=== PATIENT | male | born 1955 | race Caucasian/White ===

== ENCOUNTER → 2019-10-03 16:58 | Outpatient (BNVA) | payer MEDICARE, SELFPAY | PROVIDERS: Family Provider Nurse Practitioner; Visit Provider Family Medicine | DX: E11.9 Type 2 diabetes mellitus without complications (principal); E11.42 Type 2 diabetes mellitus with diabetic polyneuropathy; Z79.4 Long term (current) use of insulin; E78.5 Hyperlipidemia, unspecified; I10 Essential (primary) hypertension; J44.9 Chronic obstructive pulmonary disease, unspecified; K21.9 Gastro-esophageal reflux disease without esophagitis | CPT/HCPCS: 80053; 80061; 83036; 85025 ==

== ENCOUNTER → 2019-12-13 09:01 | Outpatient (BNVA) | payer MEDICARE, SELFPAY | PROVIDERS: Family Provider Nurse Practitioner; Visit Provider Family Medicine | DX: E11.42 Type 2 diabetes mellitus with diabetic polyneuropathy (principal); Z79.4 Long term (current) use of insulin | CPT/HCPCS: 83036 ==

== ENCOUNTER 2020-03-15 11:25 | Emergency (ER) | payer MEDICARE, SELFPAY ==
[2020-03-15 11:31] VITALS: BP 106/55; PULSE 78; RESP 20; TEMP 36.4; O2SAT 93; BMI 46.5
[2020-03-15 11:41] VITALS: BP 130/64; PULSE 75; RESP 17; O2SAT 94
[2020-03-15] MEDS: HYDROcodone-acetaminophen 7.5-325 mg Tablet 1 TAB PO (11:41)
--- NOTE | 2020-03-15 11:46 | W.ED.BACK ---
HPI - Back Pain/Injury General: Chief Complaint: Back Pain/Injury Stated Complaint: BACK PAIN Time Seen by Provider: 03/15/20 11:29 Source: patient Mode of arrival: ambulatory Limitations: no limitations History of Present Illness: HPI Narrative: 4-year-old male states for the last 5 days has had left lower back pain has been sharp in nature. He states it is much worse with twisting or bending. States is improved with rest. He states the pain is a 5 out of 10. He denies any bowel or bladder incontinence. Denies any numbness to his legs. Denies any fever or injury. Associated symptoms: Deny abdominal pain, chills, dysuria, fever(s), nausea or vomiting Review of Systems Const: Denies: fever(s), chills, body aches or change in appetite Eyes: Denies: blurry vision or eye discomfort ENMT: Denies: throat pain or dental pain Card: Denies: chest pain Resp: Denies: dyspnea GI: Denies: abdominal pain, nausea, vomiting or diarrhea : Denies: dysuria Musc: Reports: back pain Skin/Breast: Denies: rash Neuro: Denies: headache(s) Psych: Denies: depression Stephen/Lymph: Denies: easy bruising All/Imm: Denies: urticaria PFSH ED PFSH: Medical History (Updated 03/15/20 @ 11:37 by Nik Spence MD) BPH (benign prostatic hyperplasia) Chronic pain of both shoulders Dyslipidemia Generalized anxiety disorder GERD (gastroesophageal reflux disease) Hypertension Major depressive disorder, recurrent, moderate Seasonal allergies Sleep apnea Type 2 diabetes mellitus Surgical History H/O circumcision H/O shoulder surgery H/O wrist surgery History of appendectomy History of colonoscopy Family History Mother Diabetes Grandmother Heart disease Social History Smoking and tobacco status: former smoker Quit status (tobacco): has quit using tobacco Year quit tobacco: 2011 Second hand smoke exposure: No Alcohol intake: never Desire information about alcohol rehabilitation?: No Desire information about substance/drug rehabilitation?: No Caregiver/support person: Yes Lives independently: No Household members: spouse History of recent travel: No Sexually active: Yes Current gender identity: Male Physical Exam Const: COMMON NORMALS: no acute distress, patient oriented x3 and healthy appearing HENMT: COMMON NORMALS: normocephalic and atraumatic HEAD & SCALP: normocephalic and atraumatic Eye: COMMON NORMALS: Equal, round and reactive pupils present and EOMs intact bilaterally PUPIL: Yes Equal, round and reactive pupils present Neck/C-Spine: COMMON NORMALS: full ROM and supple Chest: COMMONS NORMALS: normal inspection of the chest and normal palpation of entire chest wall Resp: COMMON NORMALS: normal respiratory effort, No retractions, No use of accessory muscles and clear to auscultation bilaterally AUSCULTATION: clear to auscultation bilaterally Cardio: COMMON NORMALS: regular rate, regular rhythm and No murmurs present (Cardio) RATE: regular rate RHYTHM: regular rhythm GI: COMMON NORMALS: Normal to inspection, nondistended, normoactive bowel sounds present, Soft to palpation, non-tender and no masses PALPATION: Yes Soft to palpation Back/Pelvis: OTHER: Tenderness over left lower back. No midline tenderness. No saddle anesthesia. Extremity: COMMON NORMALS: normal to inspection and full ROM Neuro: COMMON NORMALS: patient oriented x3, moves all extremities and no focal motor deficits Psych: COMMON NORMALS: mental status grossly normal, Normal thought process present and cooperative THOUGHT PROCESS: Normal thought process present Skin: COMMON NORMALS: no rashes or lesions noted and no wounds GENERAL SKIN EXAM: no rashes or lesions noted Course Vital Signs: Vital signs: Vital Signs Temperature 97.6 F 03/15/20 11:31 Pulse Rate 75 03/15/20 11:41 Respiratory Rate 17 03/15/20 11:41 Blood Pressure 130/64 03/15/20 11:41 Pulse Oximetry 94 03/15/20 11:41 MDM - Back Pain/Injury MDM Narrative: Medical decision making narrative: Patient presents with back pain is likely a lumbar strain. Patient is well-appearing here and is stable for discharge. He has no signs of epidural abscess or cord compression. We will place him on Naprosyn along with Robaxin. He is to follow-up with PCP in 3 to 5 days return if worsening. He understands agrees to plan. Discharge Plan Discharge Patient Disposition: Home Clinical Impression: Lumbar strain Qualifiers: Encounter type: initial encounter Qualified Code(s): S39.012A - Strain of muscle, fascia and tendon of lower back, initial encounter Condition: Stable Prescriptions: New Naprosyn 500 mg tablet 500 mg PO BID PRN (Reason: pain) Qty: 20 RF: 0 Marshall 5-325 mg tablet 1 tab PO Q6H PRN (Reason: pain) Qty: 14 RF: 0 Robaxin-750 750 mg tablet 750 mg PO Q6H Qty: 30 RF: 0 No Action atorvastatin 20 mg tablet 20 mg PO DAILY 30 Days Qty: 30 RF: 11 cetirizine 10 mg capsule 10 mg PO DAILY 30 Days Qty: 30 RF: 11 lisinopril 10 mg tablet 10 mg PO DAILY 30 Days Qty: 30 RF: 5 (DME) blood-glucose meter Misc See Rx Instructions .ROUTE .MEDSUPPLY Qty: 1 RF: 0 polymyxin B sulf-trimethoprim [Polytrim] 10,000 unit- 1 mg/mL drops 1 drp ophthalmic (eye) .four times daily 7 Days Qty: 10 RF: 0 bupropion HCl [Wellbutrin XL] 300 mg tablet extended release 24 hr 300 mg PO QAM Qty: 30 RF: 3 trazodone 100 mg tablet 100 mg PO .One to two bedtime PRN (Reason: insomnia) Qty: 60 RF: 3 hydroxyzine pamoate [Vistaril] 25 mg capsule 50 mg PO TID PRN (Reason: anxiety) Qty: 180 RF: 3 omeprazole 20 mg capsule,delayed release(DR/EC) 20 mg PO BID 30 Days Qty: 60 RF: 0 doxazosin 4 mg tablet See Rx Instructions .ROUTE .COMPLEX Qty: 30 RF: 0 cyclobenzaprine 10 mg tablet See Rx Instructions .ROUTE .COMPLEX Qty: 30 RF: 0 atenolol 25 mg tablet See Rx Instructions .ROUTE .COMPLEX Qty: 30 RF: 0 gabapentin 300 mg capsule See Rx Instructions .ROUTE .COMPLEX Qty: 30 RF: 0 ibuprofen 800 mg tablet See Rx Instructions .ROUTE .COMPLEX Qty: 60 RF: 0 glipizide 10 mg tablet See Rx Instructions .ROUTE .COMPLEX Qty: 60 RF: 0 insulin aspart U-100 [Novolog Flexpen U-100 Insulin] 100 unit/mL (3 mL) insulin pen See Rx Instructions .ROUTE .COMPLEX Qty: 30 RF: 0 insulin degludec [Tresiba FlexTouch U-200] 200 unit/mL (3 mL) insulin pen See Rx Instructions .ROUTE .COMPLEX Qty: 27 RF: 0 Discharge Orders: Discharge Order (Routine); Ordered 03/15/20 Ordered By: Nik Spence Referrals: Kylie Mills DPM [Family Provider] - 1-3 days Discharge Diet: Advance as tolerated Discharge Activity: Resume usual activity Patient Instructions: Low Back Strain (ED) Coding Level of Care Code ED Torch Straightener And Heater for Ammy Rust
== END 2020-03-15 11:43 | disposition home or self-care (01) ==
LOC: ER 05-16 10:35
PROVIDERS: Emergency Provider Emergency Medicine; Family Provider Nurse Practitioner
DX: S39.012A Strain of muscle, fascia and tendon of lower back, initial encounter (principal); Z79.4 Long term (current) use of insulin; E78.5 Hyperlipidemia, unspecified; I10 Essential (primary) hypertension; E11.9 Type 2 diabetes mellitus without complications; Z87.891 Personal history of nicotine dependence; X58.XXXA Exposure to other specified factors, initial encounter
CPT/HCPCS: 12345; 99281

== ENCOUNTER → 2020-03-19 18:00 | Outpatient (BNVA) | payer MEDICARE, SELFPAY | PROVIDERS: Family Provider Nurse Practitioner; Visit Provider Family Medicine | DX: E11.42 Type 2 diabetes mellitus with diabetic polyneuropathy (principal); I10 Essential (primary) hypertension; Z79.4 Long term (current) use of insulin; G89.29 Other chronic pain; M54.9 Dorsalgia, unspecified | CPT/HCPCS: 80048; 83036 ==

== ENCOUNTER → 2020-04-25 11:16 | Outpatient (BNVA) | payer MEDICARE, SELFPAY | PROVIDERS: Family Provider Nurse Practitioner; Visit Provider Family Medicine | DX: S91.332A Puncture wound without foreign body, left foot, initial encounter (principal); M79.672 Pain in left foot; X58.XXXA Exposure to other specified factors, initial encounter | CPT/HCPCS: 73630 ==

== ENCOUNTER → 2020-06-18 14:02 | Outpatient (BNVA) | payer MEDICARE, SELFPAY | PROVIDERS: Family Provider Nurse Practitioner; Visit Provider Family Medicine | DX: E11.42 Type 2 diabetes mellitus with diabetic polyneuropathy (principal); M54.9 Dorsalgia, unspecified; G89.29 Other chronic pain; M54.5 Low back pain; I10 Essential (primary) hypertension; L98.491 Non-pressure chronic ulcer of skin of other sites limited to breakdown of skin; F33.1 Major depressive disorder, recurrent, moderate; Z79.4 Long term (current) use of insulin | CPT/HCPCS: 83036 ==

== ENCOUNTER → 2020-09-11 11:20 | Outpatient (BNVA) | payer MEDICARE, SELFPAY | PROVIDERS: Family Provider Nurse Practitioner; Visit Provider Family Medicine | DX: E11.42 Type 2 diabetes mellitus with diabetic polyneuropathy (principal); E78.5 Hyperlipidemia, unspecified; Z79.4 Long term (current) use of insulin; J32.9 Chronic sinusitis, unspecified; K21.9 Gastro-esophageal reflux disease without esophagitis; I10 Essential (primary) hypertension | CPT/HCPCS: 80048; 80061; 83036 ==

== ENCOUNTER → 2020-12-11 12:00 | Outpatient (BNVA) | payer MEDICARE, SELFPAY | PROVIDERS: Family Provider Nurse Practitioner; PCP Family Medicine; Visit Provider Family Medicine | DX: E11.42 Type 2 diabetes mellitus with diabetic polyneuropathy (principal); I10 Essential (primary) hypertension; M54.5 Low back pain; G89.29 Other chronic pain; Z79.4 Long term (current) use of insulin | CPT/HCPCS: 80048; 83036 ==

== ENCOUNTER → 2021-01-05 17:29 | Outpatient (BNVA) | payer MEDICARE, SELFPAY | PROVIDERS: Family Provider Nurse Practitioner; PCP Family Medicine; Visit Provider Nurse Practitioner Family | DX: Z20.822 Contact with and (suspected) exposure to COVID-19 (principal) | CPT/HCPCS: 87635 ==

== ENCOUNTER → 2021-03-17 09:26 | Outpatient (BNVA) | payer MEDICARE, SELFPAY | PROVIDERS: Family Provider Nurse Practitioner; PCP Family Medicine; Visit Provider Family Medicine | DX: E11.42 Type 2 diabetes mellitus with diabetic polyneuropathy (principal); I10 Essential (primary) hypertension; M54.9 Dorsalgia, unspecified; G89.29 Other chronic pain; M25.511 Pain in right shoulder; K21.9 Gastro-esophageal reflux disease without esophagitis; E78.5 Hyperlipidemia, unspecified; N40.0 Benign prostatic hyperplasia without lower urinary tract symptoms; M25.512 Pain in left shoulder; N40.1 Benign prostatic hyperplasia with lower urinary tract symptoms; R39.11 Hesitancy of micturition; Z79.4 Long term (current) use of insulin | CPT/HCPCS: 80048; 83036 ==

== ENCOUNTER → 2021-07-07 09:24 | Outpatient (BNVA) | payer MEDICARE, SELFPAY | PROVIDERS: Family Provider Nurse Practitioner; PCP Family Medicine; Visit Provider Family Medicine | DX: M54.9 Dorsalgia, unspecified (principal); G89.29 Other chronic pain; M25.511 Pain in right shoulder; M25.512 Pain in left shoulder; E11.42 Type 2 diabetes mellitus with diabetic polyneuropathy; E78.5 Hyperlipidemia, unspecified; I10 Essential (primary) hypertension; F33.1 Major depressive disorder, recurrent, moderate; Z79.4 Long term (current) use of insulin | CPT/HCPCS: 80048; 80061; 83036 ==

== ENCOUNTER → 2021-10-06 13:43 | Outpatient (BNVA) | payer MEDICARE, SELFPAY | PROVIDERS: Family Provider Nurse Practitioner; PCP Family Medicine; Visit Provider Family Medicine | DX: E11.9 Type 2 diabetes mellitus without complications (principal); M54.9 Dorsalgia, unspecified; G89.29 Other chronic pain; M25.511 Pain in right shoulder; M25.512 Pain in left shoulder; N40.0 Benign prostatic hyperplasia without lower urinary tract symptoms; J30.2 Other seasonal allergic rhinitis; E78.5 Hyperlipidemia, unspecified; I10 Essential (primary) hypertension; K21.9 Gastro-esophageal reflux disease without esophagitis; E11.42 Type 2 diabetes mellitus with diabetic polyneuropathy; Z79.4 Long term (current) use of insulin; Z12.5 Encounter for screening for malignant neoplasm of prostate; F33.1 Major depressive disorder, recurrent, moderate | CPT/HCPCS: 80053; 83036; 84153 ==

== ENCOUNTER → 2021-12-05 12:29 | Outpatient (BNVA) | payer MEDICARE, SELFPAY | PROVIDERS: Family Provider Nurse Practitioner; PCP Family Medicine; Visit Provider Family Medicine | DX: G89.29 Other chronic pain (principal) | CPT/HCPCS: 72100 ==

== ENCOUNTER 2021-12-12 12:06 | Emergency (ER) | payer MEDICARE, SELFPAY ==
[2021-12-12 12:16] VITALS: BP 95/62; PULSE 70; RESP 15; TEMP 36.3; O2SAT 94; BMI 47.2
[2021-12-12 13:06] LABS: Add Urine Microscopic? NO; Charge for UA Resulting for Rev; Urine Appearance Clear (CLEAR); Urine Color Yellow (Yellow)
[2021-12-12 13:07] LABS: Bilirubin Urine Neg (Negative); Blood Urine Neg (Negative); Glucose Urine UA 2+ (Normal); Ketones Urine Negative (Negative); Leukocyte Esterase Urine Negative (Negative); Nitrate Urine Negative (Negative); Protein Urine Neg (Negative); Specific Gravity, Urine 1.025 (1.005-1.030); Urobilinogen Urine Norm (Negative); pH Urine 5 (5-7)
--- NOTE | 2021-12-12 13:32 | CT_ITS ---
WS: [id number] CT LUMBAR SPINE, noncontrast. HISTORY: back pain TECHNIQUE: Contiguous 2.5 mm axial imaging are performed. Sagittal and coronal reformats are submitte d and reviewed. [facility] at least one of these dose optimization techni ques: automated exposure control; mA and/or kV adjustment per patient size (includes targeted exams w here dose is matched to clinical indication); or iterative reconstruction. IV contrast: None DLP: 2914.59 mGy.cm COMPARISON: 09/16/2014 Posterior lumbar alignment is normal. Mild disc desiccation at L5-S1. No fracture. L1-2: Normal. L2-3: Mild disc bulging. No stenosis. L3-4: Mild disc bulging and mild ligamentum flavum and facet arthritis. There is mild central and sub articular recess narrowing. L4-5: Moderate annular disc bulging encroaching upon the ventral thecal sac. Mild ligamentum flavum a nd facet arthritis. Mild bilateral foraminal stenosis. Mild disc encroachment upon the traversing L5 nerve roots. L5-S1: Mild annular disc bulge with a broad-based central disc protrusion. Disc protrusion extends in to the subarticular recesses and foramina, greatest on the LEFT. Mass effect upon the central thecal sac and narrowing of the LEFT subarticular recess. Mild atherosclerosis aorta. Degenerative air in the SI joints. CT/CT lumbar spine wo con* [id number] IMPRESSION: 1. No acute lumbar spine fracture. 2. New broad-based central to RIGHT paracentral disc protrusion at L5-S1. Cont act and deformity of the ventral thecal sac with encroachment into the subartic ular recesses and contact on the S1 nerve roots. Greater contact on the LEFT S1 nerve root with more significant displacement. 3. Mild central and subarticular recess narrowing at L3-4. 4. Mild disc encroachment upon the traversing L5 nerve roots.
--- NOTE | 2021-12-12 13:33 | ED_ITS ---
HPI - Back Pain/Injury General: Chief Complaint: Urogenital-Male Stated Complaint: kidney pain Time Seen by Provider: 12/12/21 13:23 Source: patient and family Mode of arrival: ambulatory Limitations: no limitations History of Present Illness: Patient is a 66-year-old male who presents to ED today along with his for evaluation of lower back pain. Patient states pain has been present over the past 2 weeks. Patient states he was recently seen by his primary care provider and had lumbar x-rays performed. Radiologist commented on bilateral renal calculi. Patient states his primary care provider sent him over for further evaluation of his kidney stones. Patient is not having any flank pain. He reports a previous history of kidney stones. He is not complaining of hematuria, urinary urgency or frequency, or difficulty starting a stream. He is not running fevers. He has no abdominal pain, nausea, vomiting, diarrhea. He does report his back pain intermittently will radiate down his left lower extremity. He does not complain of any saddle anesthesia or dysfunction with bowel/bladder. MD elicited complaint: back pain Onset (ago): week(s) Timing: constant Severity: severe Similar Symptoms Previously: No Location: lumbar spine, right lower back and left lower back Radiation: left leg below the knee Relieving factors: none Associated symptoms: Deny abdominal pain, chills, change in bowel habits, dysuria, fatigue, fever(s), hematuria, nausea, urinary urgency or vomiting Work related injury: No Review of Systems Const: Denies: fever(s), chills, body aches, fatigue or malaise Card: Denies: chest pain Resp: Denies: dyspnea GI: Denies: abdominal pain, nausea, vomiting, diarrhea or change in bowel habits : Denies: flank pain, difficulty urinating, dysuria, urinary frequency, urinary urgency, urinary hesitancy or hematuria Musc: Reports: back pain; Denies: neck pain, extremity pain or joint pain Skin/Breast: Denies: rash Neuro: Denies: headache(s), numbness in extremities, weakness in extremities or sensory changes PFS ED PFSH: Medical History BPH (benign prostatic hyperplasia) (~06/2020) Chronic back pain Chronic pain of both shoulders Dyslipidemia Generalized anxiety disorder GERD (gastroesophageal reflux disease) Hypertension Major depressive disorder, recurrent, moderate Psychiatric care Seasonal allergies Sleep apnea Type 2 diabetes mellitus Surgical History H/O circumcision H/O shoulder surgery H/O wrist surgery History of appendectomy History of colonoscopy Family History Mother Diabetes Grandmother Heart disease Social History Smoking and tobacco status: former smoker Quit status (tobacco): has quit using tobacco Year quit tobacco: 2011 Second hand smoke exposure: No Alcohol intake: never Desire information about alcohol rehabilitation?: No Desire information about substance/drug rehabilitation?: No Caregiver/support person: Yes Lives independently: No Household members: spouse History of recent travel: No Sexually active: Yes Current gender identity: Male Physical Exam Const: COMMON NORMALS: no acute distress, patient oriented x3, no limitations and alert GENERAL APPEARANCE: cooperative NUTRITIONAL APPEARANCE: obese m orbidly obese ORIENTATION/CONSCIOUSNESS: Yes awake, Yes oriented to person, Yes oriented to place and Yes oriented to time Resp: COMMON NORMALS: normal respiratory effort and clear to auscultation bilaterally AUSCULTATION: clear to auscultation bilaterally Cardio: COMMON NORMALS: regular rate and regular rhythm RATE: regular rate RHYTHM: regular rhythm GI: COMMON NORMALS: Normal to inspection, nondistended, normoactive bowel s ounds present, Soft to palpation and non-tender PALPATION: Yes Soft to pa lpation : COMMON NORMALS: Yes no CVA tenderness BLADDER/KIDNEY EXAM: Yes no CVA tenderness Back/Pelvis: COMMON NORMALS: no CVA tenderness THORACIC SPINE/UPPER BACK: Yes normal to inspection, No thoracic spinal tenderness and No paraspinal muscle tenderness LUMBAR SPINE/LOWER BACK: Yes pain with ROM, Yes lumbar spinal tenderness, Yes paraspinal muscle tenderness and No paraspinal muscle spasm PELVIS: Yes buttocks normal SACROILIAC JOINTS: Yes SI joints normal SACRUM: no tenderness COCCYX: no tenderness OTHER: pain across lower back and mid to lower lumbar vertebrae Extremity: COMMON NORMALS: normal to inspection and full ROM GENERAL: Yes normal exam except as noted Neuro: AMBERLY COMA SCALE: document GCS findings [place] coma scale eye opening: Spontaneous Amberly coma scale verbal response: Orientated Amberly coma scale motor response: Obey commands Amberly coma scale total score: 15 COMMON NORMALS: patient oriented x3, moves all extremities, no focal motor deficits, no sensory deficits noted and gait normal SENSORIUM/ORIENTATION: Yes alert, Yes oriented to person, Yes oriented to place and Yes oriented to time MOTOR EXAM: 5/5 motor strength present throughout Skin: COMMON NORMALS: no rashes or lesions noted GENERAL SKIN EXAM: no rash es or lesions noted Course Vital Signs: Vital signs: Vital Signs Temperature 97.4 F L 12/12/21 12:16 Pulse Rate 70 12/12/21 12:16 Respiratory Rate 15 12/12/21 12:16 Blood Pressure 95/62 12/12/21 12:16 Pulse Oximetry 94 12/12/21 12:16 MDM - Back Pain/Injury Medical Decision Making Patient had the same bilateral renal calculi on previous x-rays dated back from 2018. He is not having any flank pain. He is not having any urinary complaints. He is tender to palpation to his mid to lower lumbar spine and across his lower back. He does have lumbar radiculopathy symptoms. I do not have any suspicion that patient's back pain is originating from the calculus formations. Blood work overall is unremarkable. He is an uncontrolled diabetic. His UA is clear. CT scan of his lumbar spine does show broad-based disc protrusion at his L5-S1 level with contact on his left S1 nerve root. Patient already takes anti-inflammatories, muscle relaxers, and hydrocodone as needed for pain. Due to his uncontrolled diabetes I would be hesitant to place him on steroids at this time. Recommend he follow-up with primary care for further evaluation and initiation of conservative treatments at this time for his back pain including but not limited to weight loss, physical therapy, pain management, etc. Labs : 12/12/21 13:40 12/12/21 13:40 Radiology Impressions Lumbar Spine CT 12/12/21 13:32 IMPRESSION: 1. No acute lumbar spine fracture. 2. New broad-based central to RIGHT paracentral disc protrusion at L5-S1. Contact and deformity of the ventral thecal sac with encroachment into the subarticular recesses and contact on the S1 nerve roots. Greater contact on the LEFT S1 nerve root with more significant displacement. 3. Mild central and subarticular recess narrowing at L3-4. 4. Mild disc encroachment upon the traversing L5 nerve roots. Laboratory Results WBC 10.5 10^3/uL (4.0-10.0) H 12/12/21 13:40 RBC 4.25 10^6/uL (4.1-5.3) 12/12/21 13:40 Hgb 12.3 g/dL (11.7-16.6) 12/12/21 13:40 Hct 36.5 % (42.0-52.0) L 12/12/21 13:40 MCV 85.9 fl (80-94) 12/12/21 13:40 MCH 28.9 pg (28.0-34.0) 12/12/21 13:40 MCHC 33.7 g/dL (30.0-36.0) 12/12/21 13:40 RDW 13.0 % (12.1-15.1) 12/12/21 13:40 Plt Count 269 10^3/cmm (130-400) 12/12/21 13:40 MPV 10.5 fL (7.4-10.4) H 12/12/21 13:40 Neut % (Auto) 64.2 % 12/12/21 13:40 Lymph % (Auto) 26.6 % 12/12/21 13:40 [place] % (Auto) 6.7 % 12/12/21 13:40 Eos % (Auto) 1.3 % 12/12/21 13:40 Baso % (Auto) 0.5 % 12/12/21 13:40 Neut # (Auto) 6.76 10^3/uL (1.8-7.7) 12/12/21 13:40 Lymph # (Auto) 2.8 10^3/uL (0.8-4.8) 12/12/21 13:40 [place] # (Auto) 0.7 10^3/uL (0.2-0.9) 12/12/21 13:40 Eos # (Auto) 0.1 10^3/uL (0.0-0.8) 12/12/21 13:40 Baso # (Auto) 0.1 10^3/uL (0.0-0.1) 12/12/21 13:40 Nucleated RBC % (auto) 0 % 12/12/21 13:40 Nucleated RBCs # 0.0 /100WBC 12/12/21 13:40 Sodium 134 mmol/L (136-145) L 12/12/21 13:40 Potassium 4.7 mmol/L (3.5-5.1) 12/12/21 13:40 Chloride 100 mmol/L (98-107) 12/12/21 13:40 Carbon Dioxide 23 mmol/L (22-29) 12/12/21 13:40 Anion Gap 15.7 (5-19) 12/12/21 13:40 BUN 21 mg/dL (8-23) 12/12/21 13:40 Creatinine 1.1 mg/dL (0.7-1.2) 12/12/21 13:40 GFR Calculation 67.4 mL/min (90-130) L 12/12/21 13:40 Glucose 256 mg/dL (65-115) H 12/12/21 13:40 Calculated Osmolality 290 mOsm/kg (285-295) 12/12/21 13:40 Calcium 8.9 mg/dL (8.5-10.5) 12/12/21 13:40 Total Bilirubin 0.3 mg/dL (0.15-1.2) 12/12/21 13:40 AST 24 U/L (0-40) 12/12/21 13:40 ALT 18 U/L (0-41) 12/12/21 13:40 Alkaline Phosphatase 85 IU/L (40-130) 12/12/21 13:40 Total Protein 7.7 g/dL (6.6-8.7) 12/12/21 13:40 Albumin 3.9 g/dL (3.5-5.2) 12/12/21 13:40 Globulin 3.8 g/dL (1.3-4.6) 12/12/21 13:40 Urine Color Yellow (Yellow) 12/12/21 13:00 Urine Appearance Clear (CLEAR) 12/12/21 13:00 Urine pH 5 (5-7) 12/12/21 13:00 Ur Specific [place] 1.025 (1.005-1.030) 12/12/21 13:00 Urine Protein Neg (Negative) 12/12/21 13:00 Urine Glucose (UA) 2+ (Normal) H 12/12/21 13:00 Urine Ketones Negative (Negative) 12/12/21 13:00 Urine Blood Neg (Negative) 12/12/21 13:00 Urine Nitrate Negative (Negative) 12/12/21 13:00 Urine Bilirubin Neg (Negative) 12/12/21 13:00 Urine Urobilinogen Norm mg/dL (Negative) 12/12/21 13:00 Ur Leukocyte Esterase Negative (Negative) 12/12/21 13:00 Discharge Plan Discharge Patient Disposition: Home Clinical Impression: Protrusion of lumbar intervertebral disc Condition: Stable Prescriptions: No Action (DME) blood-glucose meter Misc See Rx Instructions .ROUTE .MEDSUPPLY Qty: 1 0RF Rx Instructions: ONE TOUCH ULTRA METER hydroxyzine pamoate [Vistaril] 25 mg capsule 50 mg PO TID PRN (Reason: anxiety) Qty: 180 3RF Rx Instructions: 1-2 caps 3x daily trazodone 100 mg tablet See Rx Instructions .ROUTE .COMPLEX Qty: 60 2RF Dose Instruction: TAKE 1 TO 2 TABLETS BY MOUTH AT BEDTIME FOR INSOMNIA Rx Instructions: TAKE 1 TO 2 TABLETS BY MOUTH AT BEDTIME FOR INSOMNIA bupropion HCl 300 mg tablet extended release 24 hr See Rx Instructions .ROUTE .COMPLEX Qty: 30 2RF Dose Instruction: TAKE ONE TABLET BY MOUTH EVERY MORNING Rx Instructions: TAKE ONE TABLET BY MOUTH EVERY MORNING Tresiba FlexTouch U-200 200 unit/mL (3 mL) insulin pen See Rx Instructions .ROUTE .COMPLEX Qty: 27 2RF Dose Instruction: 85 UNITS SUBCUT TWICE A DAY FOR 30 DAYS Rx Instructions: 85 UNITS SUBCUT TWICE A DAY FOR 30 DAYS insulin aspart U-100 [Novolog Flexpen U-100 Insulin] 100 unit/mL (3 mL) insulin pen See Rx Instructions .ROUTE .COMPLEX Qty: 60 2RF Dose Instruction: 60 UNIT (0.6 ML) SUBCUT THREE TIMES A DAY FOR 30 DAYS WITH MEALS Rx Instructions: 60 UNIT (0.6 ML) SUBCUT THREE TIMES A DAY FOR 30 DAYS WITH MEALS glipizide 10 mg tablet See Rx Instructions .ROUTE .COMPLEX Qty: 60 5RF Dose Instruction: TAKE ONE TABLET BY MOUTH TWICE A DAY FOR 30 DAYS Rx Instructions: TAKE ONE TABLET BY MOUTH TWICE A DAY FOR 30 DAYS doxazosin 4 mg tablet See Rx Instructions .ROUTE .COMPLEX Qty: 30 5RF Dose Instruction: TAKE ONE TABLET BY MOUTH DAILY FOR 30 DAYS Rx Instructions: TAKE ONE TABLET BY MOUTH DAILY FOR 30 DAYS cetirizine 10 mg tablet See Rx Instructions .ROUTE .COMPLEX Qty: 30 11RF Dose Instruction: TAKE ONE TABLET BY MOUTH DAILY Rx Instructions: TAKE ONE TABLET BY MOUTH DAILY atorvastatin 20 mg tablet 20 mg PO DAILY 30 Days Qty: 30 5RF Rx Instructions: 340B atenolol 25 mg tablet See Rx Instructions .ROUTE .COMPLEX Qty: 30 5RF Dose Instruction: TAKE ONE TABLET BY MOUTH DAILY FOR 30 DAYS Rx Instructions: TAKE ONE TABLET BY MOUTH DAILY FOR 30 DAYS lisinopril 10 mg tablet 10 mg PO DAILY 30 Days Qty: 30 5RF Rx Instructions: 340B omeprazole 40 mg capsule,delayed release(DR/EC) 40 mg PO DAILY 30 Days Qty: 30 5RF Rx Instructions: 340B hydrocodone-acetaminophen 5-325 mg tablet 1 tab PO DAILY PRN (Reason: pain) 30 Days Qty: 30 0RF (DME) lancets [OneTouch UltraSoft Lancets] Misc See Rx Instructions .ROUTE .COMPLEX Qty: 100 11RF Dose Instruction: CHECK BLOOD SUGAR 4 TIMES DAILY ULTRASOFT LANCETS Rx Instructions: CHECK BLOOD SUGAR 4 TIMES DAILY ULTRASOFT LANCETS (DME) blood sugar diagnostic Strip See Rx Instructions .ROUTE .MEDSUPPLY Qty: 100 12RF Rx Instructions: use three times daily (DME) Comfort EZ Pen [place] 33 gauge x 1/4 needle See Rx Instructions .ROUTE .MEDSUPPLY Qty: 100 11RF Rx Instructions: As directed ibuprofen 800 mg tablet See Rx Instructions .ROUTE .COMPLEX Qty: 60 5RF Dose Instruction: TAKE ONE TABLET BY MOUTH TWICE A DAY NEEDED FOR PAIN FOR 30 DAYS Rx Instructions: TAKE ONE TABLET BY MOUTH TWICE A DAY NEEDED FOR PAIN FOR 30 DAYS 340B gabapentin 300 mg capsule 300 mg PO TID 30 Days Qty: 90 2RF cyclobenzaprine 10 mg tablet See Rx Instructions .ROUTE .COMPLEX Qty: 90 2RF Dose Instruction: TAKE ONE TABLET BY MOUTH THREE TIMES A DAY NEEDED FOR MUSCLE SPASMS FOR 30 DAYS Rx Instructions: TAKE ONE TABLET BY MOUTH THREE TIMES A DAY NEEDED FOR MUSCLE SPASMS FOR 30 DAYS miscellaneous medical supply Misc See Rx Instructions miscellaneous .COMPLEX Qty: 1 5RF Rx Instructions: BiPAP supplies, mask and tubing etc. miscellaneous; Discharge Orders: Discharge ED (Routine); Ordered 12/12/21 Ordered By: Daniela Ashton Referrals: Lia Pennington MD [Primary Care Provider] - Patient Instructions: Lumbar Disc Herniation (ED) Coding Level of Care Code ED Product Development Scientist for Chg Fwd Exam Comprehensive
[2021-12-12 13:46] LABS: Basophils # 0.1 10^3/uL (0.0-0.1); Basophils % 0.5 %; Eosinophils # 0.1 10^3/uL (0.0-0.8); Eosinophils % 1.3 %; Hematocrit 36.5 % (42.0-52.0); Hemoglobin 12.3 g/dL (11.7-16.6); Lymphocytes # 2.8 10^3/uL (0.8-4.8); Lymphocytes % 26.6 %; Mean Corpuscular HGB Conc 33.7 g/dL (30.0-36.0); Mean Corpuscular Hemoglobin 28.9 pg (28.0-34.0); Mean Corpuscular Volume 85.9 fl (80-94); Mean Platelet Volume 10.5 fL (7.4-10.4); Monocytes # 0.7 10^3/uL (0.2-0.9); Monocytes % 6.7 %; Neutrophils # 6.76 10^3/uL (1.8-7.7); Neutrophils % 64.2 %; Nucleated Red Blood Cells % 0 %; Platelet Count 269 10^3/cmm (130-400); Red Blood Count 4.25 10^6/uL (4.1-5.3); White Blood Count 10.5 10^3/uL (4.0-10.0)
[2021-12-12] MEDS: ketorolac 30 mg/mL INJ IVP (14:02)
[2021-12-12] MEDS: orphenadrine 30 mg/mL Inj 2 mL 60 MG IVP (14:03)
[2021-12-12 14:12] LABS: Albumin Level 3.9 g/dL (3.5-5.2); Alkaline Phosphatase 85 IU/L (40-130); Blood Urea Nitrogen 21 mg/dL (8-23); Calcium 8.9 mg/dL (8.5-10.5); Carbon Dioxide 23 mmol/L (22-29); Chloride 100 mmol/L (98-107); Globulin 3.8 g/dL (1.3-4.6); Glomerular Filtration Rate 67.4 mL/min (90-130); Glucose 256 mg/dL (65-115); Osmolality Calculated 290 mOsm/kg (285-295); Sodium 134 mmol/L (136-145); Total Bilirubin 0.3 mg/dL (0.15-1.2); Total Protein 7.7 g/dL (6.6-8.7)
[2021-12-12 14:16] LABS: Alanine Aminotransferase 18 U/L (0-41); Anion Gap 15.7 (5-19); Aspartate Amino Transferase 24 U/L (0-40); Potassium 4.7 mmol/L (3.5-5.1)
[2021-12-12] MEDS: dexamethasone 10 mg/mL INJ 6 MG IM (14:41)
== END 2021-12-12 15:35 | disposition home or self-care (01) ==
PROVIDERS: Family Medicine; Emergency Provider Physician Assistant; PCP Family Medicine
DX: M51.26 Other intervertebral disc displacement, lumbar region (principal); Z79.84 Long term (current) use of oral hypoglycemic drugs; Z79.4 Long term (current) use of insulin; E78.5 Hyperlipidemia, unspecified; I10 Essential (primary) hypertension; E11.9 Type 2 diabetes mellitus without complications; Z87.891 Personal history of nicotine dependence
CPT/HCPCS: 72131; 80053; 81003; 85025; 96374; 96375; 99284; J1100; J1885; J2360

== ENCOUNTER → 2021-12-23 09:59 | Outpatient (BNVA) | payer MEDICARE, SELFPAY | PROVIDERS: PCP Family Medicine; Visit Provider Family Medicine | DX: E11.42 Type 2 diabetes mellitus with diabetic polyneuropathy (principal); Z79.4 Long term (current) use of insulin; M54.9 Dorsalgia, unspecified; G89.29 Other chronic pain | CPT/HCPCS: 83036 ==

== ENCOUNTER → 2022-03-25 10:07 | Outpatient (BNVA) | payer MEDICARE, SELFPAY | PROVIDERS: PCP Family Medicine; Visit Provider Family Medicine | DX: I10 Essential (primary) hypertension (principal); K21.9 Gastro-esophageal reflux disease without esophagitis; E11.9 Type 2 diabetes mellitus without complications; M54.9 Dorsalgia, unspecified; G89.29 Other chronic pain; M25.511 Pain in right shoulder; M25.512 Pain in left shoulder; N40.0 Benign prostatic hyperplasia without lower urinary tract symptoms; E78.5 Hyperlipidemia, unspecified; E11.42 Type 2 diabetes mellitus with diabetic polyneuropathy; Z79.4 Long term (current) use of insulin; J30.2 Other seasonal allergic rhinitis | CPT/HCPCS: 80048; 83036 ==

== ENCOUNTER 2022-06-22 10:45 | Observation (INO) | payer MEDICARE, SELFPAY ==
[2022-06-22] VITALS (43 sets, daily range): BP systolic 82–153; BP diastolic 50–104; PULSE 81–115; RESP 7–24; TEMP 36.5–36.7; O2SAT 93–99; BMI 47.5
--- NOTE | 2022-06-22 10:56 | ECG_ITS ---
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 Measurements Intervals [place] Rate: 102 P: 0 NE: 0 QRS: 137 QRSD: 83 T: 0 QT: 368 QTc: 481 Interpretive Statements ATRIAL FLUTTER/TACHYCARDIA WITH RAPID VENTRICULAR RESPONSE POSSIBLE RIGHT VENTRICULAR HYPERTROPHY [SOME/ALL OF: PROMINENT R IN V1, LATE TRANSITION, RAD, BUD, SSS] NONSPECIFIC ST & T-WAVE ABNORMALITY Compared to ECG 12/30/2015 06:08:52 T-wave abnormality now present Sinus rhythm no longer present Electronically Signed On 06-22-2022 20:29:12 MATERIAL HANDLER by Ida Segal M.D. [id number]
--- NOTE | 2022-06-22 10:57 | XRR_ITS ---
PROCEDURE INFORMATION: Exam: XR Chest Exam date and time: 06/22/2022 11:10 AM Age: 67 years old Clinical indication: Cough and dyspnea; Prior surgery; Surgery type: Appendeciomy; Additional info: Dyspnea/cough TECHNIQUE: Imaging protocol: Radiologic exam of the chest. Views: 1 view. COMPARISON: DX XR chest 1V [id number] 05/26/2021 9:00 PM FINDINGS: Lungs: Minimal bibasilar atelectasis. No consolidation. Pleural spaces: Unremarkable. No pleural effusion. No pneumothorax. Heart/Mediastinum: Stable cardiomediastinal silhouette. Bones/joints: Unremarkable. XR/XR chest 1V portable [id number] IMPRESSION: Minimal bibasilar atelectasis. Pneumonia should be excluded clinically.
--- NOTE | 2022-06-22 11:15 | ED_ITS ---
HPI - Weakness General: Chief complaint: Weakness Stated complaint: AFIB W/RVR & Time Seen by Provider: 06/22/22 10:52 Source: patient Mode of arrival: ambulatory History of Present Illness: 67-year-old female presents emergency room in [facility] with RVR this is a new rhythm for him he has never had this before. He said he has been very weak and intermittently been having rapid heart rates for the last 3 months. Arrival here his heart rate is 130s to 140s he is not having any chest pain orthopnea. MD Complaint: generalized weakness Onset (ago): month(s) (3) Duration: constant Location: generalized Migration: none Severity: moderate Relieving factors: none Exacerbating factors: none Associated symptoms: Denies chest pain, chills, confusion, melena, decreased appetite, diaphoresis, dysuria, easy bruising, fever(s), headache(s), myalgias, nausea, rash, short of breath, syncope or vomiting Review of Systems Const: Denies: fever(s), chills, fatigue, malaise or diaphoresis ENMT: Denies: throat pain, ear or mastoid pain, nasal discharge or nasal congestion Card: Reports: palpitations and irregular heart rhythm; Denies: chest pain, edema, swelling of feet/ankles or syncope Resp: Denies: dyspnea, productive cough or non-productive cough GI: Denies: abdominal pain, nausea, vomiting or melena : Denies: dysuria, urinary frequency or urinary urgency Musc: Denies: neck pain or back pain Skin/Breast: Denies: rash or pruritus Neuro: Denies: headache(s) or confusion Stephen/Lymph: Denies: easy bruising PFSH ED PFSH: Medical History BPH (benign prostatic hyperplasia) (~06/2020) Chronic back pain Chronic pain of both shoulders Dyslipidemia Generalized anxiety disorder GERD (gastroesophageal reflux disease) Hypertension Major depressive disorder, recurrent, moderate Psychiatric care Seasonal allergies Sleep apnea Type 2 diabetes mellitus Surgical History H/O circumcision H/O shoulder surgery H/O wrist surgery History of appendectomy History of colonoscopy Family History Mother Diabetes Grandmother Heart disease Social History Smoking and tobacco status: never smoked Quit status (tobacco): has quit using tobacco Year quit tobacco: 2011 Second hand smoke exposure: No Alcohol intake: never Desire information about alcohol rehabilitation?: No Desire information about substance/drug rehabilitation?: No Caregiver/support person: Yes Lives independently: No Household members: spouse History of recent travel: No Sexually active: Yes Current gender identity: Male Physical Exam Const: COMMON NORMALS: no acute distress GENERAL APPEARANCE: cooperative and comfortable ORIENTATION/CONSCIOUSNESS: Yes awake, Yes oriented to person, Yes oriented to place and Yes oriented to time HENMT: COMMON NORMALS: normocephalic, atraumatic and hearing grossly normal bilaterally HEAD & SCALP: normocephalic and atraumatic Resp: COMMON NORMALS: normal respiratory effort, No retractions, No use of accessory muscles and clear to auscultation bilaterally AUSCULTATION: clear to auscultation bilaterally Cardio: COMMON NORMALS: No murmurs present (Cardio) RATE: tachycardic RHYTHM: abnormal rhythm irregularly irregular GI: COMMON NORMALS: Soft to palpation and No hepatosplenomegaly present AUSCULTATION: Yes normoactive bowel sounds PALPATION: Yes Soft to palpation, No Tenderness to palpation present (GI), No Guarding due to palpation present (GI) and Yes No hepatosplenomegaly present Extremity: COMMON NORMALS: normal to inspection, capillary refill normal, no clubbing, cyanosis or edema, no calf tenderness and no pedal edema Neuro: SENSORIUM/ORIENTATION: Yes oriented to person, Yes oriented to place and Yes oriented to time Skin: COMMON NORMALS: no rashes or lesions noted GENERAL SKIN EXAM: no rashes or lesions noted Course Vital Signs: Vital signs: Vital Signs Temperature 98.1 F 06/22/22 10:49 Pulse Rate 87 06/22/22 13:50 Respiratory Rate 12 06/22/22 13:30 Blood Pressure 108/82 06/22/22 13:50 Pulse Oximetry 96 06/22/22 13:50 Oxygen Delivery Me thod 06/22/22 10:58 MDM - Weakness Medical Decision Making New onset A. fib actually was able to control the rate relatively quickly with a single dose of IV metoprolol and p.o. metoprolol he will require hospitalization on observation for further evaluation. Kj with hospitalist orders written Medical Records I reviewed the patient's medical records. Lab Data I reviewed the patient's lab results. 06/22/22 11:57 06/22/22 11:57 Radiology Impressions Chest X-Ray 06/22/22 10:57 IMPRESSION: Minimal bibasilar atelectasis. Pneumonia should be excluded clinically. Laboratory Results WBC 12.0 10^3/uL (4.0-10.0) H 06/22/22 11:57 RBC 4.31 10^6/uL (4.1-5.3) 06/22/22 11:57 Hgb 12.6 g/dL (11.7-16.6) 06/22/22 11:57 Hct 38.7 % (42.0-52.0) L 06/22/22 11:57 MCV 89.8 fl (80-94) 06/22/22 11:57 MCH 29.2 pg (28.0-34.0) 06/22/22 11:57 MCHC 32.6 g/dL (30.0-36.0) 06/22/22 11:57 RDW 13.2 % (12.1-15.1) 06/22/22 11:57 Plt Count 283 10^3/cmm (130-400) 06/22/22 11:57 MPV 9.6 fL (7.4-10.4) 06/22/22 11:57 Neut % (Auto) 66.3 % 06/22/22 11:57 Lymph % (Auto) 23.9 % 06/22/22 11:57 [place] % (Auto) 6.5 % 06/22/22 11:57 Eos % (Auto) 2.2 % 06/22/22 11:57 Baso % (Auto) 0.4 % 06/22/22 11:57 Neut # (Auto) 7.99 10^3/uL (1.8-7.7) H 06/22/22 11:57 Lymph # (Auto) 2.9 10^3/uL (0.8-4.8) 06/22/22 11:57 [place] # (Auto) 0.8 10^3/uL (0.2-0.9) 06/22/22 11:57 Eos # (Auto) 0.3 10^3/uL (0.0-0.8) 06/22/22 11:57 Baso # (Auto) 0.1 10^3/uL (0.0-0.1) 06/22/22 11:57 Nucleated RBC % (auto) 0 % 06/22/22 11:57 Nucleated RBCs # 0.0 /100WBC 06/22/22 11:57 Sodium 135 mmol/L (136-145) L 06/22/22 11:57 Potassium 4.2 mmol/L (3.5-5.1) 06/22/22 11:57 Chloride 101 mmol/L (98-107) 06/22/22 11:57 Carbon Dioxide 25 mmol/L (22-29) 06/22/22 11:57 Anion Gap 13.2 (5-19) 06/22/22 11:57 BUN 17 mg/dL (8-23) 06/22/22 11:57 Creatinine 0.8 mg/dL (0.7-1.2) 06/22/22 11:57 GFR Calculation 97.0 mL/min (90-130) 06/22/22 11:57 Glucose 115 mg/dL (65-115) 06/22/22 11:57 Calculated Osmolality 282 mOsm/kg (285-295) L 06/22/22 11:57 Calcium 8.4 mg/dL (8.5-10.5) L 06/22/22 11:57 Total Bilirubin 0.2 mg/dL (0.15-1.2) 06/22/22 11:57 AST 17 U/L (0-40) 06/22/22 11:57 ALT 18 U/L (0-41) 06/22/22 11:57 Alkaline Phosphatase 114 U/L (40-130) 06/22/22 11:57 Troponin T Baseline 7 ng/L (0-15) 06/22/22 11:57 NT-Pro-B Natriuret Pep 322 pg/mL (0-125) H 06/22/22 11:57 Total Protein 7.2 g/dL (6.6-8.7) 06/22/22 11:57 Albumin 3.8 g/dL (3.5-5.2) 06/22/22 11:57 Globulin 3.4 g/dL (1.3-4.6) 06/22/22 11:57 Discharge Plan Discharge Patient Disposition: Placed in Observation Clinical Impression: Atrial fibrillation and flutter Coding Level of Care Code ED Remote Operations Producer for [employer]al[employer] Exam Detailed
[2022-06-22] MEDS: metoprolol tartrate 1 mg/1 mL SDV 5 mL 5 MG IVP (11:42)
[2022-06-22] MEDS: metoprolol succinate ER (24 HR) 25 mg Tablet PO (11:42)
[2022-06-22] MEDS: aspirin 81 mg Chew Tablet 324 MG PO (11:42)
[2022-06-22 12:06] LABS: Basophils # 0.1 10^3/uL (0.0-0.1); Basophils % 0.4 %; Eosinophils # 0.3 10^3/uL (0.0-0.8); Eosinophils % 2.2 %; Hematocrit 38.7 % (42.0-52.0); Hemoglobin 12.6 g/dL (11.7-16.6); Lymphocytes # 2.9 10^3/uL (0.8-4.8); Lymphocytes % 23.9 %; Mean Corpuscular HGB Conc 32.6 g/dL (30.0-36.0); Mean Corpuscular Hemoglobin 29.2 pg (28.0-34.0); Mean Corpuscular Volume 89.8 fl (80-94); Mean Platelet Volume 9.6 fL (7.4-10.4); Monocytes # 0.8 10^3/uL (0.2-0.9); Monocytes % 6.5 %; Neutrophils # 7.99 10^3/uL (1.8-7.7); Neutrophils % 66.3 %; Nucleated Red Blood Cells % 0 %; Platelet Count 283 10^3/cmm (130-400); Red Blood Count 4.31 10^6/uL (4.1-5.3); Red Cell Distribution Width 13.2 % (12.1-15.1)
[2022-06-22 12:31] LABS: Troponin(5th) Baseline 7 ng/L (0-15)
[2022-06-22 12:40] LABS: Alanine Aminotransferase 18 U/L (0-41); Albumin Level 3.8 g/dL (3.5-5.2); Alkaline Phosphatase 114 U/L (40-130); Anion Gap 13.2 (5-19); Aspartate Amino Transferase 17 U/L (0-40); Blood Urea Nitrogen 17 mg/dL (8-23); Calcium 8.4 mg/dL (8.5-10.5); Carbon Dioxide 25 mmol/L (22-29); Chloride 101 mmol/L (98-107); Globulin 3.4 g/dL (1.3-4.6); Glucose 115 mg/dL (65-115); NT Pro B Type Natriuretic Pept 322 pg/mL (0-125); Osmolality Calculated 282 mOsm/kg (285-295); Potassium 4.2 mmol/L (3.5-5.1); Sodium 135 mmol/L (136-145); Total Bilirubin 0.2 mg/dL (0.15-1.2); Total Protein 7.2 g/dL (6.6-8.7)
--- NOTE | 2022-06-22 12:56 | ECG_ITS ---
[facility] Test Date: 2022-06-22 Pat Name: Dennis Velez Department: Room: Gender: Male Certified Alcohol Counselor: : 1955 Requested By: Octavio Montero Order Number: [id number] Doretha MD: Ida Segal M.D. Measurements Intervals [place] Rate: 88 P: 0 SD: 0 QRS: 45 QRSD: 85 T: 37 QT: 371 QTc: 450 Interpretive Statements ATRIAL FLUTTER/TACHYCARDIA NONSPECIFIC T-WAVE ABNORMALITY ABNORMAL RHYTHM ECG Compared to ECG 06/22/2022 11:03:29 No significant changes Electronically Signed On 06-22-2022 20:37:27 OIL DISPATCHER by Ida Segal M.D. [email or web address]
[2022-06-22 14:21] LABS: Add Urine Microscopic? NO; Charge for UA Resulting for Rev
[2022-06-22 14:30] LABS: Troponin 5 2HR 6.87 ng/L (0-15)
[2022-06-22 14:31] LABS: Protein Urine Neg (Negative); Urine Appearance Clear (CLEAR); Urine Color Yellow (Yellow); pH Urine 5 (5-7)
[2022-06-22 14:32] LABS: Bilirubin Urine Neg (Negative); Blood Urine Neg (Negative); Glucose Urine UA 1+ (Normal); Ketones Urine Negative (Negative); Leukocyte Esterase Urine Negative (Negative); Nitrate Urine Negative (Negative); Urobilinogen Urine Neg (Negative)
[2022-06-22 15:10] LABS: Troponin 5 2HR Delta -0.13 ABS# (0-10)
--- NOTE | 2022-06-22 15:14 | P.HP_ITS ---
Providers/Chief Complaint Admitting Physician: Kae Casey MD Primary Care Provider: Lia Pennington MD Chief Complaint: AFIB W/RVR History of Present Illness Dennis Velez is a 67 year old male who presented to the emergency room with chief complaint of abnormal heart rhythm. Patient was seen this morning at Dr. Lia Pennington office for routine 3-month follow-up. He was found to be tachycardic and on EKG noted to have atrial fibrillation with rapid ventricular response. This was new onset for Mr. Velez. Patient was sent to the emergency room from clinic for further evaluation and treatment. In talking with him and his did not feel quite like himself this morning. He describes himself as dragging . He had a funny feeling . No complaints of chest pain today but he has been having chest pain intermittently over the last few days. It is a pain located over the left side of the chest that feels like somebody beating his chest wall with a fist. Generally will last about an hour. Resting sometimes helps if he has been up and about and pain medication also helps. He has chronic back pain as well. His reports that he has been nauseated a little bit over the last few days but no vomiting. He has had increased shortness of breath and a mild cough primarily nonproductive. No reports of any fever. Some runny nose. He is a former smoker who quit back in 2011. No known pulmonary disease. He has a history of hypertension and hyperlipidemia as well as diabetes. Also has sleep apnea. He wears BiPAP nightly and is compliant with it. Upon arrival to the emergency room patient was noted to be in atrial fibrillation with heart rate into the 140s. He received some IV metoprolol with improvement. He is being admitted for further evaluation and treatment in the setting of new onset atrial fibrillation. Patient was not aware that his heart rate was elevated but again he had not been feeling quite like himself. He denies significant orthopnea, PND or lower extremity edema. He has gained weight over time. Currently complaining of back pain and some anxiety having not had his usual medications. Review of Systems Const: Denies: fever(s) or chills Card: Reports: chest pain, irregular heart rhythm, lightheadedness and dyspnea on exertion; Denies: palpitations, edema, syncope or orthopnea Resp: Reports: dyspnea and non-productive cough; Denies: wheezing, pain on inspiration or hemoptysis GI: Reports: nausea, diarrhea and constipation; Denies: vomiting : Reports: difficulty starting urination (Enlarged prostate) Musc: Reports: back pain and extremity pain Skin/Breast: Reports: sores (Slow healing sores to arms and other places) Stephen/Lymph: Denies: easy bruising or easy bleeding Medications/Allergies Home Medications Medication Instructions Recorded Confirmed Last Taken Type blood-glucose meter #1 ea 10/03/19 06/22/22 Unknown Rx miscellaneous medical supply See Rx Instructions miscellaneous 12/10/20 06/22/22 Unknown Rx .COMPLEX #1 ea blood sugar diagnostic #100 ea 10/06/21 06/22/22 Unknown Rx lancets (OneTouch UltraSoft ##100 10/06/21 06/22/22 Unknown Rx Lancets) pen needle, diabetic 33 gauge x #100 ea 10/06/21 06/22/22 Unknown Rx 1/4 (Comfort EZ Pen [place]) albuterol sulfate 90 mcg/actuation 2 puff inhalation Q6H PRN 03/08/22 06/22/22 Unknown Rx aerosol inhaler shortness of breath or wheezing #8.5 grams gabapentin 300 mg capsule 300 mg PO TID 30 days #90 caps 03/25/22 06/22/22 06/22/22 Rx hydrocodone 5 mg-acetaminophen 325 1 tab PO DAILY PRN pain 30 days 03/25/22 06/22/22 Unknown Rx mg tablet #30 tabs aspirin 81 mg tablet,delayed 81 mg PO BEDTIME 04/16/22 06/22/22 06/21/22 History release (Adult Low Dose Aspirin) atenolol 25 mg tablet 25 mg PO QAM 06/22/22 06/22/22 06/22/22 History atorvastatin 20 mg tablet 20 mg PO QAM 06/22/22 06/22/22 06/22/22 History bupropion HCl 300 mg 24 hr tablet, 300 mg PO QAM 06/22/22 06/22/22 06/22/22 History extended release cetirizine 10 mg tablet 10 mg PO QAM 06/22/22 06/22/22 06/22/22 History cyclobenzaprine 10 mg tablet 10 mg PO TID 06/22/22 06/22/22 06/22/22 History doxazosin 4 mg tablet 4 mg PO QAM 06/22/22 06/22/22 06/22/22 History glipizide 10 mg tablet 10 mg PO BID 06/22/22 06/22/22 06/22/22 History hydroxyzine pamoate 25 mg capsule 50 mg PO TID 06/22/22 06/22/22 06/22/22 History (Vistaril) ibuprofen 800 mg tablet 800 mg PO BID 06/22/22 06/22/22 06/22/22 History insulin aspart U-100 100 unit/mL 65 unit SUBCUT TID 06/22/22 06/22/22 06/21/22 History (3 mL) subcutaneous pen (Novolog Flexpen U-100 Insulin aspart) insulin degludec 200 unit/mL (3 85 unit SUBCUT BID 06/22/22 06/22/22 06/21/22 History mL) subcutaneous pen (Tresiba FlexTouch U-200 insulin) lisinopril 10 mg tablet 10 mg PO QAM 06/22/22 06/22/22 06/22/22 History omeprazole 40 mg capsule,delayed 40 mg PO QAM 06/22/22 06/22/22 06/22/22 History release trazodone 100 mg tablet 200 mg PO BEDTIME 06/22/22 06/22/22 06/21/22 History Allergies Allergy/AdvReac Type Severity Reaction Status Date / Time codeine Allergy Unknown Unknown Verified 06/22/22 12:13 Penicillins Allergy Unknown unknown Verified 06/22/22 12:13 PFSH Acute PFSH: Medical History (Updated 06/22/22 @ 20:43 by Kae Casey MD) BPH (benign prostatic hyperplasia) (~06/2020) Chronic back pain Chronic pain of both shoulders Dyslipidemia Generalized anxiety disorder GERD (gastroesophageal reflux disease) Hypertension Major depressive disorder, recurrent, moderate Psychiatric care Seasonal allergies Sleep apnea Type 2 diabetes mellitus Surgical History (Updated 06/22/22 @ 20:22 by Kae Casey MD) H/O circumcision H/O shoulder surgery right for rotator cuff repair H/O wrist surgery right History of appendectomy (~1975) History of colonoscopy Family History (Updated 06/22/22 @ 20:22 by Kae Casey MD) Mother Diabetes Grandmother Heart disease Father Stroke Social History (Updated 06/22/22 @ 20:23 by Kae Casey MD) Smoking and tobacco status: former smoker Quit status (tobacco): has quit using tobacco Year quit tobacco: 2011 Second hand smoke exposure: No Alcohol intake: never Substance/Drug Use: never Caregiver/support person: Yes Lives independently: No Household members: spouse Sexually active: Yes Current gender identity: Male Vitals/I&O/Wt Last Vital Signs Temp 98.1 F 06/22/22 10:49 Pulse 94 06/22/22 14:50 Resp 17 06/22/22 14:50 BP 115/95 06/22/22 14:50 Pulse Ox 94 06/22/22 14:50 O2 Del Method 06/22/22 10:58 Weight last 48 hrs Weight 146.057 kg Physical Exam Narrative: Patient is awake and alert, able to provide history though defers to his to answer a lot of questions. He is oriented to person place and situation. Normocephalic, nasopharynx is clear, oropharynx is clear with moist mucous membranes. Neck is large but supple. Lungs are clear to auscultation bilaterally without any rales rhonchi or wheezes. No accessory muscle use. Irregularly irregular rhythm, no murmurs. Abdomen is soft, rotund, positive bowel sounds. No pitting edema to the distal extremities. Several scabbed sores in different stages of healing to both upper arms. Dry thickened skin to the distal lower extremities. No calf tenderness. Data 06/22/22 11:57 06/22/22 11:57 Other Labs: Radiology Impressions Chest X-Ray 06/22/22 10:57 IMPRESSION: Minimal bibasilar atelectasis. Pneumonia should be excluded clinically. Laboratory Results WBC 12.0 10^3/uL (4.0-10.0) H 06/22/22 11:57 RBC 4.31 10^6/uL (4.1-5.3) 06/22/22 11:57 Hgb 12.6 g/dL (11.7-16.6) 06/22/22 11:57 Hct 38.7 % (42.0-52.0) L 06/22/22 11:57 MCV 89.8 fl (80-94) 06/22/22 11:57 MCH 29.2 pg (28.0-34.0) 06/22/22 11:57 MCHC 32.6 g/dL (30.0-36.0) 06/22/22 11:57 RDW 13.2 % (12.1-15.1) 06/22/22 11:57 Plt Count 283 10^3/cmm (130-400) 06/22/22 11:57 MPV 9.6 fL (7.4-10.4) 06/22/22 11:57 Neut % (Auto) 66.3 % 06/22/22 11:57 Lymph % (Auto) 23.9 % 06/22/22 11:57 [place] % (Auto) 6.5 % 06/22/22 11:57 Eos % (Auto) 2.2 % 06/22/22 11:57 Baso % (Auto) 0.4 % 06/22/22 11:57 Neut # (Auto) 7.99 10^3/uL (1.8-7.7) H 06/22/22 11:57 Lymph # (Auto) 2.9 10^3/uL (0.8-4.8) 06/22/22 11:57 [place] # (Auto) 0.8 10^3/uL (0.2-0.9) 06/22/22 11:57 Eos # (Auto) 0.3 10^3/uL (0.0-0.8) 06/22/22 11:57 Baso # (Auto) 0.1 10^3/uL (0.0-0.1) 06/22/22 11:57 Nucleated RBC % (auto) 0 % 06/22/22 11:57 Nucleated RBCs # 0.0 /100WBC 06/22/22 11:57 Sodium 135 mmol/L (136-145) L 06/22/22 11:57 Potassium 4.2 mmol/L (3.5-5.1) 06/22/22 11:57 Chloride 101 mmol/L (98-107) 06/22/22 11:57 Carbon Dioxide 25 mmol/L (22-29) 06/22/22 11:57 Anion Gap 13.2 (5-19) 06/22/22 11:57 BUN 17 mg/dL (8-23) 06/22/22 11:57 Creatinine 0.8 mg/dL (0.7-1.2) 06/22/22 11:57 GFR Calculation 97.0 mL/min (90-130) 06/22/22 11:57 Glucose 115 mg/dL (65-115) 06/22/22 11:57 Calculated Osmolality 282 mOsm/kg (285-295) L 06/22/22 11:57 Calcium 8.4 mg/dL (8.5-10.5) L 06/22/22 11:57 Total Bilirubin 0.2 mg/dL (0.15-1.2) 06/22/22 11:57 AST 17 U/L (0-40) 06/22/22 11:57 ALT 18 U/L (0-41) 06/22/22 11:57 Alkaline Phosphatase 114 U/L (40-130) 06/22/22 11:57 Troponin T Baseline 7 ng/L (0-15) 06/22/22 11:57 Troponin T 120 Minute 6.87 ng/L (0-15) 06/22/22 14:04 Delta Troponin T -0.13 ABS# (0-10) L 06/22/22 14:04 NT-Pro-B Natriuret Pep 322 pg/mL (0-125) H 06/22/22 11:57 Total Protein 7.2 g/dL (6.6-8.7) 06/22/22 11:57 Albumin 3.8 g/dL (3.5-5.2) 06/22/22 11:57 Globulin 3.4 g/dL (1.3-4.6) 06/22/22 11:57 Urine Color Yellow (Yellow) 06/22/22 14:08 Urine Appearance Clear (CLEAR) 06/22/22 14:08 Urine pH 5 (5-7) 06/22/22 14:08 Ur Specific [place] 1.020 (1.005-1.030) 06/22/22 14:08 Urine Protein Neg (Negative) 06/22/22 14:08 Urine Glucose (UA) 1+ (Normal) H 06/22/22 14:08 Urine Ketones Negative (Negative) 06/22/22 14:08 Urine Blood Neg (Negative) 06/22/22 14:08 Urine Nitrate Negative (Negative) 06/22/22 14:08 Urine Bilirubin Neg (Negative) 06/22/22 14:08 Urine Urobilinogen Neg mg/dL (Negative) 06/22/22 14:08 Ur Leukocyte Esterase Negative (Negative) 06/22/22 14:08 A&P Assessment and plan (1) Atrial flutter with rapid ventricular response: New finding though probably onset sometime within the last few weeks to months given description of intermittent issues that are likely symptoms related to ta chycardia. Exact time of onset unknown. (2) Chest pain: Precordial pain occurring at rest and with exertion that has both typical and atypical features for ischemia. Not pleuritic in nature. Not requiring oxygen. Patient has multiple risk factors for coronary artery disease. May be secondary or related to above or separate process. (3) Hypertension: Chronically has been on atenolol 25 mg daily and lisinopril 10 mg daily and appears to have good control. Qualifiers: Hypertension type: essential hypertension Qualified Code(s): I10 - Essential (primary) hypertension (4) Dyslipidemia: Chronically on atorvastatin (5) HIEN treated with BiPAP: Uses BiPAP nightly, unsure of settings, no oxygen requirement (6) Type 2 diabetes mellitus: Chronically on Tresiba twice a day and NovoLog with meals. Also continues to be on glipizide. Qualifiers: Diabetes mellitus termite exterminator helper insulin use: with termite exterminator helper use Diabetes mellitus complication status: with neurologic complications Diabetes mellitus complication detail: with polyneuropathy Qualified Code(s): E11.42 - Type 2 diabetes mellitus with diabetic polyneuropathy; Z79.4 - intermodal owner operator truck driver (current) use of insulin (7) GERD (gastroesophageal reflux disease): Chronically on omeprazole Qualifiers: Esophagitis presence: without esophagitis Qualified Code(s): K21.9 - Gastro-esophageal reflux disease without esophagitis (8) Chronic back pain: Chronically on hydrocodone, ibuprofen, cyclobenzaprine and gabapentin Qualifiers: Back pain location: low back pain Back pain laterality: bilateral Sciatica presence: without sciatica Qualified Code(s): M54.5 - Low back pain; G89.29 - Other chronic pain (9) Generalized anxiety disorder: Chronically on hydroxyzine along with bupropion and trazodone for anxiety and depression (10) BMI 45.0-49.9, adult: Plan Benign prostatic hypertrophy chronically on doxazosin Leukocytosis and bibasilar atelectasis on chest x-ray, low suspicion for pneumonia based on current examination Observation admission Telemetry monitoring Serial cardiac enzymes Echocardiogram Adjust beta-tom coverage for rate control versus initiation of other agents Check baseline coagulation studies Bacilio currently with plan to change to direct oral anticoagulant at discharge, reviewed benefits of anticoagulation primarily reducing risk of stroke as well as risk of bleeding with patient and his Continue home lisinopril and statin therapy Continue aspirin therapy BiPAP with sleep Lantus and lispro insulin in the hospital Currently holding glipizide Continue home PPI Continue home pain medications with the exception of stopping scheduled ibuprofen. With planned initiation of anticoagulation will need to consider alternative pain management options that do not contribute to bleeding risk. Continue home hydroxyzine, bupropion and trazodone along with gabapentin Continue home doxazosin Monitor for any symptoms suggesting acute pulmonary infection Repeat laboratory studies in the morning along with TSH and magnesium levels Otherwise Findings, concerns and plans were discussed with patient and his and both were given an opportunity to ask questions Anticipate discharge home with outpatient follow-up to primary care provider. If abnormalities noted on cardiac evaluation may also benefit from cardiology follow-up. Full code Attestations 2 Medical Necessity Statement*: Anticipated stay less than 2 midnights in this gentleman with new onset or newly identified atrial flutter/atrial fibrillation with rapid ventricular response along with chest pain as described. Plans are as indicated. He has received IV medication and continues to have further cardiac work-up and monitoring as listed. Coding Level of Care Code Acute Panelboard Assembler for [facility] Fwd Diagnoses Atrial flutter with rapid ventricular response I48.92 Chest pain R07.9 Hypertension I10 Hypertension type: essential hypertension Dyslipidemia E78.5 HIEN treated with BiPAP G47.33 Type 2 diabetes mellitus E11.42; Z79.4 Diabetes mellitus senior living insulin use: with termite exterminator helper use Diabetes mellitus complication status: with neurologic complications Diabetes mellitus complication detail: with polyneuropathy GERD (gastroesophageal reflux disease) K21.9 Esophagitis presence: without esophagitis Chronic back pain M54.5; G89.29 Back pain location: low back pain Back pain laterality: bilateral Sciatica presence: without sciatica Generalized anxiety disorder F41.1 BMI 45.0-49.9, adult Z68.42
--- NOTE | 2022-06-22 17:49 | ECG_ITS ---
[facility] Test Date: 2022-06-22 Pat Name: Dennis Velez Department: Room: [facility] Gender: Male Supervisor Publications: : 1955 Requested By: Octavio Montero Order Number: [id number] Doretha MD: Ida Segal M.D. Measurements Intervals [place] Rate: 84 P: 0 [place]: 0 QRS: 58 QRSD: 90 T: 23 QT: 372 QTc: 442 Interpretive Statements ATRIAL FLUTTER/TACHYCARDIA NONSPECIFIC T-WAVE ABNORMALITY ABNORMAL RHYTHM ECG Compared to ECG 06/22/2022 12:42:48 No significant changes Electronically Signed On 06-22-2022 20:38:34 AIR CONDITIONING TECHNICIAN by Ida Segal M.D. [id number]
[2022-06-22 18:36] LABS: Troponin 5 6HR 8.48 ng/L (0-15)
[2022-06-22 18:46] LABS: Troponin 5 6HR Delta 1.48 ng/L (0-12)
--- NOTE | 2022-06-22 20:06 | USCV_ITS ---
Dennis Velez Age: 67 Gender: M : 1955 Exam Date: 06/22/2022 21:03 Ordering Phys: Kae Casey MD Technologist: GRETEL [place] [facility] [place] first time with atrial fibrillation. No history of cardiac intervention per patient. BP: 153 / 72 HR: 97 Rhythm: Atrial fibrillation Technical Quality: difficult c/o body habitus with [employer] MEASUREMENTS (Male / Female) Normal Values 2D ECHO LV Diastolic Diameter PLAX 4.3 cm 4.2 - 5.9 / 3.9 - 5.3 cm LV Systolic Diameter PLAX 3.2 cm IVS Diastolic Thickness 1.2 cm 0.6 - 1.0 / 0.6 - 0.9 cm IVS Systolic Thickness 2.1 cm LVPW Diastolic Thickness 1.7 cm 0.6 - 1.0 / 0.6 - 0.9 cm LVPW Systolic Thickness 1.5 cm LVOT Diameter 2.4 cm LV Ejection Fraction 2D Teich 52.8 % LV Ejection Fraction MOD 2C 57.1 % LV Ejection Fraction 2C AL 58.2 % LA Diameter 3.9 cm LA Width 4.3 cm LA Height 5.8 cm RA Width 4.0 cm RA Height 4.8 cm Aorta at Sinotubular Diameter 2.7 cm IVC Diameter 2.2 cm M-MODE Aortic Annulus Diameter 3.2 cm LA Ao Ratio MM 1.3 MV E Point Septal Separation 0.4 cm DOPPLER AV Peak Velocity 162.0 cm/s LVOT Peak Velocity 94.0 cm/s AV Area Cont Eq vti 3.0 cm squared AV Area Cont Eq pk 2.6 cm squared MV Area PHT 5.1 cm squared MV E' Velocity 67.0 cm/s Mitral E to MV E' Ratio 8.7 Mitral E to LV E' Lateral Ratio 8.4 Mitral E to LV E' Septal Ratio 8.9 PV Peak Velocity 83.0 cm/s RV Acceleration Time 0.1 s RV Ejection Time 0.3 s RV AcT/ET 0.3 FINDINGS Left Ventricle Left ventricle is normal in size. LV systolic function is normal with EF of 55 to 60%. No regional wall motion abnormalities are seen. Diastolic function is indeterminate because of atrial fibrillation. Right Ventricle Normal in size and function Right Atrium Normal in size Left Atrium Normal in size Mitral Valve Structurally normal mitral valve. No significant stenosis or regurgitation seen Aortic Valve Grossly normal. No significant stenosis or regurgitation. Tricuspid Valve Trace tricuspid regurgitation. insufficient TR jet to calculate RVSP Pulmonic Valve Not well visualized Pericardium Normal Aorta Normal in size IVC Not well visualized CONCLUSIONS Technically limited quality echocardiogram because of poor ultrasonic windows. LV systolic function is normal with EF 55 to 60%. Diastolic function is indeterminate because of atrial fibrillation. Trace tricuspid regurgitation Compared to prior echocardiogram from 2016, no significant changes are seen. Tru Alcantar MD (Electronically Signed) Final Date: 23 June 2022 11:30 S
[2022-06-22 20:39] LABS: Glucose Point of Care 233 mg/dL (70-110)
[2022-06-22] MEDS: aspirin 81 mg EC Tablet PO (20:43)
[2022-06-22] MEDS: trazodone 100 mg Tablet 200 MG PO (20:43)
[2022-06-22] MEDS: metoprolol tartrate 50 mg Tablet PO (20:43)
[2022-06-22] MEDS: sodium chloride 0.45% 1,000 ML 75 ML IV (20:43)
[2022-06-22] MEDS: gabapentin 300 mg Capsule PO (20:43)
[2022-06-22] MEDS: enoxaparin 40 mg/0.4 mL Syringe SUBCUT (20:44)
[2022-06-22] MEDS: insulin lispro 100 unit/1 mL SUBCUT (20:44)
[2022-06-22] MEDS: insulin glargine 100 units/1 mL 30 UNIT SUBCUT (20:56)
[2022-06-23] VITALS (17 sets, daily range): BP systolic 97–130; BP diastolic 58–85; PULSE 64–97; RESP 12–25; TEMP 36–36.3; O2SAT 94–97
[2022-06-23] MEDS: HYDROcodone-acetaminophen 5-325 mg Tablet 1 TAB PO (00:25)
[2022-06-23 04:21] LABS: Basophils # 0.1 10^3/uL (0.0-0.1); Basophils % 0.5 %; Eosinophils # 0.2 10^3/uL (0.0-0.8); Eosinophils % 2.2 %; Hematocrit 37.5 % (42.0-52.0); Lymphocytes # 3.4 10^3/uL (0.8-4.8); Lymphocytes % 34.4 %; Mean Corpuscular Hemoglobin 29.1 pg (28.0-34.0); Mean Corpuscular Volume 90.8 fl (80-94); Mean Platelet Volume 10.3 fL (7.4-10.4); Monocytes # 0.7 10^3/uL (0.2-0.9); Monocytes % 6.9 %; Neutrophils # 5.51 10^3/uL (1.8-7.7); Neutrophils % 55.2 %; Nucleated Red Blood Cells % 0 %; Platelet Count 267 10^3/cmm (130-400); Red Blood Count 4.13 10^6/uL (4.1-5.3); Red Cell Distribution Width 13.5 % (12.1-15.1)
[2022-06-23 04:28] LABS: INR 1.03 (0.8-1.2)
[2022-06-23 04:29] LABS: Partial Thromboplastin Time 25.7 SECONDS (23.9-36.7)
[2022-06-23 04:39] LABS: Anion Gap 14.5 (5-19); Blood Urea Nitrogen 18 mg/dL (8-23); Calcium 8.6 mg/dL (8.5-10.5); Carbon Dioxide 26 mmol/L (22-29); Chloride 103 mmol/L (98-107); Glucose 254 mg/dL (65-115); Magnesium 1.8 mg/dL (1.7-2.3); Osmolality Calculated 299 mOsm/kg (285-295); Potassium 4.5 mmol/L (3.5-5.1); Sodium 139 mmol/L (136-145)
[2022-06-23 04:40] LABS: Alanine Aminotransferase 15 U/L (0-41); Albumin Level 3.6 g/dL (3.5-5.2); Alkaline Phosphatase 101 U/L (40-130); Anion Gap 13.6 (5-19); Aspartate Amino Transferase 15 U/L (0-40); Blood Urea Nitrogen 19 mg/dL (8-23); Calcium 8.3 mg/dL (8.5-10.5); Carbon Dioxide 26 mmol/L (22-29); Chloride 105 mmol/L (98-107); Globulin 3.2 g/dL (1.3-4.6); Glucose 259 mg/dL (65-115); Osmolality Calculated 301 mOsm/kg (285-295); Potassium 4.6 mmol/L (3.5-5.1); Sodium 140 mmol/L (136-145); Total Bilirubin 0.2 mg/dL (0.15-1.2); Total Protein 6.8 g/dL (6.6-8.7)
[2022-06-23 04:52] LABS: Procalcitonin 0.03 ng/mL (0-0.5)
[2022-06-23] MEDS: lisinopril 10 mg Tablet PO (05:25)
[2022-06-23] MEDS: cetirizine 10 mg Tablet PO (05:25)
[2022-06-23] MEDS: atorvastatin 40 mg Tablet 20 MG PO (05:25)
[2022-06-23] MEDS: buPROPion XL (24 HR) 300 mg Tablet PO (05:25)
[2022-06-23] MEDS: doxazosin 4 mg Tablet PO (05:25)
[2022-06-23] MEDS: perflutren protein-a microsphr 0.22 mg/mL SDV 3 mL IV (06:03)
[2022-06-23 07:30] LABS: Glucose Point of Care 241 mg/dL (70-110)
[2022-06-23] MEDS: pantoprazole DR 40 mg Tablet PO (08:28)
[2022-06-23] MEDS: gabapentin 300 mg Capsule PO (08:28)
[2022-06-23] MEDS: metoprolol tartrate 50 mg Tablet PO (08:28)
[2022-06-23] MEDS: insulin lispro 100 unit/1 mL SUBCUT (08:29)
[2022-06-23] MEDS: insulin glargine 100 units/1 mL 30 UNIT SUBCUT (09:55)
--- NOTE | 2022-06-23 10:30 | PC.CHAP ---
Pastoral Care Encounter/Spiritual Assessment Type of Contact [] Declined hospice case manager visit [] Patient/Family/Request visit [] Outpatient visit [] Follow-up visit [] Physician referral [] Code/Alert [x] Routine visit [] Staff referral [] Actively dying [] Patient sleeping [x] Family support [] [] Out of room [] Palliative care [] [] Receiving care in room [] Pre-surgical visit [] Trauma [] Long length of stay [x] ICU visit [x] Other: feeling better than yesterday... looking for some good sleep Relational/Emotional Strength [] Patient feels connected with others/family/visitors/staff [] Distress [] Loneliness/isolation [] Abandonment Spirituality of Patient [] Person of Yolanda [] Attends Shinto of their Yolanda [] Believes in Prayer [] Reads Bible or Anglican materials [] There are Spiritual issues to be addressed Gymnastics Coach Or Instructor Interventions [x] Prayer [] Active listening [] Non-anxious presence [] Spiritual/emotional support [] Crisis/trauma care [] Spiritual counseling [] Bereavement support [] Provided bereavement packet [] Provided Bible/devotional materials [] Provided toy/stuffed animal, coloring book to patient or family member [] Provided Communion [] Anointing/[place] [] Salvation [x] Completed spiritual assessment [] Other: Impact on Illness or Injury [] Angry [] Fearful [] Anxious [] Often cries [] Exhaustion [] Unable to work [] Unable to attend congregation [] Unable to walk/stand [] Unable to read [] Unable to drive [] Unable to eat/drink [] Unable to sleep [] Unable to be with family [] Patient intubated [] Other: Summary Time spent with patient
[2022-06-23 12:01] LABS: Glucose Point of Care 226 mg/dL (70-110)
--- NOTE | 2022-06-23 12:48 | PM.DCS ---
Discharge Providers Date of Admission: 06/22/22 17:41 Date of Discharge: June 23, 2022 Attending Provider at Admission: Kae Casey MD Attending Provider at Discharge: Laura Johsn MD Primary Care Provider: Lia Pennington MD Diagnoses at Discharge Discharge Diagnosis (1) Atrial flutter with rapid ventricular response: Status: Acute (2) Chest pain: Status: Acute (3) Hypertension: Status: Chronic Qualifiers: Hypertension type: essential hypertension Qualified Code(s): I10 - Essential (primary) hypertension (4) Dyslipidemia: Status: Chronic (5) HIEN treated with BiPAP: Status: Acute (6) Type 2 diabetes mellitus: Status: Chronic Qualifiers: Diabetes mellitus retirement insulin use: with retirement use Diabetes mellitus complication status: with neurologic complications Diabetes mellitus complication detail: with polyneuropathy Qualified Code(s): E11.42 - Type 2 diabetes mellitus with diabetic polyneuropathy; Z79.4 - intermediate teacher (current) use of insulin (7) GERD (gastroesophageal reflux disease): Status: Chronic Qualifiers: Esophagitis presence: without esophagitis Qualified Code(s): K21.9 - Gastro-esophageal reflux disease without esophagitis (8) Chronic back pain: Status: Chronic Qualifiers: Back pain location: low back pain Back pain laterality: bilateral Sciatica presence: without sciatica Qualified Code(s): M54.5 - Low back pain; G89.29 - Other chronic pain (9) Generalized anxiety disorder: Status: Chronic (10) BMI 45.0-49.9, adult: Status: Acute Reason for Visit Reason for Visit: AFIB W/RVR Hospital Course Hospital Course Patient is a 67-year-old male with a past medical history of hypertension, diabetes mellitus, who presented to the hospital on June 22, 2022 with palpitation and was found to have new onset A. fib with RVR. Review of systems was negative for any orthopnea PND or lower extremity edema. Heart rate upon presentation was 1 30-1 40, improved with beta-blockers. EKG did not show any signs of acute ST-T wave changes. Troponin series was negative for ACS. Overnight on telemetry he remained in controlled A. fib with heart rate ranging between 80 to 100 bpm. Echocardiogram was performed which showed LV systolic function of 55 to 60%, diastolic function unable to be determined, trace tricuspid regurgitation, no significant changes overall compared to 2016. At home patient typically takes atenolol, we will discontinue this and change him over to metoprolol 50 mg twice daily instead. Instructed to maintain a chart of his heart rate and blood pressure. Also started on anticoagulation with Eliquis 5 mg twice daily at the time of discharge for stroke prevention. Physical Exam Narrative: General: No acute distress, AO x3 HEENT: PERRLA, pupils bilaterally equal and reactive, pallors not present Chest: Normal vesicular breath sounds, no added sounds, equal good air entry bilaterally CVS: S1-S2 regular, no murmurs, no tachycardia, no gallops, no rubs Abdomen: Soft, nontender, no organomegaly, bowel sounds present Neuro: No focal deficits, no facial deformity, AO x3, power 5/5 in all limbs Discharge Data Studies Completed and Pending Completed Studies During Hospitalization Category Date Time Status XR chest 1V portable [id number] Stat Exams 06/22/22 10:57 Completed CV. echo wo/w contrast [id number] Routine Ultrasound 06/22/22 20:06 Completed Radiology Impressions Chest X-Ray 06/22/22 10:57 IMPRESSION: Minimal bibasilar atelectasis. Pneumonia should be excluded clinically. Laboratory Results WBC 10.0 10^3/uL (4.0-10.0) 06/23/22 03:41 RBC 4.13 10^6/uL (4.1-5.3) 06/23/22 03:41 Hgb 12.0 g/dL (11.7-16.6) 06/23/22 03:41 Hct 37.5 % (42.0-52.0) L 06/23/22 03:41 MCV 90.8 fl (80-94) 06/23/22 03:41 MCH 29.1 pg (28.0-34.0) 06/23/22 03:41 MCHC 32.0 g/dL (30.0-36.0) 06/23/22 03:41 RDW 13.5 % (12.1-15.1) 06/23/22 03:41 Plt Count 267 10^3/cmm (130-400) 06/23/22 03:41 MPV 10.3 fL (7.4-10.4) 06/23/22 03:41 Neut % (Auto) 55.2 % 06/23/22 03:41 Lymph % (Auto) 34.4 % 06/23/22 03:41 [place] % (Auto) 6.9 % 06/23/22 03:41 Eos % (Auto) 2.2 % 06/23/22 03:41 Baso % (Auto) 0.5 % 06/23/22 03:41 Neut # (Auto) 5.51 10^3/uL (1.8-7.7) 06/23/22 03:41 Lymph # (Auto) 3.4 10^3/uL (0.8-4.8) 06/23/22 03:41 [place] # (Auto) 0.7 10^3/uL (0.2-0.9) 06/23/22 03:41 Eos # (Auto) 0.2 10^3/uL (0.0-0.8) 06/23/22 03:41 Baso # (Auto) 0.1 10^3/uL (0.0-0.1) 06/23/22 03:41 Nucleated RBC % (auto) 0 % 06/23/22 03:41 Nucleated RBCs # 0.0 /100WBC 06/23/22 03:41 PT 13.80 SECONDS (12.1-14.9) 06/23/22 03:41 INR 1.03 (0.8-1.2) 06/23/22 03:41 APTT 25.7 SECONDS (23.9-36.7) 06/23/22 03:41 Sodium 139 mmol/L (136-145) 06/23/22 03:41 Sodium 140 mmol/L (136-145) 06/23/22 03:41 Potassium 4.5 mmol/L (3.5-5.1) 06/23/22 03:41 Potassium 4.6 mmol/L (3.5-5.1) 06/23/22 03:41 Chloride 103 mmol/L (98-107) 06/23/22 03:41 Chloride 105 mmol/L (98-107) 06/23/22 03:41 Carbon Dioxide 26 mmol/L (22-29) 06/23/22 03:41 Carbon Dioxide 26 mmol/L (22-29) 06/23/22 03:41 Anion Gap 13.6 (5-19) 06/23/22 03:41 Anion Gap 14.5 (5-19) 06/23/22 03:41 BUN 18 mg/dL (8-23) 06/23/22 03:41 BUN 19 mg/dL (8-23) 06/23/22 03:41 Creatinine 0.8 mg/dL (0.7-1.2) 06/23/22 03:41 Creatinine 0.8 mg/dL (0.7-1.2) 06/23/22 03:41 GFR Calculation 97.0 mL/min (90-130) 06/23/22 03:41 GFR Calculation 97.0 mL/min (90-130) 06/23/22 03:41 Glucose 254 mg/dL (65-115) H 06/23/22 03:41 Glucose 259 mg/dL (65-115) H 06/23/22 03:41 POC Glucose 226 mg/dL (70-110) H 06/23/22 11:57 Calculated Osmolality 299 mOsm/kg (285-295) H 06/23/22 03:41 Calculated Osmolality 301 mOsm/kg (285-295) H 06/23/22 03:41 Calcium 8.3 mg/dL (8.5-10.5) L 06/23/22 03:41 Calcium 8.6 mg/dL (8.5-10.5) 06/23/22 03:41 Magnesium 1.8 mg/dL (1.7-2.3) 06/23/22 03:41 Total Bilirubin 0.2 mg/dL (0.15-1.2) 06/23/22 03:41 AST 15 U/L (0-40) 06/23/22 03:41 ALT 15 U/L (0-41) 06/23/22 03:41 Alkaline Phosphatase 101 U/L (40-130) 06/23/22 03:41 Troponin T Baseline 7 ng/L (0-15) 06/22/22 11:57 Troponin T 120 Minute 6.87 ng/L (0-15) 06/22/22 14:04 Delta Troponin T -0.13 ABS# (0-10) L 06/22/22 14:04 Troponin T Hi Sens 6Hr 8.48 ng/L (0-15) 06/22/22 18:05 Troponin T Hi Sens 6Hr Delta 1.48 ng/L (0-12) 06/22/22 18:05 NT-Pro-B Natriuret Pep 322 pg/mL (0-125) H 06/22/22 11:57 Total Protein 6.8 g/dL (6.6-8.7) 06/23/22 03:41 Albumin 3.6 g/dL (3.5-5.2) 06/23/22 03:41 Globulin 3.2 g/dL (1.3-4.6) 06/23/22 03:41 Procalcitonin 0.03 ng/mL (0-0.5) 06/23/22 03:41 TSH 2.10 uIU/mL (0.27-4.20) 06/23/22 03:41 Urine Color Yellow (Yellow) 06/22/22 14:08 Urine Appearance Clear (CLEAR) 06/22/22 14:08 Urine pH 5 (5-7) 06/22/22 14:08 Ur Specific [place] 1.020 (1.005-1.030) 06/22/22 14:08 Urine Protein Neg (Negative) 06/22/22 14:08 Urine Glucose (UA) 1+ (Normal) H 06/22/22 14:08 Urine Ketones Negative (Negative) 06/22/22 14:08 Urine Blood Neg (Negative) 06/22/22 14:08 Urine Nitrate Negative (Negative) 06/22/22 14:08 Urine Bilirubin Neg (Negative) 06/22/22 14:08 Urine Urobilinogen Neg mg/dL (Negative) 06/22/22 14:08 Ur Leukocyte Esterase Negative (Negative) 06/22/22 14:08 Vitals Last Vital Signs Temp 97.3 F L 06/23/22 04:00 Pulse 66 06/23/22 11:00 Resp 20 H 06/23/22 11:00 BP 116/80 06/23/22 11:00 Pulse Ox 94 06/23/22 11:00 O2 Del Method 06/23/22 08:25 FiO2 21 06/23/22 00:00 Discharge Plan Discharge Patient Disposition: Home Condition: Stable Prescriptions: New metoprolol tartrate 50 mg Tablet 50 mg PO BID@0900,2100 30 Days Qty: 60 0RF Eliquis 5 mg tablet 5 mg PO BID 30 Days Qty: 60 0RF Continued (DME) blood-glucose meter Misc See Rx Instructions .ROUTE .MEDSUPPLY Qty: 1 0RF Rx Instructions: ONE TOUCH ULTRA METER (DME) lancets [OneTouch UltraSoft Lancets] Misc See Rx Instructions .ROUTE .COMPLEX Qty: 100 11RF Dose Instruction: CHECK BLOOD SUGAR 4 TIMES DAILY ULTRASOFT LANCETS Rx Instructions: CHECK BLOOD SUGAR 4 TIMES DAILY ULTRASOFT LANCETS (DME) blood sugar diagnostic Strip See Rx Instructions .ROUTE .MEDSUPPLY Qty: 100 12RF Rx Instructions: use three times daily (DME) Comfort EZ Pen [place] 33 gauge x 1/4 needle See Rx Instructions .ROUTE .MEDSUPPLY Qty: 100 11RF Rx Instructions: As directed aspirin [Adult Low Dose Aspirin] 81 mg tablet,delayed release (DR/EC) 81 mg PO BEDTIME albuterol sulfate 90 mcg/actuation HFA aerosol inhaler 2 puff inhalation Q6H PRN (Reason: shortness of breath or wheezing) Qty: 8.5 0RF hydrocodone-acetaminophen 5-325 mg tablet 1 tab PO DAILY PRN (Reason: pain) 30 Days Qty: 30 0RF gabapentin 300 mg capsule 300 mg PO TID 30 Days Qty: 90 2RF miscellaneous medical supply Misc See Rx Instructions miscellaneous .COMPLEX Qty: 1 5RF Rx Instructions: BiPAP supplies, mask and tubing etc. miscellaneous; cyclobenzaprine 10 mg tablet 10 mg PO TID atorvastatin 20 mg tablet 20 mg PO QAM Rx Instructions: 340B cetirizine 10 mg tablet 10 mg PO QAM ibuprofen 800 mg tablet 800 mg PO BID glipizide 10 mg tablet 10 mg PO BID omeprazole 40 mg capsule,delayed release(DR/EC) 40 mg PO QAM trazodone 100 mg tablet 200 mg PO BEDTIME lisinopril 10 mg tablet 10 mg PO QAM Rx Instructions: 340B doxazosin 4 mg tablet 4 mg PO QAM Vistaril 25 mg capsule 50 mg PO TID Novolog Flexpen U-100 Insulin 100 unit/mL (3 mL) insulin pen 65 unit SUBCUT TID bupropion HCl 300 mg tablet extended release 24 hr 300 mg PO QAM Tresiba FlexTouch U-200 200 unit/mL (3 mL) insulin pen 85 unit SUBCUT BID Discontinued atenolol 25 mg tablet 25 mg PO QAM Discharge Orders: Discharge Order (Routine); Ordered 06/23/22 Ordered By: Laura Johns Referrals: Lia Pennington MD [Primary Care Provider] - 7-10 days (new diagnosis of A fib) Patient Instructions: Opioid Safety Plan of Treatment: Please note that atenolol has been discontinued at discharge. Instead you have been started on metoprolol 50 mg p.o. twice daily. Discharge Attestations Time Spent in Discharge Care*: greater than 30 min Quality Metrics Clinical Quality Measures [ No reported AMI, CVA or VTE this stay] Coding Level of Care Code Acute Chg FW DC note Diagnoses Atrial flutter with rapid ventricular response I48.92 Chest pain R07.9 Hypertension I10 Hypertension type: essential hypertension Dyslipidemia E78.5 HIEN treated with BiPAP G47.33 Type 2 diabetes mellitus E11.42; Z79.4 Diabetes mellitus retirement insulin use: with retirement use Diabetes mellitus complication status: with neurologic complications Diabetes mellitus complication detail: with polyneuropathy GERD (gastroesophageal reflux disease) K21.9 Esophagitis presence: without esophagitis Chronic back pain M54.5; G89.29 Back pain location: low back pain Back pain laterality: bilateral Sciatica presence: without sciatica Generalized anxiety disorder F41.1 BMI 45.0-49.9, adult Z68.42
== END 2022-06-23 13:52 | disposition home or self-care (01) ==
LOC: ER 14:22 → ICU 17:19
PROVIDERS: Admitting Provider Hospitalist; Emergency Provider Family Medicine; PCP Family Medicine; Visit Provider Student in an Organized Health Care Education/Training Program
DX: I48.92 Unspecified atrial flutter (principal); R07.9 Chest pain, unspecified; I10 Essential (primary) hypertension; E78.5 Hyperlipidemia, unspecified; G47.33 Obstructive sleep apnea (adult) (pediatric); E11.42 Type 2 diabetes mellitus with diabetic polyneuropathy; Z79.4 Long term (current) use of insulin; K21.9 Gastro-esophageal reflux disease without esophagitis; G89.29 Other chronic pain; F41.1 Generalized anxiety disorder; Z68.42 Body mass index [BMI] 45.0-49.9, adult; N40.0 Benign prostatic hyperplasia without lower urinary tract symptoms
CPT/HCPCS: 36415; 36416; 71045; 80048; 80053; 81003; 82962; 83735; 83880; 84145; 84443; 84484; 85025; 85610; 85730; 93005; 94660; 96361; 96372; 96374; 96375; 99285; C8929; G0378; J1650; J1815; J3490; Q9956

== ENCOUNTER → 2022-07-01 09:36 | Outpatient (BNVA) | payer MEDICARE, SELFPAY | PROVIDERS: PCP Family Medicine; Visit Provider Family Medicine | DX: E78.5 Hyperlipidemia, unspecified (principal); E11.42 Type 2 diabetes mellitus with diabetic polyneuropathy | CPT/HCPCS: 80061; 83036 ==

== ENCOUNTER 2022-07-17 14:43 | Emergency (ER) | payer MEDICARE, MEDICAID, SELFPAY ==
[2022-07-17 15:01] VITALS: BP 113/61; PULSE 87; RESP 18; TEMP 36.6; O2SAT 96; BMI 48.6
--- NOTE | 2022-07-17 15:04 | ECG_ITS ---
[facility] Test Date: 2022-07-17 Pat Name: Dennis Velez Department: Room: Gender: Male Disposal Man: : 1955 Requested By: Ryan Marks Order Number: [id number] Reading MD: Tru Alcantar M.D. Measurements Intervals [place] Rate: 87 P: 0 CT: 0 QRS: 52 QRSD: 90 T: 21 QT: 402 QTc: 486 Interpretive Statements ATRIAL FIBRILLATION MODERATE T-WAVE ABNORMALITY, CONSIDER INFERIOR ISCHEMIA [-0.1+ mV T-WAVE IN II/aVF] Compared to ECG 06/22/2022 17:49:20 Possible ischemia now present T-wave abnormality still present Electronically Signed On 07-17-2022 23:26:06 [employer]NTHET[employer]ING [employer]UTTER by Tru Alcantar M.D. [email or web address]
--- NOTE | 2022-07-17 15:17 | XR_ITS ---
WS: [id number] Portable AP upright chest, 07/17/2022 Clinical Data: afib Comparison: Portable chest, 06/22/2022 Findings: No nodules, masses or effusions are seen. The heart is normal. The pulmonary vascularity is not increased. No pneumonia or pneumothorax is seen. After leads are on the chest wall. XR/XR chest 1V portable [id number] Impression: Negative chest.
--- NOTE | 2022-07-17 15:26 | W.ED.ARRPALP ---
HPI - Arrhythmia/Palpitations General: Chief Complaint: Arrhythmia/Palpitations Stated Complaint: CP/ AFIB Time Seen by Provider: 07/17/22 14:45 History of Present Illness: This 67-year-old male with a history of A. fib was sent to the ER for evaluation because of elevated heart rate. He had gone to the [facility] for a scheduled follow-up and on checking his vitals, his heart rate was 117. When they rechecked it later, it was 109. So they advised him to go to urgent care for evaluation since his heart rate was over 100. At urgent care, they checked his heart rate and it was over 100 and so they called an ambulance to bring him to the ER for evaluation. Patient is clinically stable and in no acute distress. Review of Systems Const: Denies: chills, body aches or change in appetite Eyes: Denies: change in vision or eye discharge ENMT: Denies: throat pain, dental pain or nasal discharge Card: Reports: other (Elevated heart rate); Denies: lightheadedness : Denies: dysuria Musc: Denies: neck pain or back pain Neuro: Denies: headache(s) or weakness in extremities Psych: Denies: depression Stephen/Lymph: Denies: easy bruising All/Imm: Denies: urticaria, tongue swelling or facial swelling PFSH ED PFSH: Medical History BPH (benign prostatic hyperplasia) (~06/2020) Chronic back pain Chronic pain of both shoulders Dyslipidemia Generalized anxiety disorder GERD (gastroesophageal reflux disease) Hypertension Major depressive disorder, recurrent, moderate Psychiatric care Seasonal allergies Sleep apnea Type 2 diabetes mellitus Surgical History H/O circumcision H/O shoulder surgery right for rotator cuff repair H/O wrist surgery right History of appendectomy (~1975) History of colonoscopy Family History Mother Diabetes Grandmother Heart disease Father Stroke Social History Smoking and tobacco status: former smoker Quit status (tobacco): has quit using tobacco Year quit tobacco: 2011 Second hand smoke exposure: No Alcohol intake: never Caregiver/support person: Yes Lives independently: No Household members: spouse Sexually active: Yes Current gender identity: Male Physical Exam Const: COMMON NORMALS: no acute distress, patient oriented x3, no limitations and alert OTHER: Morbidly obese HENMT: COMMON NORMALS: normocephalic HEAD & SCALP: normocephalic Eye: COMMON NORMALS: EOMs intact bilaterally Neck/C-Spine: COMMON NORMALS: full ROM and supple Chest: COMMONS NORMALS: normal inspection of the chest Resp: COMMON NORMALS: normal respiratory effort, No retractions, No use of accessory muscles and clear to auscultation bilaterally AUSCULTATION: clear to auscultation bilaterally Cardio: COMMON NORMALS: regular rate, regular rhythm and No murmurs present (Cardio) RATE: regular rate RHYTHM: regular rhythm OTHER: Tachycardia, irregular rhythm, no murmurs. GI: COMMON NORMALS: Normal to inspection, nondistended, normoactive bowel sounds present and non-tender : COMMON NORMALS: Yes no CVA tenderness BLADDER/KIDNEY EXAM: Yes no CVA tenderness Back/Pelvis: COMMON NORMALS: no CVA tenderness and no thoracic nor lumbar tenderness Extremity: GENERAL: Yes normal exam except as noted Neuro: COMMON NORMALS: patient oriented x3 and no focal motor deficits SENSORIUM/ORIENTATION: Yes alert Psych: COMMON NORMALS: mental status grossly normal and cooperative Course Vital Signs: Vital signs: Vital Signs Temperature 97.8 F 07/17/22 15:01 Pulse Rate 92 07/17/22 15:54 Respiratory Rate 22 H 07/17/22 17:23 Blood Pressure 125/66 07/17/22 15:54 Pulse Oximetry 96 07/17/22 15:54 Oxygen Delivery Me thod 07/17/22 15:54 MDM - Arrhythmia/Palpitations Medical Decision Making Medical decision making: Patient has a history of A. fib and is currently on metoprolol and Eliquis. He was sent to the ER because his heart rate was slightly over 100. However, patient is in no distress and has normal vitals. Troponin is negative. There is no indication to admit him. Since the metoprolol is controlling his heart rate adequately, he was advised to continue taking it and to follow-up with his primary care physician. Return instructions provided. Lab Data 07/17/22 15:43 07/17/22 15:43 Radiology Impressions Chest X-Ray 07/17/22 15:17 Impression: Negative chest. Laboratory Results WBC 11.0 10^3/uL (4.0-10.0) H 07/17/22 15:43 RBC 4.30 10^6/uL (4.1-5.3) 07/17/22 15:43 Hgb 12.2 g/dL (11.7-16.6) 07/17/22 15:43 Hct 38.4 % (42.0-52.0) L 07/17/22 15:43 MCV 89.3 fl (80-94) 07/17/22 15:43 MCH 28.4 pg (28.0-34.0) 07/17/22 15:43 MCHC 31.8 g/dL (30.0-36.0) 07/17/22 15:43 RDW 13.7 % (12.1-15.1) 07/17/22 15:43 Plt Count 277 10^3/cmm (130-400) 07/17/22 15:43 MPV 9.8 fL (7.4-10.4) 07/17/22 15:43 Neut % (Auto) 55.3 % 07/17/22 15:43 Lymph % (Auto) 32.9 % 07/17/22 15:43 Prentiss % (Auto) 8.4 % 07/17/22 15:43 Eos % (Auto) 2.3 % 07/17/22 15:43 Baso % (Auto) 0.5 % 07/17/22 15:43 Neut # (Auto) 6.08 10^3/uL (1.8-7.7) 07/17/22 15:43 Lymph # (Auto) 3.6 10^3/uL (0.8-4.8) 07/17/22 15:43 Prentiss # (Auto) 0.9 10^3/uL (0.2-0.9) 07/17/22 15:43 Eos # (Auto) 0.3 10^3/uL (0.0-0.8) 07/17/22 15:43 Baso # (Auto) 0.1 10^3/uL (0.0-0.1) 07/17/22 15:43 Nucleated RBC % (auto) 0 % 07/17/22 15:43 Nucleated RBCs # 0.0 /100WBC 07/17/22 15:43 Sodium 136 mmol/L (136-145) 07/17/22 15:43 Potassium 4.1 mmol/L (3.5-5.1) 07/17/22 15:43 Chloride 101 mmol/L (98-107) 07/17/22 15:43 Carbon Dioxide 26 mmol/L (22-29) 07/17/22 15:43 Anion Gap 13.1 (5-19) 07/17/22 15:43 BUN 15 mg/dL (8-23) 07/17/22 15:43 Creatinine 0.8 mg/dL (0.7-1.2) 07/17/22 15:43 GFR Calculation 97.0 mL/min (90-130) 07/17/22 15:43 Glucose 147 mg/dL (65-115) H 07/17/22 15:43 Calculated Osmolality 286 mOsm/kg (285-295) 07/17/22 15:43 Calcium 8.7 mg/dL (8.5-10.5) 07/17/22 15:43 Total Bilirubin 0.2 mg/dL (0.15-1.2) 07/17/22 15:43 AST 14 U/L (0-40) 07/17/22 15:43 ALT 15 U/L (0-41) 07/17/22 15:43 Alkaline Phosphatase 103 U/L (40-130) 07/17/22 15:43 Troponin T Baseline 7 ng/L (0-15) 07/17/22 15:43 Total Protein 6.9 g/dL (6.6-8.7) 07/17/22 15:43 Albumin 3.8 g/dL (3.5-5.2) 07/17/22 15:43 Globulin 3.1 g/dL (1.3-4.6) 07/17/22 15:43 Discharge Plan Discharge Patient Disposition: Home Clinical Impression: Atrial fibrillation with controlled ventricular rate Condition: Stable Prescriptions: No Action (DME) blood-glucose meter Misc See Rx Instructions .ROUTE .MEDSUPPLY Qty: 1 0RF Rx Instructions: ONE TOUCH ULTRA METER (DME) lancets [OneTouch UltraSoft Lancets] Misc See Rx Instructions .ROUTE .COMPLEX Qty: 100 11RF Dose Instruction: CHECK BLOOD SUGAR 4 TIMES DAILY ULTRASOFT LANCETS Rx Instructions: CHECK BLOOD SUGAR 4 TIMES DAILY ULTRASOFT LANCETS aspirin [Adult Low Dose Aspirin] 81 mg tablet,delayed release (DR/EC) 81 mg PO BEDTIME albuterol sulfate 90 mcg/actuation HFA aerosol inhaler 2 puff inhalation Q6H PRN (Reason: shortness of breath or wheezing) Qty: 8.5 0RF lisinopril 10 mg tablet 10 mg PO QAM 30 Days Qty: 30 5RF Rx Instructions: 340B (DME) blood sugar diagnostic Strip See Rx Instructions .ROUTE .MEDSUPPLY Qty: 100 12RF Rx Instructions: use three times daily Eliquis 5 mg tablet 5 mg PO BID 30 Days Qty: 60 5RF metoprolol tartrate 50 mg tablet 50 mg PO BID 30 Days Qty: 60 5RF Tresiba FlexTouch U-200 200 unit/mL (3 mL) insulin pen 85 unit SUBCUT BID 30 Days Qty: 27 2RF Novolog FlexPen U-100 Insulin 100 unit/mL (3 mL) insulin pen 65 unit SUBCUT TID 30 Days Qty: 60 5RF hydrocodone-acetaminophen 5-325 mg tablet 1 tab PO DAILY PRN (Reason: pain) 30 Days Qty: 30 0RF (DME) Comfort EZ Pen Goode 33 gauge x 1/4 needle See Rx Instructions .ROUTE .MEDSUPPLY Qty: 100 11RF Rx Instructions: As directed, LONG 8mm miscellaneous medical supply [facility] [place] See Rx Instructions miscellaneous .COMPLEX Qty: 1 5RF Rx Instructions: BiPAP supplies, mask and tubing etc. miscellaneous; gabapentin 300 mg capsule 300 mg PO TID 30 Days Qty: 90 2RF (DME) blood-glucose meter Mis See Rx Instructions .Route Qty: 1 0RF Rx Instructions: Use to test blood sugars 4 times daily (DME) Blood Glucose Test Strip See Rx Instructions .Route Qty: 50 11RF Rx Instructions: Use to test blood sugar 4 times daily (DME) lancets [Accu-Chek Softclix Lancets] Mis See Rx Instructions .Route Qty: 200 11RF Rx Instructions: Use to test blood sugar 4 times daily cyclobenzaprine 10 mg tablet 10 mg PO TID atorvastatin 20 mg tablet 20 mg PO QAM Rx Instructions: 340B cetirizine 10 mg tablet 10 mg PO QAM ibuprofen 800 mg tablet 800 mg PO BID glipizide 10 mg tablet 10 mg PO BID omeprazole 40 mg capsule,delayed release(DR/EC) 40 mg PO QAM trazodone 100 mg tablet 200 mg PO BEDTIME doxazosin 4 mg tablet 4 mg PO QAM Vistaril 25 mg capsule 50 mg PO TID Novolog FlexPen U-100 Insulin 100 unit/mL (3 mL) insulin pen 65 unit SUBCUT TID bupropion HCl 300 mg tablet extended release 24 hr 300 mg PO QAM Tresiba FlexTouch U-200 200 unit/mL (3 mL) insulin pen 85 unit SUBCUT BID Discharge Orders: Discharge ED (Routine); Ordered 07/17/22 Ordered By: Ryan Ramirez Referrals: Lia Pennington MD [Primary Care Provider] - Discharge Diet: Usual diet Discharge Activity: Resume usual activity Patient Instructions: Opioid Safety, Pain Management Activity Restrictions/Additional Instructions: Continue taking your current medications. Follow-up with your primary care physician in a week for reevaluation. Return with new or worsening symptoms. Coding Level of Care Code ED Chemical Radiation Technician for Ammy Fwd Exam Comprehensive
[2022-07-17 15:51] LABS: Basophils # 0.1 10^3/uL (0.0-0.1); Basophils % 0.5 %; Eosinophils # 0.3 10^3/uL (0.0-0.8); Eosinophils % 2.3 %; Hematocrit 38.4 % (42.0-52.0); Hemoglobin 12.2 g/dL (11.7-16.6); Lymphocytes # 3.6 10^3/uL (0.8-4.8); Lymphocytes % 32.9 %; Mean Corpuscular HGB Conc 31.8 g/dL (30.0-36.0); Mean Corpuscular Hemoglobin 28.4 pg (28.0-34.0); Mean Corpuscular Volume 89.3 fl (80-94); Mean Platelet Volume 9.8 fL (7.4-10.4); Monocytes # 0.9 10^3/uL (0.2-0.9); Monocytes % 8.4 %; Neutrophils # 6.08 10^3/uL (1.8-7.7); Neutrophils % 55.3 %; Nucleated Red Blood Cells % 0 %; Platelet Count 277 10^3/cmm (130-400); Red Cell Distribution Width 13.7 % (12.1-15.1)
[2022-07-17 15:54] VITALS: BP 125/66; PULSE 92; RESP 16; O2SAT 96
[2022-07-17 16:10] LABS: Troponin(5th) Baseline 7 ng/L (0-15)
[2022-07-17 16:12] LABS: Alanine Aminotransferase 15 U/L (0-41); Albumin Level 3.8 g/dL (3.5-5.2); Alkaline Phosphatase 103 U/L (40-130); Anion Gap 13.1 (5-19); Aspartate Amino Transferase 14 U/L (0-40); Blood Urea Nitrogen 15 mg/dL (8-23); Calcium 8.7 mg/dL (8.5-10.5); Carbon Dioxide 26 mmol/L (22-29); Chloride 101 mmol/L (98-107); Globulin 3.1 g/dL (1.3-4.6); Glucose 147 mg/dL (65-115); Osmolality Calculated 286 mOsm/kg (285-295); Potassium 4.1 mmol/L (3.5-5.1); Sodium 136 mmol/L (136-145); Total Bilirubin 0.2 mg/dL (0.15-1.2); Total Protein 6.9 g/dL (6.6-8.7)
[2022-07-17 17:23] VITALS: RESP 22
[2022-07-17] MEDS: morphine 4 mg/mL SDV 1 mL IVP (17:23)
== END 2022-07-17 17:50 | disposition home or self-care (01) ==
PROVIDERS: Emergency Provider Family Medicine; PCP Family Medicine
DX: I48.91 Unspecified atrial fibrillation (principal); Z79.82 Long term (current) use of aspirin; Z79.01 Long term (current) use of anticoagulants; Z79.4 Long term (current) use of insulin; Z79.84 Long term (current) use of oral hypoglycemic drugs; E78.5 Hyperlipidemia, unspecified; I10 Essential (primary) hypertension; E11.9 Type 2 diabetes mellitus without complications; Z87.891 Personal history of nicotine dependence
CPT/HCPCS: 71045; 80053; 84484; 85025; 93005; 96374; 99285; J2270

== ENCOUNTER → 2022-08-20 14:38 | Outpatient (BNVA) | payer MEDICARE, SELFPAY | PROVIDERS: PCP Family Medicine; Visit Provider Internal Medicine Cardiovascular Disease | DX: I48.91 Unspecified atrial fibrillation (principal); I48.92 Unspecified atrial flutter; R07.9 Chest pain, unspecified; E11.42 Type 2 diabetes mellitus with diabetic polyneuropathy; Z79.4 Long term (current) use of insulin; G47.33 Obstructive sleep apnea (adult) (pediatric); E78.5 Hyperlipidemia, unspecified; I10 Essential (primary) hypertension; F33.1 Major depressive disorder, recurrent, moderate; Z87.891 Personal history of nicotine dependence; Z79.01 Long term (current) use of anticoagulants | CPT/HCPCS: 99205 ==

== ENCOUNTER 2022-09-11 13:55 | Emergency (ER) | payer MEDICARE, MEDICAID, SELFPAY ==
[2022-09-11 14:08] VITALS: BP 116/73; PULSE 53; RESP 20; TEMP 36.3; O2SAT 93; BMI 48.7
--- NOTE | 2022-09-11 14:58 | XR_ITS ---
WS: [id number] Exam: XR lumbar spine 2-3V* [id number] Date/Time of Exam: 09/11/2022 2:58 PM Reason For Exam: Low back pain after fall Comparison 12/05/2021. No fracture or dislocation. Mild spondylosis. Disc spaces are preserved. Posterior elements are intac t. Prominent calcifications superimpose both kidneys and apparently represent known renal calculi. XR/XR lumbar spine 2-3V* [id number] IMPRESSION: 1. Mild degenerative changes. No fracture or malalignment. 2. Bilateral renal stones.
--- NOTE | 2022-09-11 14:58 | XR_ITS ---
WS: [id number] Exam: XR thoracic spine 3V* [id number] Date/Time of Exam: 09/11/2022 2:58 PM Reason For Exam: Mid back pain after fall No acute fracture or dislocation. No scoliosis identified. There is spondylosis. Unremarkable paraspi nal soft tissues. XR/XR thoracic spine 3V* [id number] IMPRESSION: 1. Mild spondylosis. No acute fracture or malalignment.
--- NOTE | 2022-09-11 14:59 | ED_ITS ---
Documented by User: [email or web address] Michael 09/11/22 17:09 HPI - Fall General: Chief Complaint: Fall Stated Complaint: back pain Time Seen by Provider: 09/11/22 14:28 History of Present Illness: Patient is a 67-year-old male who comes to the ED with back pain after fall. Injury occurred just prior to arrival. Patient states that he lost his balance and fell backwards. His mid and lower back hit the front wooden part of sofa. He denies any head trauma or loss of consciousness. He is now having 9 out of 10 pain in his lower back and mid back region. Any movement causes worsening pain. Denies any other symptoms. Associated symptoms-after fall: Denies abdominal pain, chest pain, headache(s), hematuria or neck pain Review of Systems Const: Denies: fever(s), chills or fatigue Eyes: Denies: change in vision or eye discomfort ENMT: Denies: throat pain, odynophagia, nasal discharge or nasal congestion Card: Denies: chest pain, palpitations, edema, swelling of feet/ankles, dyspnea on exertion or orthopnea Resp: Denies: dyspnea, productive cough or non-productive cough GI: Denies: abdominal pain, nausea, vomiting, diarrhea, constipation or hematochezia : Denies: flank pain, difficulty urinating, dysuria or hematuria Musc: Reports: back pain; Denies: neck pain or extremity swelling Skin/Breast: Denies: rash or new lesions Neuro: Denies: headache(s), numbness in extremities or weakness in extremities [facility] ED PFSH: Medical History BPH (benign prostatic hyperplasia) (~06/2020) Chronic back pain Chronic pain of both shoulders Dyslipidemia Generalized anxiety disorder GERD (gastroesophageal reflux disease) Hypertension Major depressive disorder, recurrent, moderate Psychiatric care Seasonal allergies Sleep apnea Type 2 diabetes mellitus Surgical History H/O circumcision H/O shoulder surgery right for rotator cuff repair H/O wrist surgery right History of appendectomy (~1975) History of colonoscopy Family History Mother Diabetes Grandmother Heart disease Father Stroke Social History Smoking and tobacco status: former smoker Quit status (tobacco): has quit using tobacco Year quit tobacco: 2011 Second hand smoke exposure: No Alcohol intake: never Caregiver/support person: Yes Lives independently: No Household members: spouse Sexually active: Yes Current gender identity: Male Physical Exam Const: COMMON NORMALS: patient oriented x3 HENMT: COMMON NORMALS: normocephalic HEAD & SCALP: normocephalic MOUTH: Normal oral and palatal mucosa present THROAT: posterior oropharynx normal and uvula midline Neck/C-Spine: COMMON NORMALS: supple GENERAL: Yes normal visual inspection Resp: COMMON NORMALS: normal respiratory effort, No retractions, No use of accessory muscles and clear to auscultation bilaterally AUSCULTATION: clear to auscultation bilaterally Cardio: COMMON NORMALS: regular rate, regular rhythm, S1 normal heart sound present, S2 normal heart sound present, No gallops present (Cardio), No clicks present (Cardio), No murmurs present (Cardio) and Peripheral pulses 2+ throughout RATE: regular rate RHYTHM: regular rhythm HEART SOUNDS: S1 normal heart sound present and S2 normal heart sound present PERIPHERAL PULSES: Peripheral pulses 2+ throughout GI: COMMON NORMALS: Normal to inspection, nondistended, normoactive bowel sounds present, Soft to palpation, non-tender and no masses PALPATION: Yes Soft to palpation : COMMON NORMALS: Yes no CVA tenderness BLADDER/KIDNEY EXAM: Yes no CVA tenderness Back/Pelvis: COMMON NORMALS: no CVA tenderness THORACIC SPINE/UPPER BACK: Yes thoracic spinal tenderness T-spine tenderness location: T6 and T7 and Yes paraspinal muscle tenderness Thoracic paraspinal muscle tenderness: bilateral LUMBAR SPINE/LOWER BACK: Yes lumbar spinal tenderness and Yes paraspinal muscle tenderness Lumbar paraspinal muscle tenderness: bilateral Extremity: COMMON NORMALS: normal to inspection Neuro: COMMON NORMALS: patient oriented x3 GAIT: Yes Normal gait present Skin: GENERAL SKIN EXAM: dry skin Course Vital Signs: Vital signs: Vital Signs Temperature 97.4 F L 09/11/22 14:08 Pulse Rate 53 L 09/11/22 14:08 Respiratory Rate 20 H 09/11/22 14:08 Blood Pressure 116/73 09/11/22 14:08 Pulse Oximetry 93 09/11/22 14:08 Oxygen Delivery Me thod 09/11/22 14:08 MDM - Fall Medical Decision Making Patient is a 67-year-old male who comes to the ED with mid lower back pain after fall. He denies any head trauma or loss of consciousness. Patient fell back into the front part of couch causing mid and lower back pain. Vitals are stable. X-ray of lumbar and thoracic spine showed no acute fractures or findings but noted some renal stones. UA showed RBCs but no signs of UTI. CT kidney stone is pending to further evaluate bilateral renal stones. Patient care was handed off to [place] nurse practitioner at shift change. Lab Data I reviewed the patient's lab results. Radiology Impressions Lumbar Spine X-Ray 09/11/22 14:58 IMPRESSION: 1. Mild degenerative changes. No fracture or malalignment. 2. Bilateral renal stones. Thoracic Spine X-Ray 09/11/22 14:58 IMPRESSION: 1. Mild spondylosis. No acute fracture or malalignment. Abdomen/Pelvis CT 09/11/22 15:41 IMPRESSION: 1. Bilateral nephrolithiasis. 2. No hydronephrosis or ureteral calculi 3. Question of mild bladder wall thickening. Please correlate for any clinical signs or symptoms of urinary tract infection. Laboratory Results Urine Color Yellow (Yellow) 09/11/22 16:05 Urine Appearance Hazy (CLEAR) A 09/11/22 16:05 Urine pH 5 (5-7) 09/11/22 16:05 Ur Specific [place] 1.025 (1.005-1.030) 09/11/22 16:05 Urine Protein Trace (Negative) 09/11/22 16:05 Urine Glucose (UA) 1+ (Normal) H 09/11/22 16:05 Urine Ketones Negative (Negative) 09/11/22 16:05 Urine Blood 3+ (Negative) H 09/11/22 16:05 Urine Nitrate Negative (Negative) 09/11/22 16:05 Urine Bilirubin Neg (Negative) 09/11/22 16:05 Urine Urobilinogen Norm mg/dL (Negative) 09/11/22 16:05 Ur Leukocyte Esterase Negative (Negative) 09/11/22 16:05 Urine RBC >100 /hpf (0-2) H 09/11/22 16:05 Urine WBC None /hpf (0-5) 09/11/22 16:05 Ur Squamous Epith Cells None /hpf (0-5) 09/11/22 16:05 Other Crystals Sulfa /hpf 09/11/22 16:05 Amorphous Sediment Not Reportable 09/11/22 16:05 Urine Bacteria 1+ /hpf (NONE) H 09/11/22 16:05 Discharge Plan Discharge Patient Disposition: Home Clinical Impression: Bilateral nephrolithiasis, Acute UTI Back pain Qualifiers: Back pain location: low back pain Chronicity: unspecified Back pain laterality: unspecified Sciatica presence: without sciatica Qualified Code(s): M54.50 - Low back pain, unspecified Condition: Stable Prescriptions: New hydrocodone-acetaminophen 5-325 mg tablet 1 tab PO Q8H PRN (Reason: pain (scale score 7-10)) Qty: 7 0RF celecoxib 100 mg capsule 100 mg PO BID Qty: 20 0RF Cipro 500 mg tablet 500 mg PO BID Qty: 14 0RF No Action (DME) blood-glucose meter Misc See Rx Instructions .ROUTE .MEDSUPPLY Qty: 1 0RF Rx Instructions: ONE TOUCH ULTRA METER (DME) lancets [OneTouch UltraSoft Lancets] Misc See Rx Instructions .ROUTE .COMPLEX Qty: 100 11RF Dose Instruction: CHECK BLOOD SUGAR 4 TIMES DAILY ULTRASOFT LANCETS Rx Instructions: CHECK BLOOD SUGAR 4 TIMES DAILY ULTRASOFT LANCETS albuterol sulfate 90 mcg/actuation HFA aerosol inhaler 2 puff inhalation Q6H PRN (Reason: shortness of breath or wheezing) Qty: 8.5 0RF lisinopril 10 mg tablet 10 mg PO QAM 30 Days Qty: 30 5RF Rx Instructions: 340B (DME) blood sugar diagnostic Strip See Rx Instructions .ROUTE .MEDSUPPLY Qty: 100 12RF Rx Instructions: use three times daily (DME) Blood Glucose Test Strip See Rx Instructions .Route Qty: 50 11RF Rx Instructions: Use to test blood sugar 4 times daily insulin lispro [Humalog KwikPen Insulin] 100 unit/mL insulin pen 65 unit SUBCUT TID 30 Days Qty: 60 2RF Eliquis 5 mg tablet 5 mg PO BID 30 Days Qty: 60 5RF metoprolol tartrate 50 mg tablet 50 mg PO BID 30 Days Qty: 60 5RF Tresiba FlexTouch U-200 200 unit/mL (3 mL) insulin pen 85 unit SUBCUT BID 30 Days Qty: 27 2RF hydrocodone-acetaminophen 5-325 mg tablet 1 tab PO DAILY PRN (Reason: pain) 30 Days Qty: 30 0RF (DME) Comfort EZ Pen [place] 33 gauge x 1/4 needle See Rx Instructions .ROUTE .MEDSUPPLY Qty: 100 11RF Rx Instructions: As directed, LONG 8mm nitroglycerin 0.4 mg tablet, sublingual 0.4 mg sublingual Q5M PRN Rx Instructions: do not exceed 3 doses per episode amiodarone 400 mg tablet 400 mg PO BID MDD 1200 Qty: 60 0RF Rx Instructions: 400 BID FOR 1wk; 400 BID FOR 1 WK; 400 DAILY FOR 1WK FOLLOWED BY 200 DAILY miscellaneous medical supply Misc See Rx Instructions miscellaneous .COMPLEX Qty: 1 5RF Rx Instructions: BiPAP supplies, mask and tubing etc. miscellaneous; gabapentin 300 mg capsule 300 mg PO TID 30 Days Qty: 90 2RF (DME) blood-glucose meter Misc See Rx Instructions .Route Qty: 1 0RF Rx Instructions: Use to test blood sugars 4 times daily (DME) lancets [Accu-Chek Softclix Lancets] Misc See Rx Instructions .Route Qty: 200 11RF Rx Instructions: Use to test blood sugar 4 times daily cyclobenzaprine 10 mg tablet See Rx Instructions .ROUTE .COMPLEX Qty: 90 2RF Dose Instruction: TAKE ONE TABLET BY MOUTH THREE TIMES A DAY NEEDED FOR MUSCLE SPASMS Rx Instructions: TAKE ONE TABLET BY MOUTH THREE TIMES A DAY NEEDED FOR MUSCLE SPASMS trazodone 100 mg tablet See Rx Instructions .ROUTE .COMPLEX Qty: 60 3RF Dose Instruction: TAKE 1 TO 2 TABLETS BY MOUTH AT BEDTIME FOR INSOMNIA Rx Instructions: TAKE 1 TO 2 TABLETS BY MOUTH AT BEDTIME FOR INSOMNIA bupropion HCl 300 mg tablet extended release 24 hr See Rx Instructions .ROUTE .COMPLEX Qty: 30 3RF Dose Instruction: TAKE ONE TABLET BY MOUTH EVERY MORNING Rx Instructions: TAKE ONE TABLET BY MOUTH EVERY MORNING atorvastatin 20 mg tablet See Rx Instructions .ROUTE .COMPLEX Qty: 30 0RF Dose Instruction: TAKE ONE TABLET BY MOUTH EVERY DAY Rx Instructions: TAKE ONE TABLET BY MOUTH EVERY DAY ibuprofen 800 mg tablet See Rx Instructions .ROUTE .COMPLEX Qty: 60 0RF Dose Instruction: TAKE ONE TABLET BY MOUTH TWICE A DAY NEEDED FOR PAIN FOR 30 DAYS Rx Instructions: TAKE ONE TABLET BY MOUTH TWICE A DAY NEEDED FOR PAIN FOR 30 DAYS glipizide 10 mg tablet See Rx Instructions .ROUTE .COMPLEX Qty: 60 0RF Dose Instruction: TAKE ONE TABLET BY MOUTH TWICE A DAY Rx Instructions: TAKE ONE TABLET BY MOUTH TWICE A DAY doxazosin 4 mg tablet See Rx Instructions .ROUTE .COMPLEX Qty: 30 0RF Dose Instruction: TAKE ONE TABLET BY MOUTH EVERY DAY Rx Instructions: TAKE ONE TABLET BY MOUTH EVERY DAY cetirizine 10 mg tablet 10 mg PO QAM omeprazole 40 mg capsule,delayed release(DR/EC) 40 mg PO QAM Vistaril 25 mg capsule 50 mg PO TID Novolog FlexPen U-100 Insulin 100 unit/mL (3 mL) insulin pen 65 unit SUBCUT TID Tresiba FlexTouch U-200 200 unit/mL (3 mL) insulin pen 85 unit SUBCUT BID Discharge Orders: Discharge ED (Routine); Ordered 09/11/22 Ordered By: Chavo V[place]la Referrals: Lia Pennington MD [Primary Care Provider] - Discharge Diet: Usual diet Discharge Activity: Increase activity as tolerated Patient Instructions: Opioid Safety, Pain Management Activity Restrictions/Additional Instructions: Home and rest. Drink plenty water. Take medications as directed. Do not use naproxen or ibuprofen with celecoxib. Use celecoxib routinely for pain and discomfort. Use hydrocodone for severe pain. Follow-up with primary care for further instructions. Return to ED for new concerns. You will need to follow- up regarding blood in the urine for repeat evaluation and possible further treatment/evaluation. Sign Out Sign Out Data: Patient Sign Out occurred on 09/11/22 at 17:20. Patient's care was discussed, and care was transferred from to Chavo V[place]la. Coding Level of Care Code ED Template Checker for Chg Fwd Documented by User: ELINOR Xie 09/11/22 17:42 HPI - Fall General: Chief Complaint: Fall Stated Complaint: back pain Time Seen by Provider: 09/11/22 14:28 [facility] ED PFS: Medical History BPH (benign prostatic hyperplasia) (~06/2020) Chronic back pain Chronic pain of both shoulders Dyslipidemia Generalized anxiety disorder GERD (gastroesophageal reflux disease) Hypertension Major depressive disorder, recurrent, moderate Psychiatric care Seasonal allergies Sleep apnea Type 2 diabetes mellitus Surgical History H/O circumcision H/O shoulder surgery right for rotator cuff repair H/O wrist surgery right History of appendectomy (~1975) History of colonoscopy Family History Mother Diabetes Grandmother Heart disease Father Stroke Social History Smoking and tobacco status: former smoker Quit status (tobacco): has quit using tobacco Year quit tobacco: 2011 Second hand smoke exposure: No Alcohol intake: never Caregiver/support person: Yes Lives independently: No Household members: spouse Sexually active: Yes Current gender identity: Male Course Vital Signs: Vital signs: Vital Signs Temperature 97.4 F L 09/11/22 14:08 Pulse Rate 53 L 09/11/22 14:08 Respiratory Rate 20 H 09/11/22 14:08 Blood Pressure 116/73 09/11/22 14:08 Pulse Oximetry 93 09/11/22 14:08 Oxygen Delivery Me thod 09/11/22 14:08 MDM - Fall Medical Decision Making Patient is a 67-year-old male who comes to the ED with mid lower back pain after fall. He denies any head trauma or loss of consciousness. Patient fell back into the front part of couch causing mid and lower back pain. Vitals are stable. X-ray of lumbar and thoracic spine showed no acute fractures or findings but noted some renal stones. UA showed RBCs but no signs of UTI. CT kidney stone is pending to further evaluate bilateral renal stones. Patient care was handed off to [place] nurse practitioner at shift change. CT noted nephrolithiasis, without signs of hydronephrosis or obstruction. It was noted patient had some urinary bladder wall thickening that may be suggestive of cystitis. Reviewed exam with patient with recommendations for treatment for back pain, UTI. Patient was also recommended to follow-up to have urine rechecked in about 1 week to ensure that blood has resolved and patient does need further evaluation to rule out need for further evaluation. Patient reported understanding and agreed to plan. Lab Data Radiology Impressions Lumbar Spine X-Ray 09/11/22 14:58 IMPRESSION: 1. Mild degenerative changes. No fracture or malalignment. 2. Bilateral renal stones. Thoracic Spine X-Ray 09/11/22 14:58 IMPRESSION: 1. Mild spondylosis. No acute fracture or malalignment. Abdomen/Pelvis CT 09/11/22 15:41 IMPRESSION: 1. Bilateral nephrolithiasis. 2. No hydronephrosis or ureteral calculi 3. Question of mild bladder wall thickening. Please correlate for any clinical signs or symptoms of urinary tract infection. Laboratory Results Urine Color Yellow (Yellow) 09/11/22 16:05 Urine Appearance Hazy (CLEAR) A 09/11/22 16:05 Urine pH 5 (5-7) 09/11/22 16:05 Ur Specific [place] 1.025 (1.005-1.030) 09/11/22 16:05 Urine Protein Trace (Negative) 09/11/22 16:05 Urine Glucose (UA) 1+ (Normal) H 09/11/22 16:05 Urine Ketones Negative (Negative) 09/11/22 16:05 Urine Blood 3+ (Negative) H 09/11/22 16:05 Urine Nitrate Negative (Negative) 09/11/22 16:05 Urine Bilirubin Neg (Negative) 09/11/22 16:05 Urine Urobilinogen Norm mg/dL (Negative) 09/11/22 16:05 Ur Leukocyte Esterase Negative (Negative) 09/11/22 16:05 Urine RBC >100 /hpf (0-2) H 09/11/22 16:05 Urine WBC None /hpf (0-5) 09/11/22 16:05 Ur Squamous Epith Cells None /hpf (0-5) 09/11/22 16:05 Other Crystals Sulfa /hpf 09/11/22 16:05 Amorphous Sediment Not Reportable 09/11/22 16:05 Urine Bacteria 1+ /hpf (NONE) H 09/11/22 16:05 Discharge Plan Discharge Patient Disposition: Home Clinical Impression: Bilateral nephrolithiasis, Acute UTI Back pain Qualifiers: Back pain location: low back pain Chronicity: unspecified Back pain laterality: unspecified Sciatica presence: without sciatica Qualified Code(s): M54.50 - Low back pain, unspecified Condition: Stable Prescriptions: New hydrocodone-acetaminophen 5-325 mg tablet 1 tab PO Q8H PRN (Reason: pain (scale score 7-10)) Qty: 7 0RF celecoxib 100 mg capsule 100 mg PO BID Qty: 20 0RF Cipro 500 mg tablet 500 mg PO BID Qty: 14 0RF No Action (DME) blood-glucose meter Misc See Rx Instructions .ROUTE .MEDSUPPLY Qty: 1 0RF Rx Instructions: ONE TOUCH ULTRA METER (DME) lancets [OneTouch UltraSoft Lancets] Misc See Rx Instructions .ROUTE .COMPLEX Qty: 100 11RF Dose Instruction: CHECK BLOOD SUGAR 4 TIMES DAILY ULTRASOFT LANCETS Rx Instructions: CHECK BLOOD SUGAR 4 TIMES DAILY ULTRASOFT LANCETS albuterol sulfate 90 mcg/actuation HFA aerosol inhaler 2 puff inhalation Q6H PRN (Reason: shortness of breath or wheezing) Qty: 8.5 0RF lisinopril 10 mg tablet 10 mg PO QAM 30 Days Qty: 30 5RF Rx Instructions: 340B (DME) blood sugar diagnostic Strip See Rx Instructions .ROUTE .MEDSUPPLY Qty: 100 12RF Rx Instructions: use three times daily (DME) Blood Glucose Test Strip See Rx Instructions .Route Qty: 50 11RF Rx Instructions: Use to test blood sugar 4 times daily insulin lispro [Humalog KwikPen Insulin] 100 unit/mL insulin pen 65 unit SUBCUT TID 30 Days Qty: 60 2RF Eliquis 5 mg tablet 5 mg PO BID 30 Days Qty: 60 5RF metoprolol tartrate 50 mg tablet 50 mg PO BID 30 Days Qty: 60 5RF Tresiba FlexTouch U-200 200 unit/mL (3 mL) insulin pen 85 unit SUBCUT BID 30 Days Qty: 27 2RF hydrocodone-acetaminophen 5-325 mg tablet 1 tab PO DAILY PRN (Reason: pain) 30 Days Qty: 30 0RF (DME) Comfort EZ Pen [place] 33 gauge x 1/4 needle See Rx Instructions .ROUTE .MEDSUPPLY Qty: 100 11RF Rx Instructions: As directed, LONG 8mm nitroglycerin 0.4 mg tablet, sublingual 0.4 mg sublingual Q5M PRN Rx Instructions: do not exceed 3 doses per episode amiodarone 400 mg tablet 400 mg PO BID MDD 1200 Qty: 60 0RF Rx Instructions: 400 BID FOR 1wk; 400 BID FOR 1 WK; 400 DAILY FOR 1WK FOLLOWED BY 200 DAILY miscellaneous medical supply [facility] [place] See Rx Instructions miscellaneous .COMPLEX Qty: 1 5RF Rx Instructions: BiPAP supplies, mask and tubing etc. miscellaneous; gabapentin 300 mg capsule 300 mg PO TID 30 Days Qty: 90 2RF (DME) blood-glucose meter [facility] [place] See Rx Instructions .Route Qty: 1 0RF Rx Instructions: Use to test blood sugars 4 times daily (DME) lancets [Accu-Chek Softclix Lancets] [facility] [place] See Rx Instructions .Route Qty: 200 11RF Rx Instructions: Use to test blood sugar 4 times daily cyclobenzaprine 10 mg tablet See Rx Instructions .ROUTE .COMPLEX Qty: 90 2RF Dose Instruction: TAKE ONE TABLET BY MOUTH THREE TIMES A DAY NEEDED FOR MUSCLE SPASMS Rx Instructions: TAKE ONE TABLET BY MOUTH THREE TIMES A DAY NEEDED FOR MUSCLE SPASMS trazodone 100 mg tablet See Rx Instructions .ROUTE .COMPLEX Qty: 60 3RF Dose Instruction: TAKE 1 TO 2 TABLETS BY MOUTH AT BEDTIME FOR INSOMNIA Rx Instructions: TAKE 1 TO 2 TABLETS BY MOUTH AT BEDTIME FOR INSOMNIA bupropion HCl 300 mg tablet extended release 24 hr See Rx Instructions .ROUTE .COMPLEX Qty: 30 3RF Dose Instruction: TAKE ONE TABLET BY MOUTH EVERY MORNING Rx Instructions: TAKE ONE TABLET BY MOUTH EVERY MORNING atorvastatin 20 mg tablet See Rx Instructions .ROUTE .COMPLEX Qty: 30 0RF Dose Instruction: TAKE ONE TABLET BY MOUTH EVERY DAY Rx Instructions: TAKE ONE TABLET BY MOUTH EVERY DAY ibuprofen 800 mg tablet See Rx Instructions .ROUTE .COMPLEX Qty: 60 0RF Dose Instruction: TAKE ONE TABLET BY MOUTH TWICE A DAY NEEDED FOR PAIN FOR 30 DAYS Rx Instructions: TAKE ONE TABLET BY MOUTH TWICE A DAY NEEDED FOR PAIN FOR 30 DAYS glipizide 10 mg tablet See Rx Instructions .ROUTE .COMPLEX Qty: 60 0RF Dose Instruction: TAKE ONE TABLET BY MOUTH TWICE A DAY Rx Instructions: TAKE ONE TABLET BY MOUTH TWICE A DAY doxazosin 4 mg tablet See Rx Instructions .ROUTE .COMPLEX Qty: 30 0RF Dose Instruction: TAKE ONE TABLET BY MOUTH EVERY DAY Rx Instructions: TAKE ONE TABLET BY MOUTH EVERY DAY cetirizine 10 mg tablet 10 mg PO QAM omeprazole 40 mg capsule,delayed release(DR/EC) 40 mg PO QAM Vistaril 25 mg capsule 50 mg PO TID Novolog FlexPen U-100 Insulin 100 unit/mL (3 mL) insulin pen 65 unit SUBCUT TID Tresiba FlexTouch U-200 200 unit/mL (3 mL) insulin pen 85 unit SUBCUT BID Discharge Orders: Discharge ED (Routine); Ordered 09/11/22 Ordered By: Chavo Villela Referrals: Lia Pennington MD [Primary Care Provider] - Discharge Diet: Usual diet Discharge Activity: Increase activity as tolerated Patient Instructions: Opioid Safety, Pain Management Activity Restrictions/Additional Instructions: Home and rest. Drink plenty water. Take medications as directed. Do not use naproxen or ibuprofen with celecoxib. Use celecoxib routinely for pain and discomfort. Use hydrocodone for severe pain. Follow-up with primary care for further instructions. Return to ED for new concerns. You will need to follow- up regarding blood in the urine for repeat evaluation and possible further treatment/evaluation. Sign Out Sign Out Data: Patient Sign Out occurred on 09/11/22 at 17:20. Patient's care was discussed, and care was transferred from to Chavo V[place]la. Coding Level of Care Code ED Template Checker for Ammy Rust
[2022-09-11] MEDS: HYDROcodone-acetaminophen 7.5-325 mg Tablet 1 TAB PO (15:38)
--- NOTE | 2022-09-11 15:41 | CTR_ITS ---
PROCEDURE INFORMATION: Exam: CT Abdomen And Pelvis Without Contrast Exam date and time: 09/11/2022 4:06 PM Age: 67 years old Clinical indication: Abdominal pain; Generalized; Prior surgery; Surgery date: 6+ months; Surgery type: Appy; Additional info: Bilateral back pain, renal stone seen on x-ray TECHNIQUE: Imaging protocol: Computed tomography of the abdomen and pelvis without contrast. Radiation optimization: All CT scans at this facility use at least one of these dose optimization techniques: automated exposure control; mA and/or kV adjustment per patient size (includes targeted exams where dose is matched to clinical indication); or iterative reconstruction. REPORTING DATA: Count of CT and Cardiac NM exams in prior 12 months: This patient has received [address] and 0 known cardiac nuclear medicine studies in the 12 months prior to the current study. COMPARISON: CT kidney stone [id number] 07/13/2018 12:47 PM RADIATION DOSE METRICS: Total DLP (mGy-cm): 1370.23 FINDINGS: Limitations: The absence of intravenous contrast lessens the sensitivity of this study for solid organ abnormalities. Liver: There is no focal abnormality within the liver. Gallbladder and bile ducts: The gallbladder is normal. Pancreas: The pancreas is normal. Spleen: The spleen is normal. Adrenal glands: The adrenal glands are normal. Kidneys and ureters: There are multiple bilateral renal collecting system calcifications. Larger renal stone on the right not significantly changed from 07/13/2018. The tiny calcification in an upper pole calyx on the right is slightly larger in the 8.9 mm calcification mid left kidney was previously 7.5 mm. There is a prominent extrarenal pelvis on the left not significantly changed.There is no evidence of hydronephrosis. There is no stone along the course of either ureter. Stomach and bowel: There is no evidence of colitis/diverticulitis. There is no evidence of intestinal obstruction. There is no evidence of intestinal obstruction. Appendix: Not identified Intraperitoneal space: There is no evidence of free intraperitoneal fluid. There is no evidence of free intraperitoneal fluid. Vasculature: The aorta demonstrates mild atherosclerotic calcification. There is no evidence of an abdominal aortic aneurysm. Lymph nodes: There are mildly prominent periaortic and iliac lymph nodes not significantly changed.There is no evidence of lymphadenopathy. Urinary bladder: There is mild thickening of the urinary bladder wall which is not very well distended. This could be due to nondistention however please correlate for any clinical signs or symptoms of urinary tract infection. Reproductive: Unremarkable as visualized. Bones/joints: Unremarkable. No acute fracture. Soft tissues: There is some mild soft tissue stranding in the subcutaneous fat of the anterior abdominal wall which could be due to medication injection. There is a small right inguinal hernia containing only fat unchanged. CT/CT kidney stone [id number] IMPRESSION: 1. Bilateral nephrolithiasis. 2. No hydronephrosis or ureteral calculi 3. Question of mild bladder wall thickening. Please correlate for any clinical signs or symptoms of urinary tract infection.
[2022-09-11 16:40] LABS: Add Urine Microscopic? YES; Bilirubin Urine Neg (Negative); Blood Urine 3+ (Negative); Glucose Urine UA 1+ (Normal); Ketones Urine Negative (Negative); Leukocyte Esterase Urine Negative (Negative); Nitrate Urine Negative (Negative); Protein Urine Trace (Negative); Specific Gravity, Urine 1.025 (1.005-1.030); Urine Appearance Hazy (CLEAR); Urine Color Yellow (Yellow); Urobilinogen Urine Norm (Negative); pH Urine 5 (5-7)
[2022-09-11 16:46] LABS: RBC Urine >100 /hpf (0-2)
[2022-09-11 16:47] LABS: Bacteria Urine 1+ /hpf
[2022-09-11 16:48] LABS: Add Urine Culture? Yes; Other Crystals Urine SULFA /hpf
[2022-09-11] MEDS: morphine 4 mg/mL SDV 1 mL IM (16:58)
== END 2022-09-11 17:44 | disposition home or self-care (01) ==
PROVIDERS: Physician Assistant; Emergency Provider Nurse Practitioner Family; PCP Family Medicine
DX: M54.50 Low back pain, unspecified (principal); N20.0 Calculus of kidney; N39.0 Urinary tract infection, site not specified; Z79.01 Long term (current) use of anticoagulants; Z79.4 Long term (current) use of insulin; Z79.84 Long term (current) use of oral hypoglycemic drugs; Z87.891 Personal history of nicotine dependence; E78.5 Hyperlipidemia, unspecified; I10 Essential (primary) hypertension; E11.9 Type 2 diabetes mellitus without complications
CPT/HCPCS: 72072; 72100; 74176; 81001; 87086; 96372; 99284; J2270

== ENCOUNTER → 2022-09-24 13:26 | Outpatient (BNVA) | payer MEDICARE, MEDICAID, SELFPAY | PROVIDERS: PCP Family Medicine; Visit Provider Nurse Practitioner Family | DX: I48.91 Unspecified atrial fibrillation (principal); I48.92 Unspecified atrial flutter; I10 Essential (primary) hypertension; Z87.891 Personal history of nicotine dependence; Z79.01 Long term (current) use of anticoagulants | CPT/HCPCS: 93005; 99213 ==

== ENCOUNTER → 2022-09-30 08:51 | Outpatient (BNVA) | payer MEDICARE, MEDICAID, SELFPAY | PROVIDERS: PCP Family Medicine; Visit Provider Anesthesiology Pain Medicine | DX: G89.29 Other chronic pain (principal); M47.816 Spondylosis without myelopathy or radiculopathy, lumbar region; M51.16 Intervertebral disc disorders with radiculopathy, lumbar region | CPT/HCPCS: 99204 ==

== ENCOUNTER → 2022-10-07 09:30 | Outpatient (BNVA) | payer MEDICARE, MEDICAID, SELFPAY | PROVIDERS: PCP Family Medicine; Visit Provider Family Medicine | DX: I10 Essential (primary) hypertension (principal); E11.42 Type 2 diabetes mellitus with diabetic polyneuropathy; Z79.4 Long term (current) use of insulin; I48.91 Unspecified atrial fibrillation; I48.92 Unspecified atrial flutter; N40.0 Benign prostatic hyperplasia without lower urinary tract symptoms; M54.9 Dorsalgia, unspecified; G89.29 Other chronic pain; M25.511 Pain in right shoulder; M25.512 Pain in left shoulder; K21.9 Gastro-esophageal reflux disease without esophagitis; N40.1 Benign prostatic hyperplasia with lower urinary tract symptoms; R39.11 Hesitancy of micturition | CPT/HCPCS: 80048; 83036 ==

== ENCOUNTER → 2022-10-15 13:42 | Outpatient (BNVA) | payer MEDICARE, MEDICAID, SELFPAY | PROVIDERS: PCP Family Medicine; Visit Provider Anesthesiology Pain Medicine | DX: G89.29 Other chronic pain (principal); M47.816 Spondylosis without myelopathy or radiculopathy, lumbar region | CPT/HCPCS: 64493; 64494; 64495; J3490 ==

== ENCOUNTER 2022-10-30 13:21 | Outpatient (CLI) | payer MEDICARE, MEDICAID, SELFPAY ==
--- NOTE | 2022-10-30 15:48 | MR_ITS ---
WS: [id number] MRI HEAD WITHOUT CONTRAST TECHNIQUE: Sagittal T1, T2 axial, T2 axial FLAIR, axial and coronal T1 images, axial susceptibility w eighted imaging, axial diffusion weighted images, and coronal T2 images were obtained. CLINICAL INFORMATION: CEREBRAL INFARCTION COMPARISON: CT 2014 FINDINGS: No evidence of restricted diffusion to suggest acute ischemia. Ventricular system and basal cisterns are patent. Mild small vessel changes. Mild parenchymal volume loss. Normal posterior fossa. Normal v ascular flow voids at the skull base. No extra-axial fluid collections. No evidence of mass or mass e ffect. Paranasal sinuses and mastoid air cells well aerated. Small retention cyst LEFT maxillary sinu s. Normal posterior nasopharynx. No hemosiderin on susceptibly weighted images. Normal optic chiasm and pituitary infundibulum. Modera te symmetric atrophy temporal lobes and hippocampal formations. No other suspicious findings. MR/MR head wo con* [id number] IMPRESSION: 1. No evidence of restricted diffusion to suggest acute ischemia. 2. Mild small vessel changes with mild parenchymal volume loss. 3. No hemosiderin on susceptibly weighted images. 4. Moderate symmetric atrophy temporal lobes hippocampal formations. 5. No other suspicious findings.
== END 2022-10-30 13:22 | disposition home or self-care (01) ==
PROVIDERS: PCP Family Medicine; Visit Provider Family Medicine
DX: I63.9 Cerebral infarction, unspecified (principal); I48.91 Unspecified atrial fibrillation; I48.92 Unspecified atrial flutter; R47.89 Other speech disturbances; Z74.09 Other reduced mobility; Z78.9 Other specified health status; W19.XXXA Unspecified fall, initial encounter; Y92.009 Unspecified place in unspecified non-institutional (private) residence as the place of occurrence of the external cause; R26.89 Other abnormalities of gait and mobility
CPT/HCPCS: 70551

== ENCOUNTER → 2022-12-24 13:57 | Outpatient (BNVA) | payer MEDICARE, SELFPAY | PROVIDERS: PCP Family Medicine; Visit Provider Internal Medicine Cardiovascular Disease | DX: I48.91 Unspecified atrial fibrillation (principal); I48.92 Unspecified atrial flutter; R07.89 Other chest pain; G47.33 Obstructive sleep apnea (adult) (pediatric); Z99.89 Dependence on other enabling machines and devices; E78.5 Hyperlipidemia, unspecified; E11.42 Type 2 diabetes mellitus with diabetic polyneuropathy; Z79.4 Long term (current) use of insulin; Z87.891 Personal history of nicotine dependence; Z79.01 Long term (current) use of anticoagulants | CPT/HCPCS: 99214 ==

== ENCOUNTER → 2022-12-31 09:36 | Outpatient (BNVA) | payer MEDICARE, MEDICAID, SELFPAY | PROVIDERS: PCP Family Medicine; Visit Provider Family Medicine | DX: I10 Essential (primary) hypertension (principal); M54.9 Dorsalgia, unspecified; G89.29 Other chronic pain; E11.42 Type 2 diabetes mellitus with diabetic polyneuropathy; Z79.4 Long term (current) use of insulin; E11.9 Type 2 diabetes mellitus without complications; I48.91 Unspecified atrial fibrillation; I48.92 Unspecified atrial flutter; J30.2 Other seasonal allergic rhinitis; J06.9 Acute upper respiratory infection, unspecified; L91.8 Other hypertrophic disorders of the skin | CPT/HCPCS: 80048; 83036 ==

== ENCOUNTER → 2023-02-09 09:39 | Outpatient (BNVA) | payer MEDICARE, MEDICAID, SELFPAY | PROVIDERS: PCP Family Medicine; Visit Provider Surgery | DX: R19.4 Change in bowel habit (principal) | CPT/HCPCS: 99203 ==

== ENCOUNTER → 2023-03-03 16:58 | Outpatient (BNVA) | payer MEDICARE, SELFPAY | PROVIDERS: PCP Family Medicine; Visit Provider Emergency Medicine | DX: M79.674 Pain in right toe(s) (principal); M77.31 Calcaneal spur, right foot | CPT/HCPCS: 73630 ==

== ENCOUNTER → 2023-03-22 11:24 | Outpatient (BNVA) | payer MEDICARE, SELFPAY | PROVIDERS: PCP Family Medicine; Visit Provider Family Medicine | DX: K21.9 Gastro-esophageal reflux disease without esophagitis (principal); E11.9 Type 2 diabetes mellitus without complications; Z23 Encounter for immunization | CPT/HCPCS: 80053; 80061; 83036 ==

== ENCOUNTER → 2023-03-25 10:19 | Outpatient (BNVA) | payer MEDICARE, SELFPAY | PROVIDERS: PCP Family Medicine; Referring Provider Family Medicine; Visit Provider Internal Medicine | DX: E11.42 Type 2 diabetes mellitus with diabetic polyneuropathy (principal); Z79.84 Long term (current) use of oral hypoglycemic drugs; E78.2 Mixed hyperlipidemia; Z79.4 Long term (current) use of insulin | CPT/HCPCS: 99204 ==

== ENCOUNTER → 2023-04-02 17:15 | Outpatient (BNVA) | payer MEDICARE, SELFPAY | PROVIDERS: PCP Family Medicine; Visit Provider Nurse Practitioner Family | DX: E16.2 Hypoglycemia, unspecified (principal); E11.42 Type 2 diabetes mellitus with diabetic polyneuropathy; Z79.4 Long term (current) use of insulin | CPT/HCPCS: 82962 ==

== ENCOUNTER → 2023-06-23 11:02 | Outpatient (BNVA) | payer MEDICARE, SELFPAY | PROVIDERS: PCP Family Medicine; Visit Provider Internal Medicine | DX: E11.42 Type 2 diabetes mellitus with diabetic polyneuropathy (principal); Z79.4 Long term (current) use of insulin; E78.2 Mixed hyperlipidemia; Z79.84 Long term (current) use of oral hypoglycemic drugs | CPT/HCPCS: 99214 ==

== ENCOUNTER → 2023-07-06 12:50 | Outpatient (BNVA) | payer MEDICARE, SELFPAY | PROVIDERS: PCP Family Medicine; Visit Provider Internal Medicine Cardiovascular Disease | DX: R07.9 Chest pain, unspecified (principal); I48.91 Unspecified atrial fibrillation; I48.92 Unspecified atrial flutter; I10 Essential (primary) hypertension; E78.5 Hyperlipidemia, unspecified; Z79.01 Long term (current) use of anticoagulants; Z87.891 Personal history of nicotine dependence | CPT/HCPCS: 99214 ==

== ENCOUNTER 2023-07-19 07:48 | Outpatient (CLI) | payer MEDICARE, SELFPAY ==
[2023-07-19 07:58] VITALS: BMI 47.1
--- NOTE | 2023-07-19 07:59 | ECG_ITS ---
[facility] Test Date: 2023-07-19 Pat Name: eDnnis Velez Department: Room: Gender: Male Cigar Bander: : 1955 Requested By: Ida Segal Order Number: [id number] Coyne MD: Tru Alcantar M.D. Interpretive Statements NAME OF STUDY: LEXISCAN SESTAMIBI STRESS TEST INDICATION: [Chest Pain] Procedure: At the baseline, the blood pressure was 143/78 mmHg with a heart rate of 63 bpm. The electrocardiogram showed atrial fibrillation, normal axis with normal ST and T's. The Lexiscan was infused over a period of 20 seconds. A total of 0.4 mg of Lexiscan was infused. The stress phase was continued for a total of 5 minutes. Heart rate was at the end of stress phase was 61 bpm and a blood pressure of 143/78 mmHg. The EKG at the peak infusion revealed atrial fibrillation with no significant ST-T wave changes. Sestamibi was injected 20 seconds after the Lexiscan infusion. Blood pressure at the end of recovery phase was 130/79 mmHg with a heart rate of 68 bpm. Conclusion: 1. Normal EKG response to Lexiscan infusion 2. No Lexiscan induced chest pain or cardiac arrhythmia. 3. Normal blood pressure and heart rate response. 4. Sestamibi/sestamibi perfusion scan pending; see separate report. Electronically Signed On 08-06-2023 11:17:24 SEED CORE OPERATOR by Tru Alcantar M.D. [id number]
--- NOTE | 2023-07-19 07:59 | NMCV_ITS ---
NM noni perf SPECT r/s* [id number] Dennis Velez Age: 68 Gender: M : 1955 Exam Date: 07/19/2023 07:59 Ordering Phys: Ida Segal MD ([email or web address]) Technologist: ELENA Dye Exam Location: [facility] Indications: CORONARY ANGIOPLASTY STATUS STRESS TEST Please see separate stress test report in Ephiphany for full findings IMAGE PROTOCOL Rest/Stress 1 Lexiscan Day Radiopharmaceutical Dose (mCi) Administration Site Administered by Rest: Tc-99m 10.8 IV ELENA Dye Sestamibi Stress:Tc-99m 33.0 IV ELENA Whitley Sestamibi Rest: 19-Jul-2023 60 Discovery 630 Stress: 19-Jul-2023 30 Discovery 630 0.4mg Lexiscan. Supine position only as patient was unable to lay prone. SPECT RESULTS Technical Quality: Excellent Raw Data Analysis: Normal Image Corrections: No attenuation or motion correction applied Summed Stress Score: 0 Summed Rest Score: 0 Summed Difference Score: 0 PERFUSION FINDINGS SPECT images demonstrate homogeneous tracer distribution throughout the myocardium. FUNCTIONAL RESULTS (calculated via Gated SPECT) Stress Image LV EF (%): 79 Stress EDV (mL):118 TID: 1.03 Stress ESV (mL):25 FUNCTIONAL FINDINGS: There is normal left ventricular systolic function. IMPRESSIONS 1. Normal myocardial perfusion imaging with no evidence of ischemia. 2. LV systolic function is normal. Tru Alcantar MD (Electronically Signed) Final Date: 19 July 2023 11:38 S
[2023-07-19] MEDS: regadenoson 0.4 Mg/5 ml Syringe IVP (09:44)
[2023-07-19 09:58] VITALS: BP 111/72; PULSE 68
== END 2023-07-19 07:49 | disposition home or self-care (01) ==
PROVIDERS: PCP Family Medicine; Visit Provider Internal Medicine Cardiovascular Disease
DX: R07.9 Chest pain, unspecified (principal); Z98.61 Coronary angioplasty status
CPT/HCPCS: 36415; 78452; 93017; 96374; A9500; J2785

== ENCOUNTER 2023-08-24 12:10 | Emergency (ER) | payer MEDICARE, SELFPAY ==
--- NOTE | 2023-08-24 11:15 | ECG_ITS ---
[facility] Test Date: 2023-08-24 Pat Name: Dennis Velez Department: Room: Gender: Male Edi Programmer Analyst: : 1955 Requested By: Octavio Montero Order Number: [id number] Doretha MD: Ida Segal M.D. Measurements Intervals [place] Rate: 70 P: 0 ND: 0 QRS: 64 QRSD: 93 T: 73 QT: 445 QTc: 481 Interpretive Statements ATRIAL FIBRILLATION LOW QRS VOLTAGE IN PRECORDIAL LEADS [QRS DEFLECTION < 1.0 mV IN CHEST LEADS] PROLONGED QT INTERVAL Compared to ECG 07/17/2022 15:25:45 Low QRS voltage now present Prolonged QT interval now present T-wave abnormality no longer present Possible ischemia no longer present Electronically Signed On 08-24-2023 23:05:49 CDT by Ida Segal M.D. [id number]
--- NOTE | 2023-08-24 12:13 | XRR_ITS ---
PROCEDURE INFORMATION: Exam: XR Chest Exam date and time: 08/24/2023 12:32 PM Age: 68 years old Clinical indication: Dyspnea and shortness of breath; Additional info: Dyspnea/cough TECHNIQUE: Imaging protocol: Radiologic exam of the chest. Views: 1 view. COMPARISON: CR XR chest 1V portable [id number] 07/17/2022 3:31 PM FINDINGS: Lungs: Unremarkable. No consolidation. Pleural spaces: Unremarkable. No pleural effusion. No pneumothorax. Heart/Mediastinum: Unremarkable. No cardiomegaly. Bones/joints: Unremarkable. XR/XR chest 1V portable [id number] IMPRESSION: No acute findings.
--- NOTE | 2023-08-24 12:13 | W.ED.CHESTPA ---
HPI - Chest Pain General: Chief Complaint: Chest Pain Stated Complaint: chest pain, back pain Time Seen by Provider: 08/24/23 12:13 Source: patient Mode of arrival: ambulatory History of Present Illness: 68-year-old male presents to the emergency room with complaint of initially back pain began about a week ago after he was doing some heavy lifting has had problems with back pain in the past seems to have exacerbated it. When this morning he started having some chest pain he was at rest when not happen. He has a history of atrial fibrillation is on amiodarone and apixaban. He is not have any history of coronary artery disease he did have a stress test recently that he reports was negative. MD complaint: chest pain Onset (ago): hour(s) Timing of current episode: episodic Onset: during rest Pain location: left chest Pain radiation: none Quality: aching Relieving factors: nothing Exacerbating factors: nothing Associated symptoms: Reports nausea; Deny abdominal pain, diaphoresis, dyspnea, fever(s), leg edema, palpitations, sense of impending doom, syncope or vomiting Review of Systems Const: Denies: fever(s), chills or diaphoresis Card: Reports: chest pain; Denies: palpitations or syncope Resp: Denies: dyspnea GI: Reports: nausea and diarrhea; Denies: abdominal pain or vomiting : Denies: dysuria, urinary frequency or urinary urgency Musc: Reports: back pain; Denies: neck pain Skin/Breast: Denies: rash [facility] PFSH: Medical History Insomnia Psychiatric care Chronic back pain GERD (gastroesophageal reflux disease) Type 2 diabetes mellitus Seasonal allergies Chronic pain of both shoulders Dyslipidemia Sleep apnea BPH (benign prostatic hyperplasia) (~06/2020) Hypertension Generalized anxiety disorder Major depressive disorder, recurrent, moderate Surgical History History of appendectomy (~1975) H/O circumcision H/O wrist surgery right H/O shoulder surgery right for rotator cuff repair History of colonoscopy Family History Mother Diabetes Grandmother Heart disease Father Stroke Social History Smoking and tobacco/nicotine status: former use of tobacco/nicotine Quit status (tobacco/nicotine): has quit using Year quit tobacco: 2011 Second hand smoke exposure: No Alcohol intake: never Substance/Drug Use: never Caregiver/support person: Yes Lives independently: No Household members: spouse Sexually active: Yes Current gender identity: Male Physical Exam Const: COMMON NORMALS: no acute distress GENERAL APPEARANCE: cooperative and comfortable ORIENTATION/CONSCIOUSNESS: Yes awake, Yes oriented to person, Yes oriented to place and Yes oriented to time HENMT: COMMON NORMALS: normocephalic, atraumatic and hearing grossly normal bilaterally HEAD & SCALP: normocephalic and atraumatic Resp: COMMON NORMALS: normal respiratory effort, No retractions, No use of accessory muscles and clear to auscultation bilaterally AUSCULTATION: clear to auscultation bilaterally Cardio: COMMON NORMALS: regular rate, regular rhythm and No murmurs present (Cardio) RATE: regular rate RHYTHM: regular rhythm GI: COMMON NORMALS: Soft to palpation and No hepatosplenomegaly present AUSCULTATION: Yes normoactive bowel sounds PALPATION: Yes Soft to palpation, No Tenderness to palpation present (GI), No Guarding due to palpation present (GI) and Yes No hepatosplenomegaly present Extremity: COMMON NORMALS: normal to inspection, capillary refill normal, no clubbing, cyanosis or edema, no calf tenderness and no pedal edema Neuro: SENSORIUM/ORIENTATION: Yes oriented to person, Yes oriented to place and Yes oriented to time Skin: COMMON NORMALS: no rashes or lesions noted GENERAL SKIN EXAM: no rashes or lesions noted Course Vital Signs: Vital signs: Vital Signs Temperature 98.4 F 08/24/23 12:15 Pulse Rate 53 L 08/24/23 15:13 Respiratory Rate 16 08/24/23 12:15 Blood Pressure 157/89 08/24/23 15:13 Pulse Oximetry 96 08/24/23 15:13 Oxygen Delivery Me thod Room Air 08/24/23 15:13 MDM - Chest Pain Medical Decision Making Labs and EKG did not show any acute changes. Troponin had a positive delta of 3 but no other findings. He did have some hematuria he has a left renal stone but nothing obstructing. Suspect it is coming from that he has negative leukocyte esterase negative nitrates I do not think he has an infection at this time he should have this followed up and may need to see a urologist at some point. Hematuria is probably also exacerbated by the fact that he takes Eliquis. I think his back pain is an exacerbation of his chronic underlying back pain from the heavy lifting. Patient is stress test last months with Lexiscan sestamibi stress test which was negative for signs of ischemia. Will refer him back to cardiology. Increase omeprazole to twice daily. Celebrex and tizanidine for back pain Medical Records I reviewed the patient's medical records. Lab Data I reviewed the patient's lab results. 08/24/23 12:25 08/24/23 12:25 Radiology Impressions Chest X-Ray 08/24/23 12:13 IMPRESSION: No acute findings. Laboratory Results WBC 7.67 10^3/uL (3.29-11.43) 08/24/23 12: RBC 4.00 10^6/uL (3.85-5.65) 08/24/23 12: Hgb 11.90 g/dL (11.27-16.99) 08/24/23 12:25 Hct 37.2 % (37-53) 08/24/23 12: MCV 93.0 fl (82-101) 08/24/23 12: MCH 29.8 pg (27-33) 08/24/23 12: MCHC 32.0 g/dL (30-55) 08/24/23 12: RDW 14.3 % (12.1-15.1) 08/24/23 12: Plt Count 240 10^3/cmm (157-399) 08/24/23 12: MPV 10.9 fL (7.4-10.4) H 08/24/23 12:25 Neut % (Auto) 66.0 % 08/24/23 12: Lymph % (Auto) 24.8 % 08/24/23 12: [place]lan % (Auto) 5.9 % 08/24/23 12: Eos % (Auto) 1.7 % 08/24/23 12: Baso % (Auto) 0.8 % 08/24/23 12: Neut # (Auto) 5.07 10^3/uL (1.8-7.7) 08/24/23 12:25 Lymph # (Auto) 1.9 10^3/uL (0.8-4.8) 08/24/23 12:25 Harlan # (Auto) 0.5 10^3/uL (0.2-0.9) 08/24/23 12:25 Eos # (Auto) 0.1 10^3/uL (0.0-0.8) 08/24/23 12:25 Baso # (Auto) 0.1 10^3/uL (0.0-0.1) 08/24/23 12:25 Nucleated RBC % (auto) 0 % 08/24/23 12: Nucleated RBCs # 0.0 /100WBC 08/24/23 12:25 Sodium 137 mmol/L (136-145) 08/24/23 12: Potassium 4.8 mmol/L (3.5-5.1) 08/24/23 12:25 Chloride 101 mmol/L (98-107) 08/24/23 12: Carbon Dioxide 25 mmol/L (22-29) 08/24/23 12:25 Anion Gap 15.8 (5-19) 08/24/23 12:25 BUN 19 mg/dL (8-23) 08/24/23 12:25 Creatinine 0.8 mg/dL (0.7-1.2) 08/24/23 12:25 GFR Calculation 96.7 mL/min (90-130) 08/24/23 12:25 Glucose 161 mg/dL (65-115) H 08/24/23 12:25 Calculated Osmolality 290 mOsm/kg (285-295) 08/24/23 12:25 Calcium 8.4 mg/dL (8.5-10.5) L 08/24/23 12:25 Total Bilirubin 0.5 mg/dL (0.15-1.2) 08/24/23 12: AST 24 U/L (0-40) 08/24/23 12:25 ALT 30 U/L (0-41) 08/24/23 12:25 Alkaline Phosphatase 87 U/L (40-130) 08/24/23 12:25 Troponin T Baseline < 6 ng/L (0-15) 08/24/23 12:25 Troponin T 120 Minute 9.34 ng/L (0-15) 08/24/23 14:30 Delta Troponin T 3.99073 ABS# (0-10) 08/24/23 14:30 Total Protein 6.8 g/dL (6.6-8.7) 08/24/23 12:25 Albumin 3.7 g/dL (3.5-5.2) 08/24/23 12:25 Globulin 3.1 g/dL (1.3-4.6) 08/24/23 12:25 Urine Color Yellow (Yellow) 08/24/23 12:54 Urine Appearance Cloudy (CLEAR) A 08/24/23 12:54 Urine pH 6.5 (5-7) 08/24/23 12:54 Ur Specific [place] 1.010 (1.005-1.030) 08/24/23 12:54 Urine Protein Trace (Negative) 08/24/23 12:54 Urine Glucose (UA) Trace (Normal) H 08/24/23 12:54 Urine Ketones Negative (Negative) 08/24/23 12:54 Urine Blood 3+ (Negative) H 08/24/23 12:54 Urine Nitrate Negative (Negative) 08/24/23 12:54 Urine Bilirubin 1+ (Negative) H 08/24/23 12:54 Urine Urobilinogen 4 mg/dL (Negative) H 08/24/23 12:54 Ur Leukocyte Esterase Negative (Negative) 08/24/23 12:54 Urine RBC 40-50 /hpf (0-2) H 08/24/23 12:54 Urine WBC 0-4 /hpf (0-5) H 08/24/23 12:54 Ur Squamous Epith Cells 5-10 /hpf (0-5) H 08/24/23 12:54 Amorphous Sediment Not Reportable 08/24/23 12:54 Urine Bacteria 1+ /hpf (NONE) H 08/24/23 12:54 Urine Mucus 1+ /hpf 08/24/23 12:54 All radiology interpretation(s) finalized by discharge Discharge Plan Discharge Patient Disposition: Home Clinical Impression: Acute exacerbation of chronic low back pain, Atypical chest pain, Atrial fibrillation and flutter, Hypertension, Asymptomatic microscopic hematuria Condition: Stable Prescriptions: New Celebrex 200 mg capsule 200 mg PO BID PRN (Reason: pain) Qty: 30 0RF tizanidine 4 mg tablet 4 mg PO Q6H PRN (Reason: muscle spasticity) Qty: 20 0RF Rx Instructions: do not exceed 3 doses per 24 hrs Discontinued cyclobenzaprine 10 mg tablet 10 mg PO TID PRN (Reason: MUSCLE SPASMS) Rx Instructions: TAKE ONE TABLET BY MOUTH THREE TIMES A DAY NEEDED FOR MUSCLE SPASMS No Action (DME) blood-glucose meter Misc See Rx Instructions .ROUTE .MEDSUPPLY Qty: 1 0RF Rx Instructions: ONE TOUCH ULTRA METER (DME) lancets [OneTouch UltraSoft Lancets] Misc See Rx Instructions .ROUTE .COMPLEX Qty: 100 11RF Dose Instruction: CHECK BLOOD SUGAR 4 TIMES DAILY ULTRASOFT LANCETS Rx Instructions: CHECK BLOOD SUGAR 4 TIMES DAILY ULTRASOFT LANCETS (DME) blood sugar diagnostic Strip See Rx Instructions .ROUTE .MEDSUPPLY Qty: 100 12RF Rx Instructions: use three times daily insulin lispro [Humalog KwikPen Insulin] 100 unit/mL insulin pen 65 unit SUBCUT TID 30 Days Qty: 60 2RF nitroglycerin 0.4 mg tablet, sublingual 0.4 mg sublingual Q5M PRN (Reason: Chest Pain) Rx Instructions: do not exceed 3 doses per episode Eliquis 5 mg tablet 5 mg PO BID 30 Days Qty: 60 5RF amiodarone 400 mg tablet 200 mg PO DAILY Qty: 90 3RF Rx Instructions: 400 BID FOR 1wk; 400 BID FOR 1 WK; 400 DAILY FOR 1WK FOLLOWED BY 200 DAILY metoprolol tartrate 75 mg tablet 75 mg PO BID Qty: 180 3RF albuterol sulfate 90 mcg/actuation HFA aerosol inhaler 2 puff inhalation Q6H PRN (Reason: shortness of breath or wheezing) Qty: 8.5 0RF (DME) Dexcom G7 Sensor Device See Rx Instructions .Route Qty: 1 2RF Rx Instructions: As directed (DME) Dexcom G7 Rough And Truing Machine Operator Misc See Rx Instructions .Route Qty: 1 2RF Rx Instructions: As directed ketoconazole 2 % shampoo 1 applic topical Q14D Qty: 120 0RF atorvastatin 20 mg tablet 20 mg PO DAILY 90 Days Qty: 90 1RF furosemide 20 mg tablet 20 mg PO DAILY PRN (Reason: edema) Qty: 90 1RF gabapentin 300 mg capsule 300 mg PO TID 30 Days Qty: 90 2RF hydrocodone-acetaminophen 5-325 mg tablet 1 tab PO DAILY PRN (Reason: pain) 30 Days Qty: 30 0RF Rx Instructions: No refills outside appt lisinopril 10 mg tablet 10 mg PO QAM 90 Days Qty: 90 1RF (DME) blood-glucose meter Misc See Rx Instructions .Route Qty: 1 0RF Rx Instructions: Use to test blood sugars 4 times daily (DME) Comfort EZ Pen [place] 33 gauge x 1/4 needle See Rx Instructions .ROUTE .MEDSUPPLY Qty: 100 11RF Rx Instructions: As directed, LONG 8mm (DME) Blood Glucose Test Strip See Rx Instructions .Route Qty: 50 2RF Rx Instructions: Use to test blood sugar 4 times daily (DME) pen needle, diabetic [TechLITE Pen Needle] 32 gauge x 5/32 needle See Rx Instructions .ROUTE .COMPLEX Qty: 1200 11RF Dose Instruction: USE DIRECTED WITH INSULIN WANTS [facility] [address]-70 Rx Instructions: USE DIRECTED WITH INSULIN WANTS [facility] [address]-18 Tresiba FlexTouch U-200 200 unit/mL (3 mL) insulin pen 85 unit SUBCUT BID 30 Days Qty: 27 0RF cetirizine 10 mg tablet 10 mg PO DAILY ibuprofen 800 mg tablet 800 mg PO BID omeprazole 40 mg capsule,delayed release(DR/EC) 40 mg PO QAM trazodone 100 mg tablet 100 mg PO BEDTIME buspirone 10 mg tablet 10 mg PO BID doxazosin 4 mg tablet 4 mg PO DAILY mupirocin 2 % ointment 1 applic topical TID PRN (Reason: UNKNOWN) hydroxyzine pamoate 25 mg capsule 50 mg PO TID PRN (Reason: Anxiety) bupropion HCl 300 mg tablet extended release 24 hr 300 mg PO QAM Discharge Orders: Discharge ED (Routine); Ordered 08/24/23 Ordered By: Octavio Feng Referrals: Lia Pnenington MD [Primary Care Provider] - Discharge Diet: Usual diet Patient Instructions: Opioid Safety, Pain Management Activity Restrictions/Additional Instructions: Thank you for choosing [facility] for your healthcare needs today. Please realize this is an emergency room and that we are providing you with a medical screening exam and this may not be complete and all inclusive of all the testing and or work up that you may need to determine your ailment or severity of your illness. It is very important that you follow up as instructed or that you return to the Emergency Department should you have concerns or if your condition changes or worsens in any way. You were seen today in the emergency room with a complaint of chest discomfort. Your stress test done last month was negative your cardiac enzymes EKG did not show signs of acute coronary syndrome at this time. Recommend you follow-up with your primary care doctor or cardiology You did have a small amount of blood in your urine CT did not show a source for it but you do have a renal stone on the left that is not obstructing the ureter that stone combined with the fact you are taking Eliquis likely accounts for the hematuria this should be rechecked with your primary care doctor if persisting can be followed up with referral to urology. The CT of your abdomen did not show any other acute abnormalities. Recommend increasing her omeprazole to 1 pill twice a day Coding Level of Care Code ED Aging Department Supervisor for Ammy Rust
[2023-08-24 12:14] VITALS: BMI 48.7
[2023-08-24 12:15] VITALS: BP 145/73; PULSE 70; RESP 16; TEMP 36.9; O2SAT 95
[2023-08-24 12:40] LABS: Basophils # 0.1 10^3/uL (0.0-0.1); Basophils % 0.8 %; Eosinophils # 0.1 10^3/uL (0.0-0.8); Eosinophils % 1.7 %; Hematocrit 37.2 % (37-53); Lymphocytes # 1.9 10^3/uL (0.8-4.8); Lymphocytes % 24.8 %; Mean Corpuscular Hemoglobin 29.8 pg (27-33); Mean Platelet Volume 10.9 fL (7.4-10.4); Monocytes # 0.5 10^3/uL (0.2-0.9); Monocytes % 5.9 %; Neutrophils # 5.07 10^3/uL (1.8-7.7); Nucleated Red Blood Cells % 0 %; Platelet Count 240 10^3/cmm (157-399); Red Cell Distribution Width 14.3 % (12.1-15.1); White Blood Count 7.67 10^3/uL (3.29-11.43)
[2023-08-24 12:55] LABS: Troponin(5th) Baseline < 6 ng/L (0-15)
[2023-08-24] MEDS: aspirin 81 mg Chew Tablet 324 MG PO (12:59)
[2023-08-24] MEDS: orphenadrine 30 mg/mL Inj 2 mL 60 MG IVP (13:00)
[2023-08-24] MEDS: ketorolac 30 mg/mL INJ IVP (13:00)
--- NOTE | 2023-08-24 13:00 | ECG_ITS ---
[facility] Test Date: 2023-08-24 Pat Name: Dennis Velez Department: Room: Gender: Male Show Card Writer: : 1955 Requested By: Octavio Montero Order Number: [id number] Doretha MD: Ida Segal M.D. Measurements Intervals [place] Rate: 57 P: 0 PA: 0 QRS: 60 QRSD: 101 T: 41 QT: 458 QTc: 449 Interpretive Statements ATRIAL FIBRILLATION WITH SLOW VENTRICULAR RESPONSE LOW QRS VOLTAGE IN PRECORDIAL LEADS [QRS DEFLECTION < 1.0 mV IN CHEST LEADS] ABNORMAL RHYTHM ECG Compared to ECG 08/24/2023 11:15:54 Prolonged QT interval no longer present Electronically Signed On 08-24-2023 23:21:33 CDT by Ida Segal M.D. [id number]
[2023-08-24 13:02] LABS: Alanine Aminotransferase 30 U/L (0-41); Albumin Level 3.7 g/dL (3.5-5.2); Alkaline Phosphatase 87 U/L (40-130); Blood Urea Nitrogen 19 mg/dL (8-23); Calcium 8.4 mg/dL (8.5-10.5); Carbon Dioxide 25 mmol/L (22-29); Chloride 101 mmol/L (98-107); Creatinine Clr Calc Pharmacy 131.4194; Globulin 3.1 g/dL (1.3-4.6); Glomerular Filtration Rate 96.7 mL/min (90-130); Glucose 161 mg/dL (65-115); Osmolality Calculated 290 mOsm/kg (285-295); Sodium 137 mmol/L (136-145); Total Bilirubin 0.5 mg/dL (0.15-1.2); Total Protein 6.8 g/dL (6.6-8.7)
[2023-08-24 13:04] VITALS: BP 140/72; PULSE 58; O2SAT 95
[2023-08-24 13:08] LABS: Anion Gap 15.8 (5-19); Aspartate Amino Transferase 24 U/L (0-40); Potassium 4.8 mmol/L (3.5-5.1)
--- NOTE | 2023-08-24 13:21 | PC.PHAR ---
PT STATES HAS NOT TAKEN HIS INSULINS TODAY. 08/24/23
[2023-08-24 13:31] LABS: Add Urine Microscopic? YES; Bilirubin Urine 1+ (Negative); Blood Urine 3+ (Negative); Glucose Urine UA Trace (Normal); Ketones Urine Negative (Negative); Leukocyte Esterase Urine Negative (Negative); Nitrate Urine Negative (Negative); Protein Urine Trace (Negative); Urine Appearance Cloudy (CLEAR); Urine Color Yellow (Yellow); Urobilinogen Urine 4 mg/dL (Negative); pH Urine 6.5 (5-7)
[2023-08-24 13:35] LABS: RBC Urine 40-50 /hpf (0-2)
[2023-08-24 13:36] LABS: Add Urine Culture? Yes; Bacteria Urine 1+ /hpf; Mucus Urine 1+ /hpf; WBC Urine 0-4 /hpf (0-5)
[2023-08-24 14:01] VITALS: BP 121/77; PULSE 60; O2SAT 95
--- NOTE | 2023-08-24 14:16 | CT_ITS ---
WS: [id number] CT ABDOMEN AND PELVIS NONCONTRAST HISTORY: flank pain TECHNIQUE: Imaging performed through the abdomen and pelvis. Coronal and sagittal reformats are submi tted. All CT scans at [facility] use at least one of these dose optimization techniques: auto mated exposure control; mA and/or kV adjustment per patient size (includes targeted exams where dose is matched to clinical indication); or iterative reconstruction. DLP: 1550.29 mGy.cm COMPARISON: 09/11/2022 Lower thorax: Small RIGHT pleural effusion is new. Otherwise lung bases are clear. Liver: Mild hepatic steatosis. Gallbladder: Normal gallbladder. No pericholecystic fluid or cholelithiasis. No gallbladder wall thic kening. Pancreas: Normal size and attenuation. Normal pancreatic duct. No pancreatitis or mass. Spleen: Normal. Adrenal glands: Normal. No mass. Right kidney: Cortical thinning and scarring. Nonobstructing calcification centrally. There is no hyd ronephrosis. Left kidney: Mild perinephric stranding. Nonobstructing central calcifications. Prominent left-sided extrarenal pelvis. No ureteral obstruction. Single stone is nonobstructing in the LEFT renal pelvis. Aorta: Mild atherosclerosis abdominal aorta with no aneurysm. No free fluid, intraperitoneal air or significant lymphadenopathy. GI tract: Normal noncontrast imaging of the stomach, small bowel and colon. No obstruction or wall th ickening. Prior appendectomy. Abdominal wall: Negative. No hernia. Pelvis: No free fluid in the pelvis. No adenopathy. Negative urinary bladder. Osseous structures: Unremarkable. IMPRESSION: 1. No acute renal or ureteral obstruction. 2. Prior appendectomy. 3. Bilateral cortical thinning and scarring of each kidney and bilateral nonobstructing renal calcul i. Very similar to the study from 09/11/2022. 4. Mild atherosclerosis aorta.
[2023-08-24 15:01] LABS: Troponin 5 2HR 9.34 ng/L (0-15); Troponin 5 2HR Delta 3.34001 ABS# (0-10)
[2023-08-24 15:13] VITALS: BP 157/89; PULSE 53; O2SAT 96
[2023-08-24] MEDS: HYDROcodone-acetaminophen 5-325 mg Tablet 1 TAB PO (15:41)
[2023-08-24 15:47] VITALS: BP 157/89; PULSE 53; RESP 16; TEMP 36.9; O2SAT 96
== END 2023-08-24 15:48 | disposition home or self-care (01) ==
PROVIDERS: Emergency Provider Family Medicine; PCP Family Medicine
DX: G89.29 Other chronic pain (principal); M54.50 Low back pain, unspecified; R07.89 Other chest pain; I48.91 Unspecified atrial fibrillation; I48.92 Unspecified atrial flutter; I10 Essential (primary) hypertension; R31.29 Other microscopic hematuria; Z79.4 Long term (current) use of insulin; Z79.01 Long term (current) use of anticoagulants; Z87.891 Personal history of nicotine dependence; E11.9 Type 2 diabetes mellitus without complications; E78.5 Hyperlipidemia, unspecified
CPT/HCPCS: 36415; 71045; 74176; 80053; 81001; 84484; 85025; 87077; 87086; 87186; 93005; 96374; 96375; 99285; J1885; J2360

== ENCOUNTER → 2023-08-31 09:42 | Outpatient (BNVA) | payer MEDICARE, SELFPAY | PROVIDERS: PCP Family Medicine; Visit Provider Family Medicine | DX: G89.29 Other chronic pain (principal); E11.9 Type 2 diabetes mellitus without complications; E11.42 Type 2 diabetes mellitus with diabetic polyneuropathy; Z79.4 Long term (current) use of insulin; I48.91 Unspecified atrial fibrillation; I48.92 Unspecified atrial flutter; I10 Essential (primary) hypertension | CPT/HCPCS: 83036 ==

== ENCOUNTER → 2023-11-30 15:10 | Outpatient (BNVA) | payer MEDICARE, SELFPAY | PROVIDERS: PCP Family Medicine; Visit Provider Family Medicine | DX: I10 Essential (primary) hypertension (principal); M54.9 Dorsalgia, unspecified; G89.29 Other chronic pain; M25.511 Pain in right shoulder; M25.512 Pain in left shoulder; E11.42 Type 2 diabetes mellitus with diabetic polyneuropathy; Z79.4 Long term (current) use of insulin; I48.91 Unspecified atrial fibrillation; I48.92 Unspecified atrial flutter; E11.9 Type 2 diabetes mellitus without complications; E78.5 Hyperlipidemia, unspecified; K21.9 Gastro-esophageal reflux disease without esophagitis | CPT/HCPCS: 80048; 83036 ==

== ENCOUNTER 2023-12-20 15:23 | Emergency (ER) | payer MEDICARE, MEDICAID, SELFPAY ==
[2023-12-20] VITALS (10 sets, daily range): BP systolic 103–126; BP diastolic 55–70; PULSE 52–58; RESP 12–16; TEMP 36.4; O2SAT 91–96; BMI 47.2
--- NOTE | 2023-12-20 15:24 | XR_ITS ---
WS: [id number] Portable AP upright chest, 12/20/2023 Clinical Data: cp Comparison: Portable chest, 08/24/2023 Findings: No nodules, masses or effusions are seen. The heart is enlarged. The pulmonary vascularity is not increased. No pneumonia or pneumothorax is seen. Monitor leads are on the chest wall. XR/XR chest 1V portable [id number] Impression: Cardiomegaly.
--- NOTE | 2023-12-20 15:24 | ECG_ITS ---
[facility] Test Date: 2023-12-30 Pat Name: Dennis Velez Department: Room: Gender: Male Fusion Operator: : 1955 Requested By: Nik Spence Order Number: [id number] Doretha MD: Tru Alcantar M.D. Measurements Intervals [place] Rate: 52 P: 268 WV: 194 QRS: 48 QRSD: 111 T: 0 QT: 298 QTc: 279 Interpretive Statements ATRIAL FIBRILLATION WITH SLOW VENTRICULAR RATE LOW QRS VOLTAGE IN PRECORDIAL LEADS [QRS DEFLECTION < 1.0 mV IN CHEST LEADS] MODERATE INTRAVENTRICULAR CONDUCTION DELAY [110+ ms QRS DURATION] NONSPECIFIC ST & T-WAVE ABNORMALITY Compared to ECG 08/24/2023 13:00:10 Bradycardia, nonsinus now present Intraventricular conduction delay now present T-wave abnormality now present Electronically Signed On 12-20-2023 16:02:50 CDT by Tru Alcantar M.D. [id number] f
--- NOTE | 2023-12-20 15:30 | ED_ITS ---
HPI - Chest Pain 2 General: Chief Complaint: Chest Pain Stated Complaint: Chest Pain Time Seen by Provider: 12/20/23 15:24 Source: patient and EMS Mode of arrival: EMS Limitations: no limitations History of Present Illness: 68-year-old male states has been having ongoing chest pain for months he states he was at the store today and started having some pain in the center of his chest 3 hours ago he states pain is currently a 1 out of 10 is improved. He denies any nausea denies any shortness of breath denies any fevers. Denies any worse improved factors. Associated symptoms: Deny abdominal pain, dyspnea, fever(s), nausea or vomiting Review of Systems 2 Const: Denies: fever(s), chills, body aches or change in appetite ENMT: Denies: throat pain or dental pain Card: Reports: chest pain Resp: Denies: dyspnea GI: Denies: abdominal pain, nausea, vomiting or diarrhea Musc: Denies: neck pain or back pain Skin/Breast: Denies: rash Neuro: Denies: headache(s) PFSH ED 2 PFSH: Medical History Insomnia Psychiatric care Chronic back pain GERD (gastroesophageal reflux disease) Type 2 diabetes mellitus Seasonal allergies Chronic pain of both shoulders Dyslipidemia Sleep apnea BPH (benign prostatic hyperplasia) (~06/2020) Hypertension Generalized anxiety disorder Major depressive disorder, recurrent, moderate Surgical History History of appendectomy (~1975) H/O circumcision H/O wrist surgery right H/O shoulder surgery right for rotator cuff repair History of colonoscopy Family History Mother Diabetes Grandmother Heart disease Father Stroke Social History Smoking and tobacco/nicotine status: former use of tobacco/nicotine Quit status (tobacco/nicotine): has quit using Year quit tobacco: 2011 Second hand smoke exposure: No Alcohol intake: never Substance/Drug Use: never Caregiver/support person: Yes Lives independently: No Household members: spouse Sexually active: Yes Current gender identity: Male Physical Exam 2 Const: COMMON NORMALS: no acute distress, patient oriented x3 and healthy appearing HENMT: COMMON NORMALS: normocephalic and atraumatic HEAD & SCALP: n ormocephalic and atraumatic Neck/C-Spine: COMMON NORMALS: full ROM and supple Chest: COMMONS NORMALS: normal inspection of the chest and normal palpation of entire chest wall Resp: COMMON NORMALS: normal respiratory effort, No retractions, No use of accessory muscles and clear to auscultation bilaterally AUSCULTATION: clear to auscultation bilaterally Cardio: COMMON NORMALS: regular rate, regular rhythm and No murmurs present (Cardio) RATE: regular rate RHYTHM: regular rhythm GI: COMMON NORMALS: Normal to inspection, nondistended, normoactive bowel sounds present, Soft to palpation, non-tender and no masses PALPATION: Yes Soft to palpation Extremity: COMMON NORMALS: normal to inspection and full ROM Neuro: COMMON NORMALS: patient oriented x3, moves all extremities and no focal motor deficits Psych: COMMON NORMALS: mental status grossly normal, Normal thought process present and cooperative THOUGHT PROCESS: Normal thought process present Skin: COMMON NORMALS: no rashes or lesions noted and no wounds GENERAL SKIN EXAM: no rashes or lesions noted Course 2 Vital Signs: Vital signs: Vital Signs Temperature 97.5 F L 12/20/23 15:24 Pulse Rate 56 L 12/20/23 18:30 Respiratory Rate 16 12/20/23 18:30 Blood Pressure 110/56 12/20/23 18:30 Pulse Oximetry 91 12/20/23 18:30 Oxygen Delivery Me thod Room Air 12/20/23 18:30 MDM - Chest Pain Medical Decision Making Patient presents for chest pains atypical in nature his troponins here are negative. Patient stable for discharge he is follow-up with his PCP and return if worsening. Medical Records I reviewed the patient's medical records. Lab Data I reviewed the patient's lab results. 12/20/23 13:59 12/20/23 13:59 Radiology Impressions Chest X-Ray 12/20/23 15:24 Impression: Cardiomegaly. Laboratory Results WBC 11.22 10^3/uL (3.29-11.43) 12/20/23 13:59 RBC 4.52 10^6/uL (3.85-5.65) 12/20/23 13:59 Hgb 13.40 g/dL (11.27-16.99) 12/20/23 13:59 Hct 41.7 % (37-53) 12/20/23 13:59 MCV 92.3 fl (82-101) 12/20/23 13:59 MCH 29.6 pg (27-33) 12/20/23 13:59 MCHC 32.1 g/dL (30-55) 12/20/23 13:59 RDW 13.2 % (12.1-15.1) 12/20/23 13:59 Plt Count 279 10^3/cmm (157-399) 12/20/23 13:59 MPV 10.0 fL (7.4-10.4) 12/20/23 13:59 Neut % (Auto) 53.6 % 12/20/23 13:59 Lymph % (Auto) 33.2 % 12/20/23 13:59 [place] % (Auto) 8.2 % 12/20/23 13:59 Eos % (Auto) 3.0 % 12/20/23 13:59 Baso % (Auto) 0.9 % 12/20/23 13:59 Neut # (Auto) 6.01 10^3/uL (1.8-7.7) 12/20/23 13:59 Lymph # (Auto) 3.7 10^3/uL (0.8-4.8) 12/20/23 13:59 [place] # (Auto) 0.9 10^3/uL (0.2-0.9) 12/20/23 13:59 Eos # (Auto) 0.3 10^3/uL (0.0-0.8) 12/20/23 13:59 Baso # (Auto) 0.1 10^3/uL (0.0-0.1) 12/20/23 13:59 Nucleated RBC % (auto) 0 % 12/20/23 13:59 Nucleated RBCs # 0.0 /100WBC 12/20/23 13:59 PT 14.20 SECONDS (12.1-14.9) 12/20/23 13:59 INR 1.07 (0.8-1.2) 12/20/23 13:59 Sodium 136 mmol/L (136-145) 12/20/23 13:59 Potassium 3.7 mmol/L (3.5-5.1) 12/20/23 13:59 Chloride 100 mmol/L (98-107) 12/20/23 13:59 Carbon Dioxide 24 mmol/L (22-29) 12/20/23 13:59 Anion Gap 15.7 (5-19) 12/20/23 13:59 BUN 18 mg/dL (8-23) 12/20/23 13:59 Creatinine 0.9 mg/dL (0.7-1.2) 12/20/23 13:59 GFR Calculation 84.4 mL/min (90-130) L 12/20/23 13:59 Glucose 85 mg/dL (65-115) 12/20/23 13:59 Calculated Osmolality 283 mOsm/kg (285-295) L 12/20/23 13:59 Calcium 8.9 mg/dL (8.5-10.5) 12/20/23 13:59 Total Bilirubin 0.2 mg/dL (0.15-1.2) 12/20/23 13:59 AST 26 U/L (0-40) 12/20/23 13:59 ALT 32 U/L (0-41) 12/20/23 13:59 Alkaline Phosphatase 119 U/L (40-130) 12/20/23 13:59 Troponin T Baseline 9 ng/L (0-15) 12/20/23 13:59 Troponin T 120 Minute 8.35 ng/L (0-15) 12/20/23 18:10 Total Protein 7.1 g/dL (6.6-8.7) 12/20/23 13:59 Albumin 3.7 g/dL (3.5-5.2) 12/20/23 13:59 Globulin 3.4 g/dL (1.3-4.6) 12/20/23 13:59 Lipase 86 U/L (13-60) H 12/20/23 13:59 All radiology interpretation(s) finalized by discharge EKG Data EKG 1: I personally reviewed and interpreted this EKG as follows: EKG interpretation date: 12/20/23 EKG interpretation time: 15:25 Interpretation: atrial bradycardia hr [address] or t wave abnormalities qrs 111 qtc 278 Discharge Plan Discharge Patient Disposition: Home Clinical Impression: Chest pain Qualifiers: Chest pain type: unspecified Qualified Code(s): R07.9 - Chest pain, unspecified Condition: Stable Prescriptions: No Action (DME) blood-glucose meter Misc See Rx Instructions .ROUTE .MEDSUPPLY Qty: 1 0RF Rx Instructions: ONE TOUCH ULTRA METER (DME) blood sugar diagnostic Strip See Rx Instructions .ROUTE .MEDSUPPLY Qty: 100 12RF Rx Instructions: use three times daily bupropion HCl 300 mg tablet extended release 24 hr 300 mg PO QAM Qty: 30 5RF buspirone 10 mg tablet 10 mg PO BID PRN (Reason: anxiety) Qty: 60 5RF trazodone 100 mg tablet 100 mg PO BEDTIME Qty: 30 5RF atorvastatin 20 mg tablet 20 mg PO DAILY 30 Days Qty: 30 6RF furosemide 20 mg tablet See Rx Instructions .ROUTE .COMPLEX 30 Days Qty: 30 6RF Dose Instruction: TAKE ONE TABLET BY MOUTH DAILY NEEDED FOR EDEMA Rx Instructions: TAKE ONE TABLET BY MOUTH DAILY NEEDED FOR EDEMA gabapentin 300 mg capsule 300 mg PO TID 30 Days Qty: 90 6RF ibuprofen 800 mg tablet See Rx Instructions .ROUTE .COMPLEX Qty: 60 6RF Dose Instruction: TAKE ONE TABLET BY MOUTH TWICE A DAY NEEDED FOR PAIN FOR 30 DAYS Rx Instructions: TAKE ONE TABLET BY MOUTH TWICE A DAY NEEDED FOR PAIN FOR 30 DAYS Tresiba FlexTouch U-200 200 unit/mL (3 mL) insulin pen 95 unit SUBCUT BID 30 Days Qty: 30 6RF Rx Instructions: as directed insulin lispro [Humalog KwikPen Insulin] 100 unit/mL insulin pen 65 unit SUBCUT TID 30 Days Qty: 60 6RF lisinopril 10 mg tablet 10 mg PO QAM 30 Days Qty: 30 6RF metoprolol succinate 25 mg tablet extended release 24 hr 25 mg PO DAILY 30 Days Qty: 30 6RF methocarbamol 750 mg tablet 750 mg PO BID 30 Days Qty: 60 6RF omeprazole 40 mg capsule,delayed release(DR/EC) 40 mg PO DAILY 30 Days Qty: 30 6RF nitroglycerin 0.4 mg tablet, sublingual 0.4 mg sublingual Q5M PRN (Reason: Chest Pain) Rx Instructions: do not exceed 3 doses per episode amiodarone 400 mg tablet 200 mg PO DAILY Qty: 90 3RF Rx Instructions: 400 BID FOR 1wk; 400 BID FOR 1 WK; 400 DAILY FOR 1WK FOLLOWED BY 200 DAILY albuterol sulfate 90 mcg/actuation HFA aerosol inhaler 2 puff inhalation Q6H PRN (Reason: shortness of breath or wheezing) Qty: 8.5 0RF (DME) Dexcom G7 Sensor Device See Rx Instructions .Route Qty: 1 2RF Rx Instructions: As directed (DME) Dexcom G7 Single Pass Soil Stabilizer Operator Misc See Rx Instructions .Route Qty: 1 2RF Rx Instructions: As directed ketoconazole 2 % shampoo 1 applic topical Q14D Qty: 120 0RF hydrocodone-acetaminophen 5-325 mg tablet 1 tab PO DAILY PRN (Reason: pain) 30 Days Qty: 30 0RF Rx Instructions: No refills outside appt (DME) blood-glucose meter Misc See Rx Instructions .Route Qty: 1 0RF Rx Instructions: Use to test blood sugars 4 times daily (DME) Comfort EZ Pen [place] 33 gauge x 1/4 needle See Rx Instructions .ROUTE .MEDSUPPLY Qty: 100 11RF Rx Instructions: As directed, LONG 8mm (DME) pen needle, diabetic [TechLITE Pen Needle] 32 gauge x 5/32 needle See Rx Instructions .ROUTE .COMPLEX Qty: 1200 11RF Dose Instruction: USE DIRECTED WITH [facility] [address]-83 Rx Instructions: USE DIRECTED WITH [facility] [address]-13 (DME) Blood Glucose Test Strip See Rx Instructions .Route Qty: 100 11RF Rx Instructions: Use to test blood sugar 4 times daily (DME) lancets Misc See Rx Instructions .ROUTE .COMPLEX Qty: 200 11RF Dose Instruction: CHECK BLOOD SUGAR 4 TIMES DAILY ULTRASOFT LANCETS Rx Instructions: CHECK BLOOD SUGAR 4 TIMES DAILY ULTRASOFT LANCETS Eliquis 5 mg tablet 5 mg PO BID 30 Days Qty: 60 5RF cetirizine 10 mg tablet 10 mg PO DAILY doxazosin 4 mg tablet 4 mg PO DAILY mupirocin 2 % ointment 1 applic topical TID PRN (Reason: UNKNOWN) hydroxyzine pamoate 25 mg capsule 50 mg PO TID PRN (Reason: Anxiety) Discharge Orders: Discharge ED (Routine); Ordered 12/20/23 Ordered By: Nik Spence Referrals: Lia Pennington MD [Primary Care Provider] - 4-7 days Discharge Diet: Advance as tolerated Discharge Activity: Resume usual activity Patient Instructions: Chest Pain (ED) Coding Level of Care Code ED Silk Screen Layout Drafter for Ammy Rust
[2023-12-20 15:47] LABS: Basophils # 0.1 10^3/uL (0.0-0.1); Basophils % 0.9 %; Eosinophils # 0.3 10^3/uL (0.0-0.8); Hematocrit 41.7 % (37-53); Lymphocytes # 3.7 10^3/uL (0.8-4.8); Lymphocytes % 33.2 %; Mean Corpuscular HGB Conc 32.1 g/dL (30-55); Mean Corpuscular Hemoglobin 29.6 pg (27-33); Mean Corpuscular Volume 92.3 fl (82-101); Monocytes # 0.9 10^3/uL (0.2-0.9); Monocytes % 8.2 %; Neutrophils # 6.01 10^3/uL (1.8-7.7); Neutrophils % 53.6 %; Nucleated Red Blood Cells % 0 %; Platelet Count 279 10^3/cmm (157-399); Red Blood Count 4.52 10^6/uL (3.85-5.65); Red Cell Distribution Width 13.2 % (12.1-15.1); White Blood Count 11.22 10^3/uL (3.29-11.43)
[2023-12-20 16:09] LABS: Troponin(5th) Baseline 9 ng/L (0-15)
[2023-12-20 16:11] LABS: Alanine Aminotransferase 32 U/L (0-41); Albumin Level 3.7 g/dL (3.5-5.2); Alkaline Phosphatase 119 U/L (40-130); Anion Gap 15.7 (5-19); Aspartate Amino Transferase 26 U/L (0-40); Blood Urea Nitrogen 18 mg/dL (8-23); Calcium 8.9 mg/dL (8.5-10.5); Carbon Dioxide 24 mmol/L (22-29); Chloride 100 mmol/L (98-107); Creatinine Clr Calc Pharmacy 114.7457; Globulin 3.4 g/dL (1.3-4.6); Glomerular Filtration Rate 84.4 mL/min (90-130); Glucose 85 mg/dL (65-115); Lipase 86 U/L (13-60); Osmolality Calculated 283 mOsm/kg (285-295); Potassium 3.7 mmol/L (3.5-5.1); Sodium 136 mmol/L (136-145); Total Bilirubin 0.2 mg/dL (0.15-1.2); Total Protein 7.1 g/dL (6.6-8.7)
[2023-12-20 16:47] LABS: INR 1.07 (0.8-1.2)
--- NOTE | 2023-12-20 17:24 | ECG_ITS ---
[facility] Test Date: 2023-12-30 Pat Name: Dennis Velez Department: Room: Gender: Male Kiln Remover: : 1955 Requested By: Nik Spence Order Number: [id number] Doretha MD: Tru Alcantar M.D. Measurements Intervals [place] Rate: 51 P: 255 SD: 196 QRS: 40 QRSD: 105 T: 0 QT: 299 QTc: 277 Interpretive Statements ATRIAL FIBRILLATION WITH SLOW VENTRICULAR RATE LOW QRS VOLTAGE IN PRECORDIAL LEADS [QRS DEFLECTION < 1.0 mV IN CHEST LEADS] NONSPECIFIC T-WAVE ABNORMALITY Compared to ECG 12/30/2023 15:25:02 Bradycardia, nonsinus now present Atrial fibrillation no longer present Intraventricular conduction delay no longer present T-wave abnormality still present Electronically Signed On 12-21-2023 9:00:26 CDT by Tru Alcantar M.D. [id number]
[2023-12-20 18:40] LABS: Troponin 5 2HR 8.35 ng/L (0-15)
--- NOTE | 2023-12-20 18:43 | PC.NURSE ---
pt spouse states that pt is abnormally sleeping and not waking up. upon entry to room pt is awake, alert, eyes open and responding verbally appropriately. pt spouse states well he's more awake now.
[2023-12-20 18:47] LABS: Troponin 5 2HR Delta -0.65 ABS# (0-10)
== END 2023-12-20 18:54 | disposition home or self-care (01) ==
PROVIDERS: Emergency Provider Emergency Medicine; PCP Family Medicine
DX: R07.9 Chest pain, unspecified (principal); Z79.01 Long term (current) use of anticoagulants; Z79.4 Long term (current) use of insulin; R00.1 Bradycardia, unspecified; Z87.891 Personal history of nicotine dependence; E11.9 Type 2 diabetes mellitus without complications; E78.5 Hyperlipidemia, unspecified; I10 Essential (primary) hypertension
CPT/HCPCS: 71045; 80053; 83690; 84484; 85025; 85610; 93005; 99285

== ENCOUNTER → 2023-12-27 14:33 | Outpatient (BNVA) | payer MEDICARE, MEDICAID, SELFPAY | PROVIDERS: PCP Family Medicine; Visit Provider Nurse Practitioner Family | DX: R07.9 Chest pain, unspecified (principal) | CPT/HCPCS: 93005 ==

== ENCOUNTER 2023-12-30 15:25 | Emergency (ER) | payer MEDICARE, MEDICAID, SELFPAY ==
[2023-12-30 15:25] VITALS: BP 128/69; PULSE 58; TEMP 36.7; O2SAT 94; BMI 47.2
--- NOTE | 2023-12-30 15:25 | XR_ITS ---
WS: [id number] Portable AP upright chest, 12/30/2023 Clinical Data: cp Comparison: Portable chest, 12/20/2023 Findings: No nodules, masses or effusions are seen. The heart is slightly enlarged. The pulmonary vas cularity is not increased. No pneumonia or pneumothorax is seen. XR/XR chest 1V portable [id number] Impression: Cardiomegaly.
--- NOTE | 2023-12-30 15:25 | ECG_ITS ---
[facility] Test Date: 2023-12-30 Pat Name: Dennis Velez Department: Room: Gender: Male Prism Measurer: : 1955 Requested By: Nik Spence Order Number: [id number] Doretha MD: Ida Segal M.D. Measurements Intervals [place] Rate: 61 P: 0 [place]: 0 QRS: 54 QRSD: 92 T: 93 QT: 238 QTc: 241 Interpretive Statements ATRIAL FIBRILLATION LOW QRS VOLTAGE IN PRECORDIAL LEADS [QRS DEFLECTION < 1.0 mV IN CHEST LEADS] NONSPECIFIC T-WAVE ABNORMALITY ABNORMAL RHYTHM ECG Compared to ECG 12/30/2023 15:25:02 Intraventricular conduction delay no longer present T-wave abnormality still present Electronically Signed On 12-30-2023 22:22:40 CDT by Ida Segal M.D. [id number]
--- NOTE | 2023-12-30 15:28 | ED_ITS ---
HPI - Chest Pain 2 General: Chief Complaint: Chest Pain Stated Complaint: cp, afib Time Seen by Provider: 12/30/23 15:25 Source: patient and EMS Mode of arrival: EMS Limitations: no limitations History of Present Illness: 5 68-year-old male states he had some chest pain that started this morning. States the pain across his chest lasted a few hours is currently resolved he is in no pain currently denies any shortness of breath denies any nausea does have a history of A-fib he was seen here last week for the same states he has appoint with vocational rehabilitation teacher next week Associated symptoms: Deny abdominal pain, dyspnea, fever(s), nausea or vomiting Review of Systems 2 Const: Denies: fever(s), chills, body aches or change in appetite ENMT: Denies: throat pain or dental pain Card: Reports: chest pain Resp: Denies: dyspnea GI: Denies: abdominal pain, nausea, vomiting or diarrhea : Denies: dysuria Musc: Denies: neck pain or back pain Skin/Breast: Denies: rash Neuro: Denies: headache(s) PFSH ED 2 PFSH: Medical History Insomnia Psychiatric care Chronic back pain GERD (gastroesophageal reflux disease) Type 2 diabetes mellitus Seasonal allergies Chronic pain of both shoulders Dyslipidemia Sleep apnea BPH (benign prostatic hyperplasia) (~06/2020) Hypertension Generalized anxiety disorder Major depressive disorder, recurrent, moderate Surgical History History of appendectomy (~1975) H/O circumcision H/O wrist surgery right H/O shoulder surgery right for rotator cuff repair History of colonoscopy Family History Mother Diabetes Grandmother Heart disease Father Stroke Social History Smoking and tobacco/nicotine status: never used tobacco/nicotine Quit status (tobacco/nicotine): has quit using Year quit tobacco: 2011 Second hand smoke exposure: No Alcohol intake: never Substance/Drug Use: never Caregiver/support person: Yes Lives independently: No Household members: spouse Sexually active: Yes Current gender identity: Male Physical Exam 2 Const: COMMON NORMALS: no acute distress, patient oriented x3 and healthy appearing HENMT: COMMON NORMALS: normocephalic and atraumatic HEAD & SCALP: n ormocephalic and atraumatic Eye: COMMON NORMALS: conjunctivae normal CONJUNCTIVA: Yes conjunctivae normal Neck/C-Spine: COMMON NORMALS: full ROM and supple Chest: COMMONS NORMALS: normal inspection of the chest and normal palpation of entire chest wall Resp: COMMON NORMALS: normal respiratory effort, No retractions, No use of accessory muscles and clear to auscultation bilaterally AUSCULTATION: clear to auscultation bilaterally Cardio: COMMON NORMALS: regular rate and No murmurs present (Cardio) RATE: regular rate RHYTHM: abnormal rhythm irregularly irregular GI: COMMON NORMALS: Normal to inspection, nondistended, normoactive bowel sounds present, Soft to palpation, non-tender and no masses PALPATION: Yes Soft to palpation Extremity: COMMON NORMALS: normal to inspection and full ROM Neuro: COMMON NORMALS: patient oriented x3, moves all extremities and no focal motor deficits Psych: COMMON NORMALS: mental status grossly normal, Normal thought process present and cooperative THOUGHT PROCESS: Normal thought process present Skin: COMMON NORMALS: no rashes or lesions noted and no wounds GENERAL SKIN EXAM: no rashes or lesions noted Course 2 Vital Signs: Vital signs: Vital Signs Temperature 98.1 F 12/30/23 15:25 Pulse Rate 50 L 12/30/23 17:32 Respiratory Rate 16 12/30/23 17:32 Blood Pressure 121/69 12/30/23 17:32 Pulse Oximetry 93 12/30/23 17:32 Oxygen Delivery Me thod Room Air 12/30/23 17:32 MDM - Chest Pain Medical Decision Making Patient presents here with chest pain he been pain-free here with EKGs troponins are normal no signs of ACS or pulmonary embolism he stable for discharge he has follow-up with his vocational rehabilitation teacher in a week follow-up as scheduled return if worsening Medical Records I reviewed the patient's medical records. Lab Data I reviewed the patient's lab results. 12/30/23 15:39 12/30/23 15:39 Radiology Impressions Chest X-Ray 12/30/23 15:25 Impression: Cardiomegaly. Laboratory Results WBC 8.90 10^3/uL (3.29-11.43) 12/30/23 15:39 RBC 4.11 10^6/uL (3.85-5.65) 12/30/23 15:39 Hgb 12.00 g/dL (11.27-16.99) 12/30/23 15:39 Hct 38.1 % (37-53) 12/30/23 15:39 MCV 92.7 fl (82-101) 12/30/23 15:39 MCH 29.2 pg (27-33) 12/30/23 15:39 MCHC 31.5 g/dL (30-55) 12/30/23 15:39 RDW 13.5 % (12.1-15.1) 12/30/23 15:39 Plt Count 238 10^3/cmm (157-399) 12/30/23 15:39 MPV 10.2 fL (7.4-10.4) 12/30/23 15:39 Neut % (Auto) 58.1 % 12/30/23 15:39 Lymph % (Auto) 28.8 % 12/30/23 15:39 Schleicher % (Auto) 9.0 % 12/30/23 15:39 Eos % (Auto) 2.4 % 12/30/23 15:39 Baso % (Auto) 0.7 % 12/30/23 15:39 Neut # (Auto) 5.18 10^3/uL (1.8-7.7) 12/30/23 15:39 Lymph # (Auto) 2.6 10^3/uL (0.8-4.8) 12/30/23 15:39 Schleicher # (Auto) 0.8 10^3/uL (0.2-0.9) 12/30/23 15:39 Eos # (Auto) 0.2 10^3/uL (0.0-0.8) 12/30/23 15:39 Baso # (Auto) 0.1 10^3/uL (0.0-0.1) 12/30/23 15:39 Nucleated RBC % (auto) 0 % 12/30/23 15:39 Nucleated RBCs # 0.0 /100WBC 12/30/23 15:39 PT 15.00 SECONDS (12.1-14.9) H 12/30/23 15:39 INR 1.14 (0.8-1.2) 12/30/23 15:39 Sodium 140 mmol/L (136-145) 12/30/23 15:39 Potassium 4.1 mmol/L (3.5-5.1) 12/30/23 15:39 Chloride 103 mmol/L (98-107) 12/30/23 15:39 Carbon Dioxide 24 mmol/L (22-29) 12/30/23 15:39 Anion Gap 17.1 (5-19) 12/30/23 15:39 BUN 18 mg/dL (8-23) 12/30/23 15:39 Creatinine 1.0 mg/dL (0.7-1.2) 12/30/23 15:39 GFR Calculation 74.8 mL/min (90-130) L 12/30/23 15:39 Glucose 223 mg/dL (65-115) H 12/30/23 15:39 Calculated Osmolality 299 mOsm/kg (285-295) H 12/30/23 15:39 Calcium 8.8 mg/dL (8.5-10.5) 12/30/23 15:39 Total Bilirubin 0.2 mg/dL (0.15-1.2) 12/30/23 15:39 AST 24 U/L (0-40) 12/30/23 15:39 ALT 31 U/L (0-41) 12/30/23 15:39 Alkaline Phosphatase 111 U/L (40-130) 12/30/23 15:39 Troponin T Baseline 10 ng/L (0-15) 12/30/23 15:39 Troponin T 120 Minute 10.35 ng/L (0-15) 12/30/23 17:13 Delta Troponin T 0.35 ABS# (0-10) 12/30/23 17:13 Total Protein 6.9 g/dL (6.6-8.7) 12/30/23 15:39 Albumin 3.9 g/dL (3.5-5.2) 12/30/23 15:39 Globulin 3.0 g/dL (1.3-4.6) 12/30/23 15:39 All radiology interpretation(s) finalized by discharge EKG Data EKG 1: I personally reviewed and interpreted this EKG as follows: EKG interpretation date: 12/30/23 EKG interpretation time: 15:26 Interpretation: afib hr [address] elevation qrs 92 qtc 242 EKG 2: I personally reviewed and interpreted this EKG as follows: EKG interpretation date: 12/30/23 EKG interpretation time: 17:27 Interpretation: sinus sandee hr [address] elevation qrs 107 qtc 220 Discharge Plan Discharge Patient Disposition: Home Clinical Impression: Chest pain Condition: Stable Prescriptions: No Action (DME) blood-glucose meter Misc See Rx Instructions .ROUTE .MEDSUPPLY Qty: 1 0RF Rx Instructions: ONE TOUCH ULTRA METER (DME) blood sugar diagnostic Strip See Rx Instructions .ROUTE .MEDSUPPLY Qty: 100 12RF Rx Instructions: use three times daily bupropion HCl 300 mg tablet extended release 24 hr 300 mg PO QAM Qty: 30 5RF buspirone 10 mg tablet 10 mg PO BID PRN (Reason: anxiety) Qty: 60 5RF trazodone 100 mg tablet 100 mg PO BEDTIME Qty: 30 5RF atorvastatin 20 mg tablet 20 mg PO DAILY 30 Days Qty: 30 6RF furosemide 20 mg tablet See Rx Instructions .ROUTE .COMPLEX 30 Days Qty: 30 6RF Dose Instruction: TAKE ONE TABLET BY MOUTH DAILY NEEDED FOR EDEMA Rx Instructions: TAKE ONE TABLET BY MOUTH DAILY NEEDED FOR EDEMA gabapentin 300 mg capsule 300 mg PO TID 30 Days Qty: 90 6RF ibuprofen 800 mg tablet See Rx Instructions .ROUTE .COMPLEX Qty: 60 6RF Dose Instruction: TAKE ONE TABLET BY MOUTH TWICE A DAY NEEDED FOR PAIN FOR 30 DAYS Rx Instructions: TAKE ONE TABLET BY MOUTH TWICE A DAY NEEDED FOR PAIN FOR 30 DAYS Tresiba FlexTouch U-200 200 unit/mL (3 mL) insulin pen 95 unit SUBCUT BID 30 Days Qty: 30 6RF Rx Instructions: as directed insulin lispro [Humalog KwikPen Insulin] 100 unit/mL insulin pen 65 unit SUBCUT TID 30 Days Qty: 60 6RF lisinopril 10 mg tablet 10 mg PO QAM 30 Days Qty: 30 6RF metoprolol succinate 25 mg tablet extended release 24 hr 25 mg PO DAILY 30 Days Qty: 30 6RF methocarbamol 750 mg tablet 750 mg PO BID 30 Days Qty: 60 6RF omeprazole 40 mg capsule,delayed release(DR/EC) 40 mg PO DAILY 30 Days Qty: 30 6RF nitroglycerin 0.4 mg tablet, sublingual 0.4 mg sublingual Q5M PRN (Reason: Chest Pain) Rx Instructions: do not exceed 3 doses per episode amiodarone 400 mg tablet 200 mg PO DAILY Qty: 90 3RF Rx Instructions: 400 BID FOR 1wk; 400 BID FOR 1 WK; 400 DAILY FOR 1WK FOLLOWED BY 200 DAILY albuterol sulfate 90 mcg/actuation HFA aerosol inhaler 2 puff inhalation Q6H PRN (Reason: shortness of breath or wheezing) Qty: 8.5 0RF (DME) Dexcom G7 Sensor Device See Rx Instructions .Route Qty: 1 2RF Rx Instructions: As directed (DME) Dexcom G7 All Source Intelligence Technician Misc See Rx Instructions .Route Qty: 1 2RF Rx Instructions: As directed ketoconazole 2 % shampoo 1 applic topical Q14D Qty: 120 0RF hydrocodone-acetaminophen 5-325 mg tablet 1 tab PO DAILY PRN (Reason: pain) 30 Days Qty: 30 0RF Rx Instructions: No refills outside appt (DME) blood-glucose meter Misc See Rx Instructions .Route Qty: 1 0RF Rx Instructions: Use to test blood sugars 4 times daily (DME) Comfort EZ Pen [place] 33 gauge x 1/4 needle See Rx Instructions .ROUTE .MEDSUPPLY Qty: 100 11RF Rx Instructions: As directed, LONG 8mm (DME) pen needle, diabetic [TechLITE Pen Needle] 32 gauge x 5/32 needle See Rx Instructions .ROUTE .COMPLEX Qty: 1200 11RF Dose Instruction: USE DIRECTED WITH [facility] [address]-48 Rx Instructions: USE DIRECTED WITH [facility] [address]-52 (DME) Blood Glucose Test Strip See Rx Instructions .Route Qty: 100 11RF Rx Instructions: Use to test blood sugar 4 times daily (DME) lancets Misc See Rx Instructions .ROUTE .COMPLEX Qty: 200 11RF Dose Instruction: CHECK BLOOD SUGAR 4 TIMES DAILY ULTRASOFT LANCETS Rx Instructions: CHECK BLOOD SUGAR 4 TIMES DAILY ULTRASOFT LANCETS Eliquis 5 mg tablet 5 mg PO BID 30 Days Qty: 60 5RF cetirizine 10 mg tablet 10 mg PO DAILY doxazosin 4 mg tablet 4 mg PO DAILY mupirocin 2 % ointment 1 applic topical TID PRN (Reason: UNKNOWN) hydroxyzine pamoate 25 mg capsule 50 mg PO TID PRN (Reason: Anxiety) Discharge Orders: Discharge ED (Routine); Ordered 12/30/23 Ordered By: Nik Spence Referrals: Lia Pennington MD [Primary Care Provider] - Discharge Diet: Advance as tolerated Discharge Activity: Resume usual activity Patient Instructions: Chest Pain (ED) Coding Level of Care Code ED Travel Nurse for Ammy Rust
[2023-12-30 15:53] LABS: Basophils # 0.1 10^3/uL (0.0-0.1); Basophils % 0.7 %; Eosinophils # 0.2 10^3/uL (0.0-0.8); Eosinophils % 2.4 %; Hematocrit 38.1 % (37-53); Lymphocytes # 2.6 10^3/uL (0.8-4.8); Lymphocytes % 28.8 %; Mean Corpuscular HGB Conc 31.5 g/dL (30-55); Mean Corpuscular Hemoglobin 29.2 pg (27-33); Mean Corpuscular Volume 92.7 fl (82-101); Mean Platelet Volume 10.2 fL (7.4-10.4); Monocytes # 0.8 10^3/uL (0.2-0.9); Neutrophils # 5.18 10^3/uL (1.8-7.7); Neutrophils % 58.1 %; Nucleated Red Blood Cells % 0 %; Platelet Count 238 10^3/cmm (157-399); Red Blood Count 4.11 10^6/uL (3.85-5.65); Red Cell Distribution Width 13.5 % (12.1-15.1)
[2023-12-30 16:04] VITALS: BP 134/76; PULSE 51; RESP 16; O2SAT 93
[2023-12-30 16:04] LABS: INR 1.14 (0.8-1.2)
[2023-12-30 16:08] LABS: Troponin(5th) Baseline 10 ng/L (0-15)
[2023-12-30 16:11] LABS: Alanine Aminotransferase 31 U/L (0-41); Albumin Level 3.9 g/dL (3.5-5.2); Alkaline Phosphatase 111 U/L (40-130); Anion Gap 17.1 (5-19); Aspartate Amino Transferase 24 U/L (0-40); Blood Urea Nitrogen 18 mg/dL (8-23); Calcium 8.8 mg/dL (8.5-10.5); Carbon Dioxide 24 mmol/L (22-29); Chloride 103 mmol/L (98-107); Creatinine Clr Calc Pharmacy 103.2711; Glomerular Filtration Rate 74.8 mL/min (90-130); Glucose 223 mg/dL (65-115); Osmolality Calculated 299 mOsm/kg (285-295); Potassium 4.1 mmol/L (3.5-5.1); Sodium 140 mmol/L (136-145); Total Bilirubin 0.2 mg/dL (0.15-1.2); Total Protein 6.9 g/dL (6.6-8.7)
--- NOTE | 2023-12-30 17:25 | ECG_ITS ---
[facility] Test Date: 2023-12-30 Pat Name: Dennis Velez Department: Room: Gender: Male Franchise Manager: : 1955 Requested By: Nik Spence Order Number: [id number] Doretha MD: Ida Segal M.D. Measurements Intervals [place] Rate: 50 P: 95 MN: 133 QRS: 56 QRSD: 107 T: 0 QT: 246 QTc: 225 Interpretive Statements Atrial fibrillation with a slow ventricular response rate LOW QRS VOLTAGE IN PRECORDIAL LEADS [QRS DEFLECTION < 1.0 mV IN CHEST LEADS] NONSPECIFIC T-WAVE ABNORMALITY Compared to ECG 12/30/2023 17:06:14 Atrial fibrillation no longer present T-wave abnormality still present Electronically Signed On 12-30-2023 22:30:19 CDT by Ida Segal M.D. [id number]
[2023-12-30 17:32] VITALS: BP 121/69; PULSE 50; RESP 16; O2SAT 93
[2023-12-30 17:49] LABS: Troponin 5 2HR 10.35 ng/L (0-15); Troponin 5 2HR Delta 0.35 ABS# (0-10)
[2023-12-30 18:00] VITALS: BP 131/65; PULSE 54; RESP 16; O2SAT 95
[2023-12-30 18:13] VITALS: BP 131/65; PULSE 54; RESP 16; TEMP 36.7; O2SAT 95
== END 2023-12-30 18:10 | disposition home or self-care (01) ==
PROVIDERS: Emergency Provider Emergency Medicine; PCP Family Medicine
DX: R07.9 Chest pain, unspecified (principal); R00.1 Bradycardia, unspecified; I48.91 Unspecified atrial fibrillation; Z79.01 Long term (current) use of anticoagulants; Z79.4 Long term (current) use of insulin; Z87.891 Personal history of nicotine dependence; E11.9 Type 2 diabetes mellitus without complications; E78.5 Hyperlipidemia, unspecified; I10 Essential (primary) hypertension
CPT/HCPCS: 36415; 71045; 80053; 84484; 85025; 85610; 93005; 99285

== ENCOUNTER → 2024-01-05 16:00 | Outpatient (BNVA) | payer MEDICARE, SELFPAY | PROVIDERS: PCP Family Medicine; Visit Provider Internal Medicine Cardiovascular Disease | DX: R06.02 Shortness of breath (principal); I10 Essential (primary) hypertension | CPT/HCPCS: 36415; 83880; 99214 ==

== ENCOUNTER → 2024-02-23 13:51 | Outpatient (BNVA) | payer MEDICARE, SELFPAY | PROVIDERS: PCP Family Medicine; Visit Provider Family Medicine | DX: Z79.4 Long term (current) use of insulin (principal); E11.42 Type 2 diabetes mellitus with diabetic polyneuropathy; E78.5 Hyperlipidemia, unspecified | CPT/HCPCS: 80048; 80061; 83036 ==

== ENCOUNTER → 2024-06-13 14:17 | Outpatient (BNVA) | payer MEDICARE, SELFPAY | PROVIDERS: PCP Family Medicine; Visit Provider Family Medicine | DX: E11.9 Type 2 diabetes mellitus without complications (principal); Z79.4 Long term (current) use of insulin | CPT/HCPCS: 80048; 83036 ==

== ENCOUNTER 2024-06-22 10:18 | Outpatient (CLI) | payer MEDICARE, SELFPAY ==
--- NOTE | 2024-06-22 10:20 | XR_ITS ---
WS: [id number] Lumbar spine, 3 views, 06/22/2024 Clinical Data: M54.50 - Low back pain, unspecified Comparison: Lumbar spine, 09/11/2022 Findings: No compression fractures or subluxation is seen. No disc space narrowing is seen. Anterior spurring f rom L2-L5 is seen. The transverse processes and SI joints are normal. There is a calcification which probably overlies the right kidney unchanged. There is a calcification which may be in the mid left ureter which has changed in position. XR/XR lumbar spine 2-3V* [id number] Impression: 1. Degenerative spurring L2-L5. 2. Probable right renal calcification and possible left ureteral calcification.
== END 2024-06-22 10:19 | disposition home or self-care (01) ==
LOC: RAD 10:19
PROVIDERS: PCP Family Medicine; Visit Provider Nurse Practitioner Family
DX: M54.50 Low back pain, unspecified (principal); M25.78 Osteophyte, vertebrae; R93.89 Abnormal findings on diagnostic imaging of other specified body structures; E11.42 Type 2 diabetes mellitus with diabetic polyneuropathy; L84 Corns and callosities; L60.3 Nail dystrophy; Z79.4 Long term (current) use of insulin; G62.9 Polyneuropathy, unspecified
CPT/HCPCS: 11056; 11721; 72100; 99203

== ENCOUNTER → 2024-08-17 08:08 | Outpatient (BNVA) | payer MEDICARE, SELFPAY | PROVIDERS: PCP Family Medicine; Visit Provider Nurse Practitioner Family | DX: R06.02 Shortness of breath (principal); I10 Essential (primary) hypertension; E78.5 Hyperlipidemia, unspecified; I48.91 Unspecified atrial fibrillation; I48.92 Unspecified atrial flutter; Z87.891 Personal history of nicotine dependence; Z79.01 Long term (current) use of anticoagulants | CPT/HCPCS: 99214 ==

== ENCOUNTER → 2024-08-24 13:26 | Outpatient (BNVA) | payer MEDICARE, SELFPAY | PROVIDERS: PCP Family Medicine; Visit Provider Podiatrist Foot & Ankle Surgery | DX: E11.42 Type 2 diabetes mellitus with diabetic polyneuropathy (principal); L60.3 Nail dystrophy; L84 Corns and callosities; Z79.4 Long term (current) use of insulin; G62.9 Polyneuropathy, unspecified | CPT/HCPCS: 11056; 11721 ==

== ENCOUNTER → 2024-09-07 10:14 | Outpatient (BNVA) | payer MEDICARE, SELFPAY | PROVIDERS: PCP Family Medicine; Visit Provider Family Medicine | DX: E11.42 Type 2 diabetes mellitus with diabetic polyneuropathy (principal); Z79.4 Long term (current) use of insulin; E11.9 Type 2 diabetes mellitus without complications | CPT/HCPCS: 80048; 83036 ==

== ENCOUNTER → 2024-09-27 15:01 | Outpatient (BNVA) | payer MEDICARE, SELFPAY | PROVIDERS: PCP Family Medicine; Visit Provider Podiatrist Foot & Ankle Surgery | DX: E11.621 Type 2 diabetes mellitus with foot ulcer (principal); E11.42 Type 2 diabetes mellitus with diabetic polyneuropathy; Z79.4 Long term (current) use of insulin; G62.9 Polyneuropathy, unspecified; L84 Corns and callosities; L03.115 Cellulitis of right lower limb; L97.319 Non-pressure chronic ulcer of right ankle with unspecified severity | CPT/HCPCS: 99213 ==

== ENCOUNTER → 2024-10-04 09:16 | Outpatient (BNVA) | payer MEDICARE, SELFPAY | PROVIDERS: PCP Family Medicine; Visit Provider Nurse Practitioner Family | DX: R07.89 Other chest pain (principal); I48.91 Unspecified atrial fibrillation; I48.92 Unspecified atrial flutter; Z79.01 Long term (current) use of anticoagulants; I10 Essential (primary) hypertension; E78.5 Hyperlipidemia, unspecified; R60.9 Edema, unspecified; E11.9 Type 2 diabetes mellitus without complications; Z79.4 Long term (current) use of insulin; Z87.891 Personal history of nicotine dependence | CPT/HCPCS: 99214 ==

== ENCOUNTER 2024-10-23 10:13 | Outpatient (CLI) | payer MEDICARE, SELFPAY ==
--- NOTE | 2024-10-23 10:19 | USCV_ITS ---
Dennis Velez Age: 69 Gender: M : 1955 Exam Date: 10/23/2024 10:37 Ordering Phys: Daniela Harvey NP Technologist: MARGARITA Exam [place] [facility] [place] Indication: SoB BP: 113 / 64 HR: 80 Rhythm: Sinus Technical Quality: Adequate MEASUREMENTS (Male / Female) Normal Values 2D ECHO LV Diastolic Diameter PLAX 6.1 cm 4.2 - 5.9 / 3.9 - 5.3 cm IVS Diastolic Thickness 1.1 cm 0.6 - 1.0 / 0.6 - 0.9 cm IVS Systolic Thickness 2.0 cm LVPW Diastolic Thickness 0.7 cm 0.6 - 1.0 / 0.6 - 0.9 cm LVPW Systolic Thickness 1.7 cm LVOT Diameter 2.0 cm LV Ejection Fraction 2D Teich 65.9 % LV Ejection Fraction MOD 4C 66.7 % LV Ejection Fraction MOD 2C 42.9 % LV Ejection Fraction 2C AL 41.2 % LA Diameter 4.8 cm RA Systolic Volume 4C AL 64.1 ml RA Systolic Volume 4C MOD 62.4 ml LA Sys Volume AL 60.7 cm cubed LA Sys Volume Index AL 22.5 cm cubed/m squared Aorta at Sinotubular Diameter 2.5 cm M-MODE LA Ao Ratio MM 1.5 MV E Point Septal Separation 2.1 cm AV Cusp Separation MM 1.5 cm DOPPLER AV Peak Velocity 87.0 cm/s LVOT Peak Velocity 86.0 cm/s AV Area Cont Eq vti 3.6 cm squared AV Area Cont Eq pk 3.2 cm squared MV Peak Velocity 114.0 cm/s MV Area PHT 8.0 cm squared Mitral E to A Ratio 2.3 TR Peak Velocity 101.0 cm/s TR Peak Gradient 4.1 mmHg TV Peak E Velocity 95.0 cm/s PV Peak Velocity 91.0 cm/s FINDINGS Left Ventricle Normal left ventricular size, systolic function and wall thickness, with no regional wall motion abnormalities. Left ventricular ejection fraction is estimated at 60 %. Grade II/IV diastolic dysfunction, moderately elevated filling pressures. Right Ventricle The right ventricle is normal in size and function. Right Atrium The right atrium is normal in size. Left Atrium The left atrium is normal in size. Mitral Valve Moderately thickened mitral valve. No mitral valve stenosis. Mild mitral valve regurgitation. Aortic Valve Moderate aortic valve calcification. No aortic valve stenosis. Trace aortic valve regurgitation. Tricuspid Valve Structurally normal tricuspid valve without significant stenosis or regurgitation. Pulmonary artery systolic pressure is normal. Pulmonic Valve Structurally normal pulmonic valve without significant stenosis. There is no pulmonic regurgitation. Pericardium Normal pericardium without effusion. Aorta Normal ascending aorta dimension. IVC The inferior vena cava appears normal. CONCLUSIONS Normal left ventricular size, systolic function and wall thickness, with no regional wall motion abnormalities. Left ventricular ejection fraction is estimated at 60 %. Grade II/IV diastolic dysfunction, moderately elevated filling pressures. Moderate aortic valve calcification. No aortic valve stenosis. Trace aortic valve regurgitation. Moderately thickened mitral valve. No mitral valve stenosis. Mild mitral valve regurgitation. There is no pericardial effusion. Right atrial pressure is around 5 mm of mercury. Barbara Minor MD (Electronically Signed) Final Date: 04 Nov 2024 15:31 S
== END 2024-10-23 10:14 | disposition home or self-care (01) ==
LOC: RAD 10:14
PROVIDERS: PCP Family Medicine; Visit Provider Nurse Practitioner Family
DX: R06.02 Shortness of breath (principal); R93.1 Abnormal findings on diagnostic imaging of heart and coronary circulation; I34.0 Nonrheumatic mitral (valve) insufficiency; I35.8 Other nonrheumatic aortic valve disorders
CPT/HCPCS: 93306

== ENCOUNTER → 2024-10-26 13:12 | Outpatient (BNVA) | payer MEDICARE, SELFPAY | PROVIDERS: PCP Family Medicine; Visit Provider Podiatrist Foot & Ankle Surgery | DX: E11.42 Type 2 diabetes mellitus with diabetic polyneuropathy (principal); L60.3 Nail dystrophy; L84 Corns and callosities; I73.9 Peripheral vascular disease, unspecified; Z79.4 Long term (current) use of insulin; G62.9 Polyneuropathy, unspecified; R46.0 Very low level of personal hygiene | CPT/HCPCS: 11056; 11721; 99214 ==

== ENCOUNTER 2024-11-08 15:09 | Outpatient (CLI) | payer MEDICARE, SELFPAY ==
--- NOTE | 2024-11-08 15:45 | USR_ITS ---
PROCEDURE INFORMATION: Exam: US Duplex Bilateral Lower Extremity Arteries Exam date and time: 11/08/2024 3:39 PM Age: 69 years old Clinical indication: Condition or disease; Peripheral vascular disease; Additional info: Pad TECHNIQUE: Imaging protocol: Real-time ultrasound scan of the arteries of the bilateral lower extremities with 2-D martins scale, color Doppler flow and spectral waveform analysis. Images documented and saved. COMPARISON: CT kidney stone [id number] 08/24/2023 2:36 PM FINDINGS: Right common femoral artery: No occlusion or significant stenosis. Normal waveform. Right superficial femoral artery: No occlusion or significant stenosis. Normal waveform. Right popliteal artery: No occlusion or significant stenosis. Normal waveform. Right calf/foot arteries: No occlusion or significant stenosis in the visualized arteries. Normal waveforms. Dorsalis pedis artery is patent. Left common femoral artery: No occlusion or significant stenosis. Normal waveform. Left superficial femoral artery: No occlusion or significant stenosis. Normal waveform. Left popliteal artery: No occlusion or significant stenosis. Normal waveform. Left calf/foot arteries: No occlusion or significant stenosis in the visualized arteries. Normal waveforms. Dorsalis pedis artery is patent. Other findings: Ankle-brachial indices measuring 1.2 bilaterally. Slightly irregular heart rate. US/[place] [id number] IMPRESSION: 1. No evidence of hemodynamically significant arterial stenosis or occlusion in the lower extremities. 2. Ankle-brachial indices measuring 1.2 bilaterally. 3. Slightly irregular heart rate. Follow-up ECG recommended.
== END 2024-11-08 15:10 | disposition home or self-care (01) ==
PROVIDERS: PCP Family Medicine; Visit Provider Podiatrist Foot & Ankle Surgery
DX: E11.42 Type 2 diabetes mellitus with diabetic polyneuropathy (principal); Z79.4 Long term (current) use of insulin; I73.9 Peripheral vascular disease, unspecified
CPT/HCPCS: 93925

== ENCOUNTER 2024-11-17 09:37 | Outpatient (CLI) | payer MEDICARE, SELFPAY ==
[2024-11-17 10:01] VITALS: BMI 36.1
--- NOTE | 2024-11-17 10:02 | NMCV_ITS ---
NM noni perf SPECT r/s* [id number] Dennis Velez Age: 69 Gender: M : 1955 Exam Date: 11/17/2024 10:51 Ordering Phys: Acacia Benito Technologist: ELENA Griffin Exam Location: [facility] Indications: cp STRESS TEST Please see separate stress test report in [facility] for full findings IMAGE PROTOCOL Rest/Stress 1 Lexiscan Day Radiopharmaceutical Dose (mCi) Administration Site Administered by Rest: Tc-99m 10.3 IV Cindy Vega, EDGING MACHINE OPERATOR Sestamibi Stress:Tc-99m 33 IV Cindy Hardygle, EDGING MACHINE OPERATOR Sestamibi Rest: 17-Nov-2024 60 Discovery 630 Stress: 17-Nov-2024 30 Discovery 630 0.4mg Lexiscan. Images obtained in supine and prone position. SPECT RESULTS Technical Quality: Good Raw Data Analysis: Normal Image Corrections: No attenuation or motion correction applied Summed Stress Score: 0 Summed Rest Score: 0 Summed Difference Score: 0 PERFUSION FINDINGS SPECT images demonstrate homogeneous tracer distribution throughout the myocardium. FUNCTIONAL RESULTS (calculated via Gated SPECT) Stress Image LV EF (%): 61 Stress EDV (mL):117 TID: 1.22 Stress ESV (mL):46 FUNCTIONAL FINDINGS: There is normal left ventricular systolic function. TID ratio is elevated IMPRESSIONS 1. Normal myocardial perfusion imaging with no evidence of ischemia. 2. LV systolic function is normal. 3. TID ratio is elevated. However in absence of significant perfusion abnormalities, significance of this finding is equivocal. Tru Alcantar MD (Electronically Signed) Final Date: 21 November 2024 12:37 S
--- NOTE | 2024-11-17 10:02 | ECG_ITS ---
[facility]: [facility]24[facility]17 Pat Name: Dennis Velez Department: Room: Gender: Male Air Director: : 1955 Requested By: Acacia Benito Order Number: [id number] Reading MD: ALICJA HAMM Interpretive Statements Lung unchanged pre/post procedure; Intraprocedure shortess of breath; Symptoms resoled by discharge NOTE: Please note that this is the electrocardiogram portion of the Lexiscan/Sestamibi stress test. The perfusion scan will be documented separately. DATA: Baseline heart rate was 68 beats per minute. Baseline blood pressure was 130/92 millimeters of mercury. Target heart rate was 153. Maximum heart rate achieved was 87. which was 56 % of the predicted target heart rate. Maximum blood pressure was 158/92 millimeters of mercury. The reason for ending the test was completion of the protocol. The patient did not experience any symptoms. ELECTROCARDIOGRAM: BASELINE: Atrial fibrillation normal axis. Poor R wave progression in the anterior leads suggestive of possible old myocardial infarction versus lead placement EXERCISE: After Lexiscan injection, no ST-T changes suggestive of ischemic noted. No arrhythmia noted. CONCLUSION: Please note due to baseline abnormality of the EKG specificity and sensitivity of the EKG portion of LexiScan MIBI stress test will be low 1. EKG not suggestive of ischemia 2. Lexiscan injection unremarkable. 3. Perfusion scan will be documented separately. Electronically Signed On 11-19-2024 20:00:38 CDT by ALICJA HAMM [id number] [id number]
[2024-11-17] MEDS: regadenoson 0.4 Mg/5 ml Syringe IVP (11:22)
[2024-11-17 11:32] VITALS: BP 154/79; PULSE 68
== END 2024-11-17 09:38 | disposition home or self-care (01) ==
LOC: CDL 09:39
PROVIDERS: PCP Family Medicine; Visit Provider Nurse Practitioner Family
DX: R07.9 Chest pain, unspecified (principal); R06.09 Other forms of dyspnea; R93.1 Abnormal findings on diagnostic imaging of heart and coronary circulation
CPT/HCPCS: 36415; 78452; 93017; 96374; A9500; J2785

== ENCOUNTER → 2024-11-30 09:44 | Outpatient (BNVA) | payer MEDICARE, SELFPAY | PROVIDERS: PCP Family Medicine; Visit Provider Family Medicine | DX: I10 Essential (primary) hypertension (principal); E11.42 Type 2 diabetes mellitus with diabetic polyneuropathy; Z79.4 Long term (current) use of insulin; E11.9 Type 2 diabetes mellitus without complications; Z12.5 Encounter for screening for malignant neoplasm of prostate | CPT/HCPCS: 80048; 83036; G0103 ==

== ENCOUNTER → 2024-12-28 13:16 | Outpatient (BNVA) | payer MEDICARE, SELFPAY | PROVIDERS: PCP Family Medicine; Visit Provider Podiatrist Foot & Ankle Surgery | DX: E11.42 Type 2 diabetes mellitus with diabetic polyneuropathy (principal); L60.3 Nail dystrophy; Z79.4 Long term (current) use of insulin; L84 Corns and callosities; G62.9 Polyneuropathy, unspecified; R46.0 Very low level of personal hygiene; I73.9 Peripheral vascular disease, unspecified | CPT/HCPCS: 11721 ==

== ENCOUNTER → 2025-01-03 10:27 | Outpatient (BNVA) | payer MEDICARE, SELFPAY | PROVIDERS: PCP Family Medicine; Visit Provider Internal Medicine | DX: E11.42 Type 2 diabetes mellitus with diabetic polyneuropathy (principal); Z79.4 Long term (current) use of insulin; E78.2 Mixed hyperlipidemia | CPT/HCPCS: 99214 ==

== ENCOUNTER → 2025-01-16 13:55 | Outpatient (BNVA) | payer MEDICARE, SELFPAY | PROVIDERS: PCP Family Medicine; Visit Provider Internal Medicine Cardiovascular Disease | DX: I48.91 Unspecified atrial fibrillation (principal); Z79.01 Long term (current) use of anticoagulants; I48.92 Unspecified atrial flutter; I10 Essential (primary) hypertension; F33.1 Major depressive disorder, recurrent, moderate; L97.929 Non-pressure chronic ulcer of unspecified part of left lower leg with unspecified severity; E78.5 Hyperlipidemia, unspecified; E11.65 Type 2 diabetes mellitus with hyperglycemia; Z79.4 Long term (current) use of insulin; Z87.891 Personal history of nicotine dependence | CPT/HCPCS: 99214 ==

== ENCOUNTER → 2025-02-26 08:33 | Outpatient (BNVA) | payer MEDICARE, SELFPAY | PROVIDERS: PCP Family Medicine; Visit Provider Family Medicine | DX: R35.0 Frequency of micturition (principal) | CPT/HCPCS: 81000; 87086 ==

== ENCOUNTER → 2025-02-28 08:09 | Outpatient (BNVA) | payer MEDICARE, SELFPAY | PROVIDERS: PCP Family Medicine; Visit Provider Thoracic Surgery (Cardiothoracic Vascular Surgery) | DX: I96 Gangrene, not elsewhere classified (principal); L97.311 Non-pressure chronic ulcer of right ankle limited to breakdown of skin | CPT/HCPCS: 97597 ==

== ENCOUNTER → 2025-03-07 13:07 | Outpatient (BNVA) | payer MEDICARE, SELFPAY | PROVIDERS: PCP Family Medicine; Visit Provider Thoracic Surgery (Cardiothoracic Vascular Surgery) | DX: E11.52 Type 2 diabetes mellitus with diabetic peripheral angiopathy with gangrene (principal); E11.622 Type 2 diabetes mellitus with other skin ulcer; L97.311 Non-pressure chronic ulcer of right ankle limited to breakdown of skin | CPT/HCPCS: 97597 ==

== ENCOUNTER → 2025-03-14 11:11 | Outpatient (BNVA) | payer MEDICARE, SELFPAY | PROVIDERS: PCP Family Medicine; Visit Provider Podiatrist Foot & Ankle Surgery | DX: E11.42 Type 2 diabetes mellitus with diabetic polyneuropathy (principal); L60.3 Nail dystrophy; E11.8 Type 2 diabetes mellitus with unspecified complications; Z79.4 Long term (current) use of insulin; G62.9 Polyneuropathy, unspecified; L84 Corns and callosities; R46.0 Very low level of personal hygiene; I73.9 Peripheral vascular disease, unspecified; L97.522 Non-pressure chronic ulcer of other part of left foot with fat layer exposed | CPT/HCPCS: 11721; 99213 ==

== ENCOUNTER → 2025-03-15 16:09 | Outpatient (BNVA) | payer MEDICARE, SELFPAY | PROVIDERS: PCP Family Medicine; Visit Provider Nurse Practitioner | DX: Z87.440 Personal history of urinary (tract) infections (principal); N39.0 Urinary tract infection, site not specified | CPT/HCPCS: 81000; 87086 ==

== ENCOUNTER → 2025-03-21 10:22 | Outpatient (BNVA) | payer MEDICARE, SELFPAY | PROVIDERS: PCP Family Medicine; Visit Provider Internal Medicine | DX: E78.2 Mixed hyperlipidemia (principal); E11.42 Type 2 diabetes mellitus with diabetic polyneuropathy; Z79.4 Long term (current) use of insulin | CPT/HCPCS: 80053; 80061; 82043; 83036 ==

== ENCOUNTER → 2025-03-22 13:59 | Outpatient (BNVA) | payer MEDICARE, SELFPAY | PROVIDERS: PCP Family Medicine; Visit Provider Thoracic Surgery (Cardiothoracic Vascular Surgery) | DX: I96 Gangrene, not elsewhere classified (principal); L97.311 Non-pressure chronic ulcer of right ankle limited to breakdown of skin | CPT/HCPCS: 97597 ==

== ENCOUNTER → 2025-04-03 13:27 | Outpatient (BNVA) | payer MEDICARE, SELFPAY | PROVIDERS: PCP Family Medicine; Visit Provider Thoracic Surgery (Cardiothoracic Vascular Surgery) | DX: E11.52 Type 2 diabetes mellitus with diabetic peripheral angiopathy with gangrene (principal); E11.622 Type 2 diabetes mellitus with other skin ulcer; L97.311 Non-pressure chronic ulcer of right ankle limited to breakdown of skin | CPT/HCPCS: 97597 ==

== ENCOUNTER → 2025-04-10 09:12 | Outpatient (BNVA) | payer MEDICARE, SELFPAY | PROVIDERS: PCP Family Medicine; Visit Provider Internal Medicine Endocrinology, Diabetes & Metabolism | DX: E11.9 Type 2 diabetes mellitus without complications (principal); E78.5 Hyperlipidemia, unspecified; Z79.4 Long term (current) use of insulin; E66.9 Obesity, unspecified | CPT/HCPCS: 36415; 80053; 82044; 83036; 99214 ==

== ENCOUNTER → 2025-04-17 13:29 | Outpatient (BNVA) | payer MEDICARE, SELFPAY | PROVIDERS: PCP Family Medicine; Visit Provider Thoracic Surgery (Cardiothoracic Vascular Surgery) | DX: I96 Gangrene, not elsewhere classified (principal); L97.311 Non-pressure chronic ulcer of right ankle limited to breakdown of skin | CPT/HCPCS: 97597 ==

== ENCOUNTER → 2025-05-01 08:07 | Outpatient (BNVA) | payer MEDICARE, SELFPAY | PROVIDERS: PCP Family Medicine; Visit Provider Thoracic Surgery (Cardiothoracic Vascular Surgery) | DX: E11.52 Type 2 diabetes mellitus with diabetic peripheral angiopathy with gangrene (principal); E11.622 Type 2 diabetes mellitus with other skin ulcer; L97.311 Non-pressure chronic ulcer of right ankle limited to breakdown of skin | CPT/HCPCS: 97597; A6212 ==

== ENCOUNTER → 2025-05-18 11:03 | Outpatient (BNVA) | payer MEDICARE, MEDICAID, SELFPAY | PROVIDERS: PCP Family Medicine; Visit Provider Thoracic Surgery (Cardiothoracic Vascular Surgery) | DX: E11.52 Type 2 diabetes mellitus with diabetic peripheral angiopathy with gangrene (principal); E11.622 Type 2 diabetes mellitus with other skin ulcer; L97.311 Non-pressure chronic ulcer of right ankle limited to breakdown of skin | CPT/HCPCS: 97597 ==